=== PATIENT | male | born 1960 | race Caucasian/White ===

== ENCOUNTER 2023-08-31 07:45 | Outpatient (CLI) | payer OTHER, SELFPAY | END 2023-08-31 07:46 | disposition home or self-care (01) | LOC: WOUND 07:50 | PROVIDERS: PCP Family Medicine; Visit Provider Nurse Practitioner Family | DX: E11.621 Type 2 diabetes mellitus with foot ulcer (principal); E11.40 Type 2 diabetes mellitus with diabetic neuropathy, unspecified; L97.512 Non-pressure chronic ulcer of other part of right foot with fat layer exposed; N18.30 Chronic kidney disease, stage 3 unspecified; L60.3 Nail dystrophy; Z89.512 Acquired absence of left leg below knee; Z79.84 Long term (current) use of oral hypoglycemic drugs; Z79.85 Long-term (current) use of injectable non-insulin antidiabetic drugs | CPT/HCPCS: 11042; 11719; G0463 ==

== ENCOUNTER 2023-09-07 08:01 | Outpatient (CLI) | payer OTHER, SELFPAY | END 2023-09-07 08:02 | disposition home or self-care (01) | LOC: WOUND 08:01 | PROVIDERS: PCP Family Medicine; Visit Provider Nurse Practitioner Family | DX: E11.621 Type 2 diabetes mellitus with foot ulcer (principal); E11.40 Type 2 diabetes mellitus with diabetic neuropathy, unspecified; L97.512 Non-pressure chronic ulcer of other part of right foot with fat layer exposed; Z79.84 Long term (current) use of oral hypoglycemic drugs; Z79.85 Long-term (current) use of injectable non-insulin antidiabetic drugs | CPT/HCPCS: 97597 ==

== ENCOUNTER 2023-09-10 14:51 | Outpatient (CLI) | payer OTHER, SELFPAY ==
[2023-09-10 17:13] LABS: Basophils Absolute Auto 0.03 K/uL (0.00-0.30); Basophils Percent Auto 0.3 % (0.0-3.0); Eosinophils Absolute Auto 0.07 K/uL (0.00-0.50); Eosinophils Percent Auto 0.7 % (0.0-7.0); Hematocrit 44.9 % (37.0-53.0); Hemoglobin* 14.5 gm/dL (13.5-17.5); Lymphocytes Absolute Auto 2.04 K/uL (0.90-2.90); Lymphocytes Percent Auto 20.3 % (20-44); Mean Corpuscular HGB Conc 32 gm/dL (32-36); Mean Corpuscular Hemoglobin 30 pg (26-34); Mean Corpuscular Volume 93 fL (80-100); Monocytes Percent Auto 8.3 % (0.0-11.0); Neutrophils Absolute Auto 6.99 K/uL (1.7-7.0); Neutrophils Percent Auto 69.4 % (42.0-72.0); Platelet Count* 183 K/uL (140-440); RDW Coefficient of Variation % 12.5 % (11.5-15.5); Red Blood Count 4.84 m/uL (4.30-5.90); White Blood Count* 10.06 K/uL (4.50-11.00)
[2023-09-10 17:15] LABS: Slide Review Reflex No
[2023-09-10 17:27] LABS: Chloride* 104 mmol/L (96-114); Potassium* 4.4 mmol/L (3.6-5.1); Sodium* 138 mmol/L (135-149)
[2023-09-10 17:30] LABS: Creatinine* 1.6 mg/dL (0.5-1.5); Estimated Glomerular Filt Rate 48 ml/min
[2023-09-10 17:31] LABS: Anion Gap 11 mEq/L (7-15); Blood Urea Nitrogen* 35 mg/dL (7-30); Calcium* 9.4 mg/dL (8.4-10.6); Carbon Dioxide* 23 mmol/L (20-32); Glucose* 89 mg/dL (60-115)
== END 2023-09-10 14:52 | disposition home or self-care (01) ==
LOC: WOUND 14:51
PROVIDERS: PCP Family Medicine; Visit Provider Physician Assistant
DX: E11.621 Type 2 diabetes mellitus with foot ulcer (principal); E11.40 Type 2 diabetes mellitus with diabetic neuropathy, unspecified; L97.518 Non-pressure chronic ulcer of other part of right foot with other specified severity; R52 Pain, unspecified; Z87.39 Personal history of other diseases of the musculoskeletal system and connective tissue; Z89.512 Acquired absence of left leg below knee; Z79.84 Long term (current) use of oral hypoglycemic drugs
CPT/HCPCS: 11042; 36415; 80048; 85025; 86140; 87070; G0463

== ENCOUNTER 2023-09-14 10:03 | Outpatient (CLI) | payer OTHER, SELFPAY | END 2023-09-14 10:04 | disposition home or self-care (01) | LOC: WOUND 10:03 | PROVIDERS: PCP Family Medicine; Visit Provider Nurse Practitioner Family | DX: E11.621 Type 2 diabetes mellitus with foot ulcer (principal); E11.40 Type 2 diabetes mellitus with diabetic neuropathy, unspecified; L97.412 Non-pressure chronic ulcer of right heel and midfoot with fat layer exposed; Z79.84 Long term (current) use of oral hypoglycemic drugs; Z79.85 Long-term (current) use of injectable non-insulin antidiabetic drugs | CPT/HCPCS: 11042 ==

== ENCOUNTER 2023-09-17 12:43 | Outpatient (CLI) | payer OTHER, SELFPAY | END 2023-09-17 12:44 | disposition home or self-care (01) | PROVIDERS: PCP Family Medicine; Visit Provider Nurse Practitioner Family | DX: E11.621 Type 2 diabetes mellitus with foot ulcer (principal); E11.40 Type 2 diabetes mellitus with diabetic neuropathy, unspecified; L97.512 Non-pressure chronic ulcer of other part of right foot with fat layer exposed; Z79.84 Long term (current) use of oral hypoglycemic drugs; Z79.85 Long-term (current) use of injectable non-insulin antidiabetic drugs | CPT/HCPCS: 15275; Q4101 ==

== ENCOUNTER 2023-09-21 08:54 | Outpatient (CLI) | payer OTHER, SELFPAY | END 2023-09-21 08:55 | disposition home or self-care (01) | LOC: WOUND 08:54 | PROVIDERS: PCP Family Medicine; Visit Provider Nurse Practitioner Family | DX: E11.621 Type 2 diabetes mellitus with foot ulcer (principal); E11.40 Type 2 diabetes mellitus with diabetic neuropathy, unspecified; L97.512 Non-pressure chronic ulcer of other part of right foot with fat layer exposed; Z79.84 Long term (current) use of oral hypoglycemic drugs | CPT/HCPCS: G0463 ==

== ENCOUNTER 2023-09-28 08:54 | Outpatient (CLI) | payer OTHER, SELFPAY | END 2023-09-28 08:55 | disposition home or self-care (01) | LOC: WOUND 08:54 | PROVIDERS: PCP Family Medicine; Visit Provider Nurse Practitioner Family | DX: E11.621 Type 2 diabetes mellitus with foot ulcer (principal); E11.40 Type 2 diabetes mellitus with diabetic neuropathy, unspecified; L97.512 Non-pressure chronic ulcer of other part of right foot with fat layer exposed; N18.30 Chronic kidney disease, stage 3 unspecified; Z79.84 Long term (current) use of oral hypoglycemic drugs | CPT/HCPCS: 15275; Q4101 ==

== ENCOUNTER 2023-10-03 08:59 | Outpatient (CLI) | payer OTHER, SELFPAY | END 2023-10-03 09:00 | disposition home or self-care (01) | LOC: WOUND 08:59 | PROVIDERS: PCP Family Medicine; Visit Provider Physician Assistant | DX: E11.621 Type 2 diabetes mellitus with foot ulcer (principal); E11.40 Type 2 diabetes mellitus with diabetic neuropathy, unspecified; L97.515 Non-pressure chronic ulcer of other part of right foot with muscle involvement without evidence of necrosis; E11.22 Type 2 diabetes mellitus with diabetic chronic kidney disease; N18.30 Chronic kidney disease, stage 3 unspecified; Z79.84 Long term (current) use of oral hypoglycemic drugs | CPT/HCPCS: 87070; 87186; 96372; 97597; G0463; J0696 ==

== ENCOUNTER 2023-10-05 10:21 | Outpatient (CLI) | payer OTHER, SELFPAY | END 2023-10-05 10:22 | disposition home or self-care (01) | LOC: WOUND 10:21 | PROVIDERS: PCP Family Medicine; Visit Provider Nurse Practitioner Family | DX: M86.171 Other acute osteomyelitis, right ankle and foot (principal); E11.621 Type 2 diabetes mellitus with foot ulcer; E11.40 Type 2 diabetes mellitus with diabetic neuropathy, unspecified; L97.518 Non-pressure chronic ulcer of other part of right foot with other specified severity; Z79.4 Long term (current) use of insulin; Z79.84 Long term (current) use of oral hypoglycemic drugs | CPT/HCPCS: G0463 ==

== ENCOUNTER 2023-10-05 11:24 | Inpatient (IN) | payer OTHER, SELFPAY ==
[2023-10-05] VITALS (26 sets, daily range): BP systolic 106–145; BP diastolic 54–76; PULSE 62–73; RESP 16–20; TEMP 36.4–37.2; O2SAT 90–98; BMI 41.1
--- NOTE | 2023-10-05 12:07 | ED.GENADULT ---
HPI - General Adult General Chief complaint: Extremity Pain/Injury, Lower Stated complaint: R foot ulcer Time Seen by Provider: 10/05/23 12:06 History of Present Illness HPI narrative: Patient was seen in wound clinic this AM where they are concerned about worsening infection. Has outlined skin on right galicia that was marked on Sunday, redness now extends outside of this border . Also endorses chills and severe neck pain that started at same time 63-year-old man presenting to the emergency department on advice of wound clinic this morning with concern of infection on his galicia. Three days ago started to note some redness in his right galicia. Around this time and also been experiencing some chills. The redness has not expanded from a marked was made on Sunday. Also has of ulcer poorly healing on the right outer right foot. Noted to have a would defer this drainage. This apparently has been collected for wound culture a couple of days ago at the wound clinic. He does have a history of being seen by Podiatry. Who had referred him to the wound clinic. He has had increasing neck pain that seems to have a vault a few days ago as well at rest. Unclear if he actually woke with this. Hurts more to move his neck to the left. Transitions are just painful. Concern is of meningitis. Have not measured a fever but as noted had been chilled. No radicular symptoms noted. Does have a history of amputation of the left lower leg. History of diabetes. Is requesting pain medication mentions oxycodone treatment for pain in his neck and upper back. Related Data Home Medications Medication Instructions Recorded Confirmed amlodipine 10 mg tablet 10 mg PO DAILY 10/05/23 10/05/23 aspirin 81 mg tablet,delayed 81 mg PO DAILY 10/05/23 10/05/23 release atorvastatin 20 mg tablet 20 mg PO DAILY 10/05/23 10/05/23 dulaglutide 3 mg/0.5 mL 3 mg subcut Q7D 10/05/23 10/05/23 subcutaneous pen injector (Trulicity) empagliflozin 25 mg tablet 25 mg PO DAILY 10/05/23 10/05/23 (Jardiance) glipizide 10 mg tablet, extended 20 mg PO DAILY 10/05/23 10/05/23 release 24 hr lisinopril 20 mg tablet 20 mg PO DAILY 10/05/23 10/05/23 lisinopril 20 1 tab PO DAILY 10/05/23 10/05/23 mg-hydrochlorothiazide 25 mg tablet Allergies Allergy/AdvReac Type Severity Reaction Status Date / Time canagliflozin [From Invokana] AdvReac Severe Vomiting Unverified 10/05/23 15:28 liraglutide [From Victoza] AdvReac Intermediate Unverified 10/05/23 15:28 metformin AdvReac Intermediate Unverified 10/05/23 15:28 Review of Systems Status of ROS: Reports: 6 or more systems reviewed and unremarkable except as noted in History and below [facility] Medical History (Updated 10/07/23 @ 12:33 by Lashanda Bai PA-C) Hyperlipidemia ?E78.5 - Hyperlipidemia, unspecified (ICD-10) Diabetic neuropathy ?E11.40 - Type 2 diabetes mellitus with diabetic neuropathy, unspecified (ICD-10) Diabetic retinopathy ?E11.319 - Type 2 diabetes mellitus with unspecified diabetic retinopathy without macular edema (ICD-10) Welcome syndrome ?E80.4 - Gilbert syndrome (ICD-10) Phantom limb pain ?G54.6 - Phantom limb syndrome with pain (ICD-10) CKD (chronic kidney disease) stage 3, GFR 30-59 ml/min ?N18.30 - Chronic kidney disease, stage 3 unspecified (ICD-10) Type 2 diabetes mellitus ?E11.9 - Type 2 diabetes mellitus without complications (ICD-10) Degenerative joint disease (DJD) of lumbar spine ?M47.816 - Spondylosis without myelopathy or radiculopathy, lumbar region (ICD-10) Hypertension ?I10 - Essential (primary) hypertension (ICD-10) Obesity ?E66.9 - Obesity, unspecified (ICD-10) Surgical History (Updated 10/05/23 @ 15:24 by Mary Beth Beard MD) Amputation of fifth toe of left foot ?S98.132A - Complete traumatic amputation of one left lesser toe, initial encounter (ICD-10) H/O spinal fusion ?Z98.1 - Arthrodesis status (ICD-10) Below-knee amputation of left lower extremity ?S88.112A - Complete traumatic amputation at level between knee and ankle, left lower leg, initial encounter (ICD-10) Social History What is your current living situation?: I presently have a place to live Problems where you live: no known problems Problems where you live details: none known In the past 12 months, utilities in danger of being shut off: no In past 12 months, lack of transportation kept you from medical appts, meetings, work, or getting things needed for daily living: no In the past 12 mos, have been you worried that your food would run out before you had money to buy more?: never true In the past 12 mos, the food you bought just didn't last and you didn't have money to buy more?: never true Smoking Status: Never smoker How often do you have a drink containing alcohol: monthly or less AUDIT-C Alcohol total score: 1 Non-prescribed substance use: denies use How often does anyone, including family, friends and others, physically hurt you: never How often does anyone, including family, friends and others, insult or talk down to you: never How often does anyone, including family, friends and others, threaten you with harm: never How often does anyone, including family, friends and others, scream or curse at you: never Exam Narrative: Exam Narrative: Appears generally uncomfortable sitting stiffly. Quite sore to palpation over the left greater than right paracervical musculature and into the rhomboids. Actually cries out as I press the trapezius on the left as well. Limited in head rotation more to the left than the right. Breathing easily. Heart in regular rate and rhythm. Prosthetic in place on the left lower leg consistent with report of below the knee amputation. On the right foot there was some large calluses. At the outer 5th M TP there is an approximately 2 to 2.5 cm maximal dimension ulceration that is oozing some serosanguineous fluid. There is an odor. Erythema surrounding this as well with mild calor. Another patch of erythema in the right mid galicia with mild induration and mild calor. Hand sized area patch here. Const: Vital Signs, click to edit/add: Vital Signs - 24 hr 10/05/23 11:43 Temperature 99 F Pulse Rate [Femora l] 67 Respiratory Rate 20 Blood Pressure [Ri ght Upper Arm] 132/69 Pulse Oximetry 97 Oxygen Delivery Me thod Room Air Documenting provider has reviewed patient's vital signs: yes Course Vital Signs Vital signs: Initial Vital Signs Temperature 99 F 10/05/23 11:43 Temperature Source Temporal Artery Scan 10/05/23 11:43 Pulse Rate 67 10/05/23 11:43 Respiratory Rate 20 10/05/23 11:43 Blood Pressure 132/69 10/05/23 11:43 Blood Pressure Mean 90 10/05/23 11:43 Pulse Oximetry 97 10/05/23 11:43 Oxygen Delivery Method Room Air 10/05/23 11:43 Vital Signs Temperature 99 F 10/05/23 11:43 Pulse Rate 67 10/05/23 11:43 Respiratory Rate 20 10/05/23 11:43 Blood Pressure 132/69 10/05/23 11:43 Pulse Oximetry 97 10/05/23 11:43 Oxygen Delivery Method Room Air 10/05/23 11:43 Temperature 97.4 F L 10/07/23 19:40 Pulse Rate 61 10/07/23 23:00 Respiratory Rate 18 10/08/23 06:00 Blood Pressure 140/70 H 10/07/23 23:00 Pulse Oximetry 95 10/07/23 23:00 Oxygen Delivery Method Room Air 10/07/23 23:00 Medications Administered Medications: Generic Name Dose Route Start Last Admin Trade Name Freq PRN Reason Stop Dose Admin Acetaminophen 650 - 975 mg 10/05/23 15:01 10/08/23 06:21 Acetaminophen 325 Mg Tablet PO 975 mg Q6H PRN Administration Amlodipine Besylate 10 mg 10/06/23 09:00 10/07/23 08:44 Amlodipine 10 Mg Tablet PO 10 mg DAILY OSMIN Administration Atorvastatin Calcium 20 mg 10/06/23 09:00 10/07/23 08:44 Atorvastatin 10 Mg Tablet PO 20 mg DAILY OSMIN Administration Baclofen 5 - 10 mg 10/07/23 21:30 10/07/23 22:45 Baclofen 10 Mg Tablet PO 10 mg Q8H PRN Administration neck pain Glipizide 20 mg 10/06/23 09:00 10/07/23 08:45 Glipizide Xl 5 Mg Tab PO 20 mg DAILY OSMIN Administration Hydromorphone HCl 0.2 - 0.5 mg 10/05/23 19:57 10/08/23 02:30 Hydromorphone 0.5 Mg/0.5 Ml Inj IVP 0.5 mg Q2H PRN Administration Pain Ceftriaxone Sodium 2 gm/ 100 mls @ 200 mls/hr 10/06/23 13:15 10/07/23 13:30 Sodium Chloride IVPB Infused Q24H OSMIN Infusion Vancomycin HCl 1,000 mg/ 260 mls @ 258.75 mls/hr 10/07/23 16:00 10/07/23 19:05 Sodium Chloride IVPB Infused Q24H OSMIN Infusion Protocol Sodium Chloride 1,000 mls @ 50 mls/hr 10/07/23 12:56 10/07/23 15:35 0.9 % Sodium Chloride 1000 Ml IV 10/08/23 08:55 50 mls/hr .Q20H OSMIN Administration Insulin Aspart 0 unit 10/05/23 17:30 10/07/23 20:57 Insulin Aspart 100 Unit/Ml SUBCUT 1 unit ACHS OSMIN Administration Protocol Lidocaine 1 patch 10/06/23 15:00 10/07/23 15:34 Lidocaine 5% Patch TRANSDERMA Not Given Q24H [facility] Protocol Menthol 1 applic 10/06/23 18:00 10/07/23 22:53 Menthol 57 Gm Gel TOPICAL 1 applic Q6H OSMIN Administration Dulaglutide [ 3 mg 10/07/23 11:30 10/07/23 11:39 Trulicity] 3 Mg/0.5 SUBCUT 3 mg Ml Pen Injector Berman@1130 OSMIN Administration Oxycodone HCl 5 mg 10/05/23 19:57 10/08/23 06:22 Oxycodone 5 Mg Tablet PO 5 mg Q4H PRN Administration Sodium Chloride 5 ml 10/05/23 15:01 10/08/23 02:30 Sodium Chloride 0.9 % (Flush) 10 Ml Syringe IVF 5 ml .FLUSH PRN Administration Sodium Chloride 5 ml 10/05/23 21:00 10/07/23 21:30 Sodium Chloride 0.9 % (Flush) 10 Ml Syringe IVF Not Given BID OSMIN Tramadol HCl 50 mg 10/05/23 19:57 10/07/23 20:55 Tramadol Hcl 50 Mg Tablet PO 50 mg Q6H PRN Administration Discontinued Medications Generic Name Dose Route Start Last Admin Trade Name Freq PRN Reason Stop Dose Admin Acetaminophen 325 - 650 mg 10/05/23 17:28 10/05/23 19:07 Acetaminophen 325 Mg Tablet PO 10/05/23 17:29 Not Given ONCE ONE Hydrocodone Bitart/Acetaminophen 2 tab 10/05/23 12:29 10/05/23 12:54 Hydrocodone-Acetamin 5-325 Mg 1 Tab PO 10/05/23 12:30 2 tab ONCE ONE Administration Baclofen 5 - 10 mg 10/06/23 15:30 10/07/23 14:31 Baclofen 10 Mg Tablet PO 10 mg TID OSMIN Administration Bupivacaine HCl 30 ml 10/05/23 17:24 10/05/23 17:20 Bupivacaine 0.5% 30 Ml INJECTION 10/05/23 17:25 20 ml ONCE ONE Administration Sodium Chloride 1,000 mls @ 1,000 mls/hr 10/05/23 12:29 10/05/23 14:10 0.9 % Sodium Chloride 1000 Ml IV 10/05/23 13:28 Infused .Q1H ONE Infusion Piperacillin Sod/Tazobactam 100 mls @ 200 mls/hr 10/05/23 14:27 10/07/23 07:36 Sod 3.375 gm/ Sodium Chloride IVPB 10/05/23 14:28 Infused ONCE ONE Infusion Vancomycin HCl 2,000 mg/ 520 mls @ 260 mls/hr 10/05/23 14:35 10/07/23 07:36 Sodium Chloride IVPB 10/05/23 16:34 Infused ONCE ONE Infusion Protocol Lactated Ringer's 1,000 mls @ 75 mls/hr 10/05/23 15:05 10/07/23 07:37 Lactated Ringers 1000 Ml IV Infused .[id number] OSMIN Infusion Piperacillin Sod/Tazobactam 100 mls @ 200 mls/hr 10/05/23 21:00 10/06/23 10:00 Sod 3.375 gm/ Sodium Chloride IVPB Infused Q6H OSMIN Infusion Vancomycin HCl 1,250 mg/ 262.5 mls @ 258.75 mls/hr 10/06/23 16:00 10/07/23 07:37 Sodium Chloride IVPB Infused Q24H OSMIN Infusion Protocol Sodium Chloride 500 mls @ 500 mls/hr 10/07/23 07:43 10/07/23 10:45 0.9 % Sodium Chloride 500 Ml IV 10/07/23 08:42 Infused .Q1H ONE Infusion Ibuprofen 400 mg 10/05/23 12:29 03/08/24 12:54 Ibuprofen 200 Mg Tablet PO 10/05/23 12:30 400 mg ONCE ONE Administration Meperidine HCl 12.5 mg 10/05/23 17:28 10/05/23 19:07 Meperidine 25 Mg/Ml Inj IVP 10/05/23 17:29 Not Given ONCE ONE Non-Formulary Medication 3 mg 10/05/23 15:15 10/05/23 16:12 Dulaglutide [Trulicity] SUBCUT Not Given Q7D OSMIN Medical Decision Making MDM Narrative Medical decision making narrative: I think the neck issue was more related to some degree of immobility. There appears to be more muscle tension in the area. I do not think this represents meningitis. I would screen for influenza and COVID however. Blood cultures and anticipate IV antibiotics for cellulitis or infected wound. Will be discussing with podiatry. X-rays looking for osteomyelitis. Was given ibuprofen and [place]. Along with soft collar is more comfortable on reassessment. X-ray of the right foot reviewed by me shows ulceration and what looks to be some erosion of the bone in the area of the 5th MTP joint. Vascular calcifications noted as well. Radiology over-read on preliminary noting ?findings suggestive of underlying osteomyelitis modified later to include subcutaneous emphysema Final Report: Indication: Right foot ulcer at 5th MTP. Eval for osteo Technique: Two views of the right foot Comparison: None Findings: No acute fracture or malalignment. There is some degenerative changes throughout the interphalangeal joints and midfoot. Prominent calcaneal enthesophytes. Soft tissue ulcer seen along the lateral aspect of the 5th MTP joint with regional osteopenia/lysis and cortical erosion of the 5th metatarsal head. There is soft tissue edema and subcutaneous emphysema seen in the soft tissues along the 5th metatarsal. Prominent vascular calcifications. Impression: 1. Soft tissue ulcer along the lateral aspect of the 5th MTP joint with radiographic findings suggestive of underlying osteomyelitis of the 5th metatarsal head. 2. Soft tissue edema and subcutaneous emphysema seen in the soft tissues along the 5th metatarsal Initiating Zosyn and vancomycin. Discussed these findings with Podiatry and hospitalist for admission. Medical Records Medical records reviewed: Yes I reviewed the patient's medical records Lab Data Lab results reviewed: Yes I reviewed the patient's lab results Labs: Lab Results 10/05/23 10/05/23 Range/Units 12:55 14:00 WBC 12.41 H (4.50-11.00) K/uL RBC 4.44 (4.30-5.90) m/uL Hgb 13.3 L (13.5-17.5) gm/dL Hct 40.5 (37.0-53.0) % MCV 91 (80-100) fL MCH 30 (26-34) pg MCHC 33 (32-36) gm/dL RDW Coeff of Kushal 12.8 (11.5-15.5) % Plt Count 279 (140-440) K/uL Neut % (Auto) 79.2 H (42.0-72.0) % Lymph % (Auto) 11.7 L (20-44) % [place] % (Auto) 6.7 (0.0-11.0) % Eos % (Auto) 1.2 (0.0-7.0) % Baso % (Auto) 0.2 (0.0-3.0) % Neut # (Auto) 9.80 H (1.7-7.0) K/uL Lymph # (Auto) 1.50 (0.90-2.90) K/uL [place] # (Auto) 0.80 (0.00-0.90) K/UL Eos # (Auto) 0.10 (0.00-0.50) K/uL Baso # (Auto) 0.00 (0.00-0.30) K/uL Abs Immat Gran (auto) 0.10 (0.00-0.30) K/uL Imm/Tot Granulo (auto) 1.0 % VBG pH 7.360 (7.32-7.43) VBG pCO2 44 (40-50) mmHG VBG pO2 (25-47) mmHG VBG HCO3 25 (21-28) mmol/L Sodium 136 (135-149) mmol/L Potassium 4.4 (3.6-5.1) mmol/L Chloride 103 (96-114) mmol/L Carbon Dioxide 24 (20-32) mmol/L Anion Gap 9 (7-15) mEq/L BUN 47 H (7-30) mg/dL Creatinine 1.7 H (0.5-1.5) mg/dL Estimated Creat Clear 43.03 Estimated GFR 45 ml/min Glucose 161 H (60-115) mg/dL Hemoglobin A1c 7.1 H (0-5.6) % Lactate 1.2 (0.5-1.9) mmol/L Calcium 9.5 (8.4-10.6) mg/dL C-Reactive Protein 13.5 H (0.5-1.0) mg/dL Procalcitonin 0.39 (<0.50) ng/mL Urine Color Yellow (Yellow) Urine Appearance Slightly Cloudy A (Clear) Urine pH 5.5 (5.0-8.5) Ur Specific [place] 1.020 (1.000-1.030) Urine Protein Negative (Negative) Urine Glucose (UA) 2+ A (Negative) Urine Ketones Negative (Negative) Urine Blood Negative (Negative) Urine Nitrite Negative (Negative) Urine Bilirubin Negative (Negative) Urine Urobilinogen 0.2 (0.2-1.0) Ur Leukocyte Esterase Negative (Negative) Urine RBC 0-2 (0-2) Urine WBC 5-10 A (0-5) Ur Squamous Epith Cells Few (None-Few) Urine Bacteria None (None) Fine Granular Casts Few A (None) SARS-CoV-2 (PCR) Negative SARS-CoV-2 (Negative) Influenza Type A (PCR) Negative PCR FLU A (Negative) Influenza Type B (PCR) Negative PCR FLU B (Negative) Lab Acknowledgement Test Added Discharge Plan Discharge Clinical Impression: Chronic foot ulcer, Cellulitis, Osteomyelitis Patient Disposition: Admitted As Observation
--- NOTE | 2023-10-05 12:29 | XR_ITS ---
Patient: PORTER ARZATE Facility:?[facility] Patient ID:?[id number] Site Patient ID:?[id number]. Site :?[id number] Study:?XRay-Extremity Right FOOT-10/05/2023 12:48:44 PM Ordering Physician:MARY GRACE Final Report: Indication: Right foot ulcer at 5th MTP. Eval for osteo Technique: Two views of the right foot Comparison: None Findings: No acute fracture or malalignment. There is some degenerative changes throughout the interphalangeal joints and midfoot. Prominent calcaneal enthesophytes. Soft tissue ulcer seen along the lateral aspect of the 5th MTP joint with regional osteopenia/lysis and cortical erosion of the 5th metatarsal head. There is soft tissue edema and subcutaneous emphysema seen in the soft tissues along the 5th metatarsal. Prominent vascular calcifications. Impression: 1. Soft tissue ulcer along the lateral aspect of the 5th MTP joint with radiographic findings suggestive of underlying osteomyelitis of the 5th metatarsal head. 2. Soft tissue edema and subcutaneous emphysema seen in the soft tissues along the 5th metatarsal Dictated by Dm Cox MD @ 10/05/2023 1:04:53 PM Signed by:?Dm Cox MD @10/05/2023 1:04:53 PM (Electronic Signature)
[2023-10-05] MEDS: IBUPROFEN 200 MG TABLET 400 MG PO (12:54)
[2023-10-05] MEDS: HYDROCODONE-ACETAMIN 5-325 MG 1 TAB 2 TAB PO (12:54)
[2023-10-05 13:02] LABS: Lactate* 1.2 mmol/L (0.5-1.9)
[2023-10-05] MEDS: 0.9 % SODIUM CHLORIDE 1000 ml 1,000 ML IV (13:03)
[2023-10-05 13:07] LABS: Basophils Percent Auto 0.2 % (0.0-3.0); Eosinophils Percent Auto 1.2 % (0.0-7.0); Hematocrit 40.5 % (37.0-53.0); Hemoglobin* 13.3 gm/dL (13.5-17.5); Lymphocytes Percent Auto 11.7 % (20-44); Mean Corpuscular HGB Conc 33 gm/dL (32-36); Mean Corpuscular Hemoglobin 30 pg (26-34); Mean Corpuscular Volume 91 fL (80-100); Monocytes Percent Auto 6.7 % (0.0-11.0); Neutrophils Percent Auto 79.2 % (42.0-72.0); Platelet Count* 279 K/uL (140-440); RDW Coefficient of Variation % 12.8 % (11.5-15.5); Red Blood Count 4.44 m/uL (4.30-5.90); White Blood Count* 12.41 K/uL (4.50-11.00)
[2023-10-05 13:14] LABS: Slide Review Reflex No
[2023-10-05 13:18] LABS: Chloride* 103 mmol/L (96-114); Potassium* 4.4 mmol/L (3.6-5.1); Sodium* 136 mmol/L (135-149)
[2023-10-05 13:21] LABS: Anion Gap 9 mEq/L (7-15); Blood Urea Nitrogen* 47 mg/dL (7-30); Carbon Dioxide* 24 mmol/L (20-32); Creatinine* 1.7 mg/dL (0.5-1.5); Est. Creatinine Clearance* 43.03; Estimated Glomerular Filt Rate 45 ml/min
[2023-10-05 13:22] LABS: Calcium* 9.5 mg/dL (8.4-10.6); Glucose* 161 mg/dL (60-115)
[2023-10-05 13:37] LABS: C Reactive Protein* 13.5 mg/dL (0.5-1.0)
[2023-10-05 13:44] LABS: PCR FLU A Negative PCR FLU A (Negative); PCR FLU B Negative PCR FLU B (Negative); SARS PCR* Negative SARS-CoV-2 (Negative)
[2023-10-05 14:23] LABS: Appearance Urine Slightly Cloudy (Clear); Bilirubin Urine Negative (Negative); Blood Urine Negative (Negative); Color Urine Yellow (Yellow); Glucose Urine 2+ (Negative); Ketones Urine Negative (Negative); Leukocyte Esterase Urine Negative (Negative); Nitrite Urine Negative (Negative); Protein Urine Negative (Negative); Urobilinogen Urine 0.2 (0.2-1.0); pH Urine 5.5 (5.0-8.5)
[2023-10-05] MEDS: PIPERACILLIN/TAZOBACTAM 3.375 GM in 0.9 % SODIUM CHLORIDE Mini-bag 100 ML IVPB ×2 (14:40→21:06)
[2023-10-05 14:41] LABS: RBC Urine 0-2 (0-2); Squamous Epithelial Cell Urine Few (None-Few)
[2023-10-05 14:42] LABS: Fine Granular Casts Urine Few
--- NOTE | 2023-10-05 15:28 | ED.NURSE ---
Pt report handed off to marielena REDDY. Pt to room 255.
--- NOTE | 2023-10-05 15:30 | PM.IMHP1 ---
Hospitalist- H&P: HPI History of Present Illness Date Seen: 10/05/23 Chief complaint: R foot ulcer Narrative: ADMISSION HISTORY AND PHYSICAL - HOSPITALIST Chief Complaint: Progressive foot infection, open wound draining HPI: 63-year-old type 2 diabetes, morbid obesity, obstructive sleep apnea, hypertension, hyperlipidemia presents to the emergency room by way of wound care clinic secondary for ongoing concerns of found a right foot infection. This diabetic foot ulcer began last fall, has seen our rn wound care in our wound care clinic. Had an MRI in August that showed no osteo. However, unfortunately, he has had continued erythema, drainage of this wound. Two days ago he was started on doxycycline in the wound care clinic. Systemically he has felt unwell for the last few days. No documented fevers but he has felt feverish. He states his blood sugars have been harder to control. He is not on insulin historically he has had his left lower extremity amputated below the knee for similar problems. Fortunately our staff rn wound care was able to evaluate the patient on the afternoon of admission, 10/05/2023. The plan is for surgical debridement, IV antibiotics, wound care. ER COURSE: X-ray, labs, IV antibiotics and fluids were given in the ED. these labs and x-rays have been reviewed. CODE STATUS: FULL CODE EMERGENCY CONTACT PLAN: Iqra Livingston? ?Rel to [facility]? [phone]?Cell Phone? I've updated the PFSH, medications and allergies in the Expanse tabs. INVESTIGATIONS: LABS/MICRO/ECG/IMAGING CBC reflects an elevated white blood cell count of 12.41, 79% neutrophils. Hemoglobin 13.3. Platelet count normal. Normal electrolytes. CKD, stage III with creatinine 1.7 and BUN of 47, slightly dehydrated likely Lactate normal Glucose 161 CRP 2.0 on September 10 is now up to 13.5 Urine checked in the emergency room shows 2+ glucose of 5-10 white blood cells, urine culture pending Negative respiratory screen Urine culture, blood culture x2, wound culture were all obtained in the emergency room 2 days ago he had a wound culture growing both gram negative rods (large amount) and Gram-positive cocci (alpha strep NOT STREP PNEUMONIA)-awaiting final sensitivities Impression: 1. Soft tissue ulcer along the lateral aspect of the 5th MTP joint with radiographic findings suggestive of underlying osteomyelitis of the 5th metatarsal head. 2. Soft tissue edema and subcutaneous emphysema seen in the soft tissues along the 5th metatarsal REVIEW OF SYSTEMS: 12-point ROS completed with patient and negative unless otherwise stated in HPI or below. PHYSICAL EXAM: CONSTITUTIONAL: Conversive, good historian. A/O. Knows setting and context. VITAL SIGNS: see record. HEMODYNAMICALLY STABLE. AFEBRILE. HEENT: Normocephalic, atraumatic. PERRL, EOMI, conjunctivae pink, no scleral icterus. Ears and nose externally normal. Pharynx normal. NECK: No JVD. No carotid bruit, no thyromegaly, no adenopathy. CHEST: Clear to auscultation bilaterally HEART: S1 and S2 normal. No harsh murmurs. Edema MUSCULOSKELETAL: RIGHT FOOT, SEE PICTURES. OPEN DRAINING WOUND ON THE LATERAL ASPECT OF THE 5TH METATARSAL HEAD. NEURO: Cranial nerves intact. Grossly intact. No asymmetric findings. SKIN: No rashes, petechiae, concerning changes PSYCHIATRIC: Euthymic. ADMIT TO MEDSURG: FLOOR CARE DVT: SCDs on the right foot, Lovenox 1 stable after surgery GI: PO intake Time spent: Today I spent 75 minutes seeing the patient, discussing the patient with ER staff, reviewing Expanse and EPIC notes/diagnostics, discussing the care plan with our care time that includes social work, PT/OT, pharmacy, RT, longterm and documenting my impressions and plan in the medical record. 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 (ICD-10) Phantom limb pain ?G54.6 - Phantom limb syndrome with pain (ICD-10) CKD (chronic kidney disease) stage 3, GFR 30-59 ml/min ?N18.30 - Chronic kidney disease, stage 3 unspecified (ICD-10) Type 2 diabetes mellitus ?E11.9 - Type 2 diabetes mellitus without complications (ICD-10) Degenerative joint disease (DJD) of lumbar spine ?M47.816 - Spondylosis without myelopathy or radiculopathy, lumbar region (ICD-10) Hypertension ?I10 - Essential (primary) hypertension (ICD-10) Obesity ?E66.9 - Obesity, unspecified (ICD-10) Surgical History (Updated 10/05/23 @ 15:24 by Mary Beth Beard MD) Amputation of fifth toe of left foot ?S98.132A - Complete traumatic amputation of one left lesser toe, initial encounter (ICD-10) H/O spinal fusion ?Z98.1 - Arthrodesis status (ICD-10) Below-knee amputation of left lower extremity ?S88.112A - Complete traumatic amputation at level between knee and ankle, left lower leg, initial encounter (ICD-10) Meds Home Medications and Allergies Home Medications Medication Instructions Recorded Confirmed Type amlodipine 10 mg tablet 10 mg PO DAILY 10/05/23 10/05/23 History aspirin 81 mg tablet,delayed 81 mg PO DAILY 10/05/23 10/05/23 History release atorvastatin 20 mg tablet 20 mg PO DAILY 10/05/23 10/05/23 History dulaglutide 3 mg/0.5 mL 3 mg subcut Q7D 10/05/23 10/05/23 History subcutaneous pen injector (Trulicity) empagliflozin 25 mg tablet 25 mg PO DAILY 10/05/23 10/05/23 History (Jardiance) glipizide 10 mg tablet, extended 20 mg PO DAILY 10/05/23 10/05/23 History release 24 hr lisinopril 20 mg tablet 20 mg PO DAILY 10/05/23 10/05/23 History lisinopril 20 1 tab PO DAILY 10/05/23 10/05/23 History mg-hydrochlorothiazide 25 mg tablet Allergies Allergy/AdvReac Type Severity Reaction Status Date / Time canagliflozin [From Invokana] AdvReac Severe Vomiting Unverified 10/05/23 15:28 liraglutide [From Victoza] AdvReac Intermediate Unverified 10/05/23 15:28 metformin AdvReac Intermediate Unverified 10/05/23 15:28 Exam Const: Vital Signs, click to edit/add: Vital Signs - 24 hr 10/05/23 11:43 10/05/23 13:10 10/05/23 13:11 Temperature 99 F Pulse Rate 63 63 Pulse Rate [Femora l] 67 Respiratory Rate 20 Blood Pressure 107/54 L Blood Pressure [Ri ght Upper Arm] 132/69 Pulse Oximetry 97 96 95 [facility] 10/05/23 13:15 10/05/23 13:27 10/05/23 13:30 Temperature 97.5 F L Pulse Rate 63 63 Pulse Rate [Femora l] Respiratory Rate Blood Pressure Blood Pressure [Ri ght Upper Arm] Pulse Oximetry 96 95 Oxygen Delivery [facility] 10/05/23 13:31 10/05/23 13:45 10/05/23 14:04 Temperature Pulse Rate 63 62 66 Pulse Rate [Femora l] Respiratory Rate Blood Pressure 116/59 L Blood Pressure [Ri ght Upper Arm] Pulse Oximetry 95 95 98 Oxygen Delivery [facility] 10/05/23 14:05 10/05/23 14:15 10/05/23 14:30 Temperature Pulse Rate 69 66 63 Pulse Rate [Femora l] Respiratory Rate Blood Pressure 131/59 L Blood Pressure [Ri ght Upper Arm] Pulse Oximetry 97 95 96 Oxygen Delivery [facility] 10/05/23 14:32 10/05/23 14:45 10/05/23 15:00 Temperature Pulse Rate 65 69 65 Pulse Rate [Femora l] Respiratory Rate Blood Pressure 126/67 Blood Pressure [Ri ght Upper Arm] Pulse Oximetry 93 94 92 Oxygen Delivery [facility] 10/05/23 15:02 Temperature Pulse Rate 67 Pulse Rate [Femora l] Respiratory Rate Blood Pressure 127/68 Blood Pressure [Ri ght Upper Arm] Pulse Oximetry 95 Oxygen Delivery [facility] Hospitalist - H&P: Result Labs Labs: Short CBC 10/05/23 Range/Units 12:55 WBC 12.41 H (4.50-11.00) K/uL Hgb 13.3 L (13.5-17.5) gm/dL Hct 40.5 (37.0-53.0) % Plt Count 279 (140-440) K/uL BMP 10/05/23 12:55 Sodium 136 Potassium 4.4 Chloride 103 Carbon Dioxide 24 BUN 47 H Creatinine 1.7 H Glucose 161 H Calcium 9.5 Urine 10/05/23 Range/Units 14:00 Urine Color Yellow (Yellow) Urine Appearance Slightly Cloudy A (Clear) Urine pH 5.5 (5.0-8.5) Ur Specific [place] 1.020 (1.000-1.030) Urine Protein Negative (Negative) Urine Glucose (UA) 2+ A (Negative) Assessment and Plan Assessment and plan (1) Diabetic ulcer of foot associated with diabetes mellitus due to underlying condition, with necrosis of bone: Problem comment: -to the OR tonight for debridement for evidence of gas gangrene and osteomyelitis -IV vanc and Zosyn started in the ED -appreciate the help of Dr. Hoyt Status: Deleted (2) Gas gangrene: Problem comment: to the OR, 10/05/23 likely will need multi-stage interventions Status: Acute (3) Cellulitis: Problem comment: -small area on the right galicia that has outlined with early cellulitic changes Status: Acute (4) MANINDER (obstructive sleep apnea): Problem comment: -not compliant with CPAP Status: Acute (5) Type 2 diabetes mellitus: Problem comment: -A1c -Trulicity, glipizide. SSI, Accuchecks. -had previously been on Jardiance however patient self-discontinued after reading about unhealing wounds and amputations. Status: Acute (6) CKD (chronic kidney disease) stage 3, GFR 30-59 ml/min: Status: Acute (7) Hypertension: Problem comment: -amlodipine 10 mg -lisinopril 40/hydrochlorothiazide 25 -will use hold parameter Status: Acute (8) Hyperlipidemia: Problem comment: -atorvastatin Status: Acute (9) Diabetic foot ulcer with osteomyelitis: Problem comment: -to the OR tonight for debridement for evidence of gas gangrene and osteomyelitis -IV vanc and Zosyn started in the ED -appreciate the help of Dr. Hoyt Status: Acute
--- NOTE | 2023-10-05 15:57 | PM.PODCN1 ---
[facility] - Podiatry Data of Consult Time Seen by Provider: 15:45 Date Seen: 10/05/23 Patient: Ascencion Patient Consult date: 10/05/23 Requesting physician: Mary Beth Beard MD Primary care provider: Wesley Prasad MD Consult Narrative Reason for consult: right diabetic foot infection Narrative: Patient admitted to the hospital for severe diabetic foot infection on the right. He has a history of left [id number] amputation. He is well known to myself and has been seen [facility] for a diabetic ulceration on the right foot. Recently the wound started to look worse than have an odor. He had some increasing redness. Was initially treated with doxycycline wound cultures obtained. Unfortunately the foot has worsened and wound clinic recommended going to the emergency department. From ED: 63-year-old man presenting to the emergency department then admitted to the hospital on advice of wound clinic this morning with concern of infection on his galicia. Three days ago started to note some redness in his right galicia. Around this time and also been experiencing some chills. The redness has not expanded from a marked was made on Sunday. Also has of ulcer poorly healing on the right outer right foot. Noted to have a would defer this drainage. This apparently has been collected for wound culture a couple of days ago at the wound clinic. He does have a history of being seen by Podiatry. Who had referred him to the wound clinic. He has had increasing neck pain that seems to have a vault a few days ago as well at rest. Unclear if he actually woke with this. Hurts more to move his neck to the left. Transitions are just painful. Concern is of meningitis. Have not measured a fever but as noted had been chilled. No radicular symptoms noted. Does have a history of amputation of the left lower leg. History of diabetes. 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 (ICD-10) Phantom limb pain ?G54.6 - Phantom limb syndrome with pain (ICD-10) CKD (chronic kidney disease) stage 3, GFR 30-59 ml/min ?N18.30 - Chronic kidney disease, stage 3 unspecified (ICD-10) Type 2 diabetes mellitus ?E11.9 - Type 2 diabetes mellitus without complications (ICD-10) Degenerative joint disease (DJD) of lumbar spine ?M47.816 - Spondylosis without myelopathy or radiculopathy, lumbar region (ICD-10) Hypertension ?I10 - Essential (primary) hypertension (ICD-10) Obesity ?E66.9 - Obesity, unspecified (ICD-10) Surgical History (Updated 10/05/23 @ 15:24 by Mary Beth Beard MD) Amputation of fifth toe of left foot ?S98.132A - Complete traumatic amputation of one left lesser toe, initial encounter (ICD-10) H/O spinal fusion ?Z98.1 - Arthrodesis status (ICD-10) Below-knee amputation of left lower extremity ?S88.112A - Complete traumatic amputation at level between knee and ankle, left lower leg, initial encounter (ICD-10) Exam Narrative: Exam Narrative: General: No apparent distress resting comfortably. Vascular: Right foot with faint dorsalis pedis and posterior tibial pulses. Capillary fill time less than 3 seconds all digits. Neuro: Insensate to light touch throughout right foot. Musculoskeletal: Muscle strength 5/5 all quadrants. No gross structural deformity. Derm: There is erythema to the lateral foot extending to the ankle with additional extension to the central anterior galicia. There is a open ulceration lateral aspect 5th metatarsal head. There is extensive amount of necrotic tissue to the wound base and periphery. There is purulent drainage from the ulceration. Ulcer probes to bone as well as undermines proximal along the metatarsal shaft. Ulceration is approximately 2.5cm x 2.5cm. X-ray right foot: There erosive changes of the 5th metatarsal head consistent with probable osteomyelitis. There appears to be gas within the tissues proximal to the 5th metatarsal head on the dorsal lateral aspect. White count 12.4 wound, neutrophils 79.2, CRP 13.5 Assessment: Right diabetic foot infection with gas gangrene and underlying osteomyelitis Plan: Joey is in need of urgent surgical I and D. we will proceed to the operating room for incision and drainage of the right foot with partial resection of the 5th metatarsal. This may or may not include amputation of 5th toe. I discussed with Joey that this is stage I of possibly multiple stages in getting the foot to heal. Our goal tonight is to get infection under control. This is a limb-threatening infection. I reviewed the planned procedure with patient and his . Possible complications include continued infection, probable need for future surgery, possible loss of limb and possible loss of life. He consents to proceeding with surgery this evening. We will continue broad-spectrum IV antibiotics. Const: Vital Signs, click to edit/add: Vital Signs - 24 hr 10/05/23 11:43 10/05/23 13:10 10/05/23 13:11 Temperature 99 F Pulse Rate 63 63 Pulse Rate [Femora l] 67 Respiratory Rate 20 Blood Pressure 107/54 L Blood Pressure [Ri ght Upper Arm] 132/69 Pulse Oximetry 97 96 95 Oxygen Delivery Me thod Room Air 10/05/23 13:15 10/05/23 13:27 10/05/23 13:30 Temperature 97.5 F L Pulse Rate 63 63 Pulse Rate [Femora l] Respiratory Rate Blood Pressure Blood Pressure [Ri ght Upper Arm] Pulse Oximetry 96 95 Oxygen Delivery Me thod 10/05/23 13:31 10/05/23 13:45 10/05/23 14:04 Temperature Pulse Rate 63 62 66 Pulse Rate [Femora l] Respiratory Rate Blood Pressure 116/59 L Blood Pressure [Ri ght Upper Arm] Pulse Oximetry 95 95 98 Oxygen Delivery Me thod 10/05/23 14:05 10/05/23 14:15 10/05/23 14:30 Temperature Pulse Rate 69 66 63 Pulse Rate [Femora l] Respiratory Rate Blood Pressure 131/59 L Blood Pressure [Ri ght Upper Arm] Pulse Oximetry 97 95 96 Oxygen Delivery Me thod 10/05/23 14:32 10/05/23 14:45 10/05/23 15:00 Temperature Pulse Rate 65 69 65 Pulse Rate [Femora l] Respiratory Rate Blood Pressure 126/67 Blood Pressure [Ri ght Upper Arm] Pulse Oximetry 93 94 92 Oxygen Delivery [facility] 10/05/23 15:02 Temperature Pulse Rate 67 Pulse Rate [Femora l] Respiratory Rate Blood Pressure 127/68 Blood Pressure [Ri ght Upper Arm] Pulse Oximetry 95 Oxygen Delivery Me thod Documenting provider has reviewed patient's vital signs: yes Nail Debridement Qualifies If: Qualifiers If:: A patient qualifies for nail debridement if they have: 1 class A finding (Q7) 2 class B findings (Q8) OR 1 class B & 2 class C findings in addition to a primary condition (Q9)
[2023-10-05] MEDS: LACTATED RINGERS 1000 ML 1,000 ML 75 ML IV (16:55)
[2023-10-05] MEDS: BUPIVACAINE 0.5% 30 ML INJECTION (17:20)
[2023-10-05 17:39] LABS: Procalcitonin* 0.39 ng/mL (<0.50)
--- NOTE | 2023-10-05 18:06 | W.ANESCHARGE ---
Anesthesia Charges Start Date/Time Anesthesia Start Date: 10/05/23 Anesthesia Start Time: 16:55 Stop Date/Time Anesthesia Stop Date: 10/05/23 Anesthesia Stop Time: 18:00 Summary Emergency: [employer]
--- NOTE | 2023-10-05 18:07 | W.PODPROC_ITS ---
Date of Procedure: 10/05/23 Surgeon: Ciro Hoyt DPM Pre-op Diagnosis: 1. Gas Gangrene right foot 2. Osteomyelitis right 5th metatarsal Post-op Diagnosis: 1. Gas gangrene right foot 2. Osteomyelitis right 5th metatarsal Type of Procedure: 1. I and D right foot 2. Partial 5th metatarsal resection right foot Indications: Patient admitted to the hospital for gas gangrene right foot. He is in need of emergent I and D. I reviewed the procedure, recovery, expectation potential complications. These include but not limited to: Poor wound healing, continued infection, need for future surgery, possible loss of limb, possible loss of life. He understands risks written consent was obtained. Site marked. Procedure Description: Patient brought the operating room placed supine position on operating table. IV sedation was initiated local anesthetic injected into the right foot. He was prepped and draped in sterile fashion. Standard time-out protocol followed. Right foot was exsanguinated the tourniquet inflated. Starting at the open ulceration incision was made coursing proximal along the 5th metatarsal shaft. Significant amount of purulent drainage was encountered. Significant amount of necrotic tissue to the dorsal lateral and plantar aspect of the 5th metatarsal shaft. Adipose tissue was liquified the plantar musculature is a healthy in appearance. Fifth metatarsal has a pathologic fracture at the neck of the significant erosions and necrosis surrounding this area. Sagittal saw was used to resect the 5th metatarsal at the proximal shaft. A 2 mm clear margin was also removed and sent separately to pathology. A deep space culture was obtained and sent for culture and sensitivities. Fifth toe did not have any necrosis proximal to the exposed base and thus the toe was left in place. Once the metatarsal was partially resected the Versajet was used to debride all of the necrotic and gangrenous tissue from the wound to a healthy bleeding margins. Tourniquet was released and normal capillary fill time returned. No sig nificant active bleeding noted. Skin edges with mild bleeding and healthy in appearance. Wound was packed with saline moistened gauze and sterile dressing applied. He was transferred from OR to PACU vital signs stable and vascular status intact. Anesthesia: MAC and local Hemostasis: ankle Estimated blood loss (mL): 5 Specimens: specimen obtained, sent to pathology (Clear margin 5th metatarsal and the remaining infected portion of the 5th metatarsal) Disposition: floor
[2023-10-05 18:43] LABS: Hemoglobin A1C* 7.1 % (0-5.6)
--- NOTE | 2023-10-05 19:02 | PC.NURSE ---
[id number]: Patient is alert and orientated... underwent surgery for R lateral foot ulcer... returned from the OR @ 1800 Post op VS are done @ 1900. Patient is tolerating food with no N/V. Reports a tingling sensation in R foot. Outlined cellulitis zachariah on R galicia that is outside of the byrd. Call light within reach. Iqra in the room. IV LR infusing (1st bag). R foot is wrapped. Per Dr Carrillo the patient can bear weight but only for pivots and transfer, he does not want him to walk on it. Kamila REDDY BSN
[2023-10-05 20:26] LABS: HCO3 VBG 25 mmol/L (21-28); PCO2 VBG 44 mmHG (40-50)
[2023-10-05] MEDS: ACETAMINOPHEN 325 MG TABLET PO (20:35)
[2023-10-05] MEDS: OXYCODONE 5 MG TABLET PO (20:36)
[2023-10-05] MEDS: INSULIN ASPART 100 UNIT/ML SUBCUT (21:03)
[2023-10-05] MEDS: HYDROmorphone 0.5 mg/0.5 ml inj IVP (22:02)
[2023-10-06 01:20] VITALS: BP 130/65; PULSE 60; RESP 16; TEMP 36.5; O2SAT 94
[2023-10-06] MEDS: PIPERACILLIN/TAZOBACTAM 3.375 GM in 0.9 % SODIUM CHLORIDE Mini-bag 100 ML IVPB ×2 (02:53→09:16)
[2023-10-06] MEDS: LACTATED RINGERS 1000 ML 1,000 ML 75 ML IV (03:29)
[2023-10-06 06:19] LABS: HCO3 VBG 25 mmol/L (21-28); PCO2 VBG 50 mmHG (40-50); PO2 VBG < 30.1 mmHG (25-47); pH VBG 7.306 (7.32-7.43)
[2023-10-06 06:26] LABS: Hematocrit 36.7 % (37.0-53.0); Hemoglobin* 11.5 gm/dL (13.5-17.5); Mean Corpuscular HGB Conc 31 gm/dL (32-36); Mean Corpuscular Hemoglobin 29 pg (26-34); Mean Corpuscular Volume 94 fL (80-100); Platelet Count* 270 K/uL (140-440); Red Blood Count 3.91 m/uL (4.30-5.90); Slide Review Reflex No; White Blood Count* 11.58 K/uL (4.50-11.00)
[2023-10-06 06:38] LABS: Chloride* 106 mmol/L (96-114); Potassium* 4.6 mmol/L (3.6-5.1); Sodium* 135 mmol/L (135-149)
[2023-10-06 06:41] LABS: Est. Creatinine Clearance* 36.58; Estimated Glomerular Filt Rate 37 ml/min
[2023-10-06 06:42] LABS: Anion Gap 5 mEq/L (7-15); Blood Urea Nitrogen* 51 mg/dL (7-30); Calcium* 8.6 mg/dL (8.4-10.6); Carbon Dioxide* 24 mmol/L (20-32); Glucose* 105 mg/dL (60-115)
--- NOTE | 2023-10-06 06:46 | PC.NURSE ---
Pt alert and oriented x3 Afebrile. Pt reports 8/10 dull achy/throbbing pain in neck and left foot, pain managed with PRN medications. Pt denies SOB, chest pain, and N/V. Pt?s left foot dressing is CDI. Redness on pt?s left leg did not exceed outline. Pt had difficulties getting comfortable in bed,?attempted to sleep in recliner and slept for a couple hours then switch back to bed. Pt reported feeling uncomfortable with his right antecubital IV and not being able to bend his arm without the IV machine going off, new IV was inserted in left forearm. Right antecubital IV removed with catheter intact. Pt is up A1 pivot to chair and bed. Pt slept intermittently throughout night.??
[2023-10-06 06:59] LABS: C Reactive Protein* 10.9 mg/dL (0.5-1.0); Procalcitonin* 0.33 ng/mL (<0.50)
[2023-10-06 07:00] VITALS: BP 135/57; PULSE 68; RESP 16; TEMP 36.7; O2SAT 96
[2023-10-06] MEDS: glipiZIDE XL 5 MG TAB 20 MG PO (08:03)
[2023-10-06] MEDS: AMLODIPINE 10 MG TABLET PO (08:03)
[2023-10-06] MEDS: ATORVASTATIN 10 MG TABLET 20 MG PO (08:03)
[2023-10-06] MEDS: TRAMADOL HCL 50 MG TABLET PO ×3 (08:04→21:16)
[2023-10-06] MEDS: SODIUM CHLORIDE 0.9 % (FLUSH) 10 ML SYRINGE 5 ML IVF ×2 (09:23→23:28)
[2023-10-06 11:00] VITALS: BP 133/65; PULSE 75; RESP 18; TEMP 36.6; O2SAT 93
--- NOTE | 2023-10-06 11:57 | PM.IMPN1 ---
Progress Note: A&P Assessment and plan (1) Diabetic ulcer of foot associated with diabetes mellitus due to underlying condition, with necrosis of bone: Problem details: -to the OR tonight for debridement for evidence of gas gangrene and osteomyelitis -IV vanc and Zosyn started in the ED -appreciate the help of Dr. Hoyt 3/9: POD#1 s/p I&D right foot, partial 5th metatarsal resection right foot, Dr. Hoyt. Postoperative wound management per Podiatry. -gram stain shows Gram-positive cocci, wound cultures pending Status: Deleted (2) Gas gangrene: Problem details: As above likely will need multi-stage interventions Status: Acute (3) Cellulitis: Problem details: -small area on the right galicia that has outlined with early cellulitic changes -continue Zosyn and vanc, renally dosed Status: Acute (4) Type 2 diabetes mellitus: Problem details: -A1c 7.1 -Trulicity, glipizide. SSI, Accuchecks. -had previously been on Jardiance however patient self-discontinued after reading about unhealing wounds and amputations. Status: Acute (5) CKD (chronic kidney disease) stage 3, GFR 30-59 ml/min: Problem details: -creatinine 2.0, previously 1.6-1.7 -hold lisinopril and HCTZ -renally dose antibiotics as discussed with pharmacy Status: Acute (6) Hypertension: Problem details: -amlodipine 10 mg -lisinopril 40/hydrochlorothiazide 25 (hold 10/05) -will use hold parameter Status: Acute (7) MANINDER (obstructive sleep apnea): Problem details: -not compliant with CPAP Status: Acute (8) Hyperlipidemia: Problem details: -atorvastatin Status: Acute Time Spent With Patient Total time spent: Total time spent caring for the patient today was 45 minutes. This includes time spent for the visit reviewing the chart, time spent during the visit, time spent after the visit and documentation and planning in coordination of care. Subjective Date Seen: 10/06/23 Interval history: Patient reports doing okay this morning. Pain is currently adequately managed. Denies headache or dizziness. Denies chest pain or shortness of breath. Tolerating orals without nausea vomiting. Has remained afebrile. Exam Narrative: Exam Narrative: PHYSICAL EXAM General: Pleasant, conversant, NAD HEENT: Normocephalic, atraumatic, sclera white, EOMI, oral mucosa moist Cardiovascular: RRR, S1S2. Pulmonary: CTA bilaterally without rhonchi, rales, expiratory wheezes. No dyspnea on room air Abdominal: Soft, nondistended, NTTP Neurological: Alert, answering questions appropriately, cranial nerves intact, no focal findings Extremities: LLE BKA. RLE with postoperative dressing in place, dry without drainage. Skin: Warm, dry. Const: Vital Signs, click to edit/add: Vital Signs - 24 hr 10/05/23 13:10 10/05/23 13:11 10/05/23 13:15 Temperature Pulse Rate 63 63 63 Pulse Rate [Left P ulse Oximeter] Respiratory Rate Blood Pressure 107/54 L Blood Pressure [Le ft Arm] Blood Pressure [Ri ght Arm] Pulse Oximetry 96 95 96 Oxygen Delivery Me thod 10/05/23 13:27 10/05/23 13:30 10/05/23 13:31 Temperature 97.5 F L Pulse Rate 63 63 Pulse Rate [Left P ulse Oximeter] Respiratory Rate Blood Pressure 116/59 L Blood Pressure [Le ft Arm] Blood Pressure [Ri ght Arm] Pulse Oximetry 95 95 Oxygen Delivery Me thod 10/05/23 13:45 10/05/23 14:04 10/05/23 14:05 Temperature Pulse Rate 62 66 69 Pulse Rate [Left P ulse Oximeter] Respiratory Rate Blood Pressure 131/59 L Blood Pressure [Le ft Arm] Blood Pressure [Ri ght Arm] Pulse Oximetry 95 98 97 Oxygen Delivery Me thod 10/05/23 14:15 10/05/23 14:30 10/05/23 14:32 Temperature Pulse Rate 66 63 65 Pulse Rate [Left P ulse Oximeter] Respiratory Rate Blood Pressure 126/67 Blood Pressure [Le ft Arm] Blood Pressure [Ri ght Arm] Pulse Oximetry 95 96 93 Oxygen Delivery Me thod 10/05/23 14:45 10/05/23 15:00 10/05/23 15:01 Temperature Pulse Rate 69 65 Pulse Rate [Left P ulse Oximeter] Respiratory Rate Blood Pressure Blood Pressure [Le ft Arm] Blood Pressure [Ri ght Arm] Pulse Oximetry 94 92 96 Oxygen Delivery Me thod Room Air 10/05/23 15:02 10/05/23 16:48 10/05/23 16:48 Temperature 97.9 F Pulse Rate 67 Pulse Rate [Left P ulse Oximeter] 68 Respiratory Rate 18 18 Blood Pressure 127/68 Blood Pressure [Le ft Arm] 110/56 L Blood Pressure [Ri ght Arm] Pulse Oximetry 95 97 97 Oxygen Delivery Me od Room Air Room Air 10/05/23 18:00 10/05/23 18:15 10/05/23 18:30 Temperature 97.6 F 97.6 F 97.6 F Pulse Rate 63 63 73 Pulse Rate [Left P ulse Oximeter] Respiratory Rate 16 16 16 Blood Pressure 106/54 L 122/60 145/76 H Blood Pressure [Le ft Arm] Blood Pressure [Ri ght Arm] Pulse Oximetry 95 95 97 [facility] 10/05/23 18:45 10/05/23 19:50 10/05/23 19:50 Temperature 97.6 F 97.7 F 97.6 F Pulse Rate 66 66 Pulse Rate [Left P ulse Oximeter] 66 Respiratory Rate 16 18 18 Blood Pressure 131/70 120/56 L Blood Pressure [Le ft Arm] 120/56 L Blood Pressure [Ri ght Arm] Pulse Oximetry 97 90 90 [facility] Room [facility] Room Air 10/05/23 20:50 10/05/23 21:50 10/05/23 22:51 Temperature 98.0 F 97.6 F Pulse Rate 62 64 Pulse Rate [Left P ulse Oximeter] Respiratory Rate 18 16 16 Blood Pressure 116/58 L 122/55 L Blood Pressure [Le ft Arm] Blood Pressure [Ri ght Arm] Pulse Oximetry 95 94 [facility] 10/06/23 01:20 10/06/23 07:00 Temperature 97.7 F 98.0 F Pulse Rate Pulse Rate [Left P ulse Oximeter] 60 68 Respiratory Rate 16 16 Blood Pressure Blood Pressure [Le ft Arm] 130/65 Blood Pressure [Ri ght Arm] 135/57 L Pulse Oximetry 94 96 Oxygen Delivery Me od Room Air Room Air Labs Labs: Laboratory Results - last 24 hr 10/05/23 10/05/23 10/06/23 12:55 14:00 05:50 WBC 12.41 H 11.58 H RBC 4.44 3.91 L Hgb 13.3 L 11.5 L Hct 40.5 36.7 L MCV 91 94 MCH 30 29 MCHC 33 31 L RDW Coeff of Kushal 12.8 Plt Count 279 270 Neut % (Auto) 79.2 H Lymph % (Auto) 11.7 L [place] % (Auto) 6.7 Eos % (Auto) 1.2 Baso % (Auto) 0.2 Neut # (Auto) 9.80 H Lymph # (Auto) 1.50 [place] # (Auto) 0.80 Eos # (Auto) 0.10 Baso # (Auto) 0.00 Abs Immat Gran (auto) 0.10 Imm/Tot Granulo (auto) 1.0 VBG pH 7.360 7.306 L VBG pCO2 44 50 VBG pO2 < 30.1 VBG HCO3 25 25 Sodium 136 135 Potassium 4.4 4.6 Chloride 103 106 Carbon Dioxide 24 24 Anion Gap 9 5 L BUN 47 H 51 H Creatinine 1.7 H 2.0 H Estimated Creat Clear 43.03 36.58 Estimated GFR 45 37 Glucose 161 H 105 Hemoglobin A1c 7.1 H Lactate 1.2 Calcium 9.5 8.6 C-Reactive Protein 13.5 H 10.9 H Procalcitonin 0.39 0.33 Urine Color Yellow Urine Appearance Slightly Cloudy A Urine pH 5.5 Ur Specific [place] 1.020 Urine Protein Negative Urine Glucose (UA) 2+ A Urine Ketones Negative Urine Blood Negative Urine Nitrite Negative Urine Bilirubin Negative Urine Urobilinogen 0.2 Ur Leukocyte Esterase Negative Urine RBC 0-2 Urine WBC 5-10 A Ur Squamous Epith Cells Few Urine Bacteria None Fine Granular Casts Few A SARS-CoV-2 (PCR) Negative SARS-CoV-2 Influenza Type A (PCR) Negative PCR FLU A Influenza Type B (PCR) Negative PCR FLU B Lab Acknowledgement Test Added
--- NOTE | 2023-10-06 12:53 | P.PODPN_ITS ---
Podiatry-PN: Subj Subjective Time Seen by Provider: 12:15 Date Seen: 10/06/23 Interval history: Patient seen bedside today at noon. Patient reports doing okay this morning. Pain is currently adequately managed. Denies headache or dizziness. Denies chest pain or shortness of breath. Tolerating orals without nausea vomiting. Has remained afebrile. He is doing well with weight-bearing for transfers only. His is with him today during the visit. Exam Narrative: Exam Narrative: General: No distress resting comfortably Vascular: Palpable pedal pulses right foot. Neuro: Insensate to light touch throughout. Muscle skeletal: Normal strength right foot. Derm: Improved erythema and edema gets still present to the dorsal and lateral foot. There is improved erythema to the mid galicia. Large open wound lateral foot with packing in place. Removal of packing reveals mostly healthy tissue with early granulation. There 2 small areas of skin necrosis but deeper tissues appear to be healthy. There was no longer any purulence. Exposed bone appears healthy. White blood cell count 11.58 CRP 10.9 Wound culture from 10/02: Wound Culture* Final ML Organism 1 ENTEROBACTER CLOACAE COMPLEX Quantity of Growth Moderate amount Organism 2 Enterococcus faecalis Quantity of Growth Small amount LRG. AMT. OF ALPHA HEME STREP NOT STREP PNEUMONIA. ENTCPX E faecalis DIANA RX DIANA RX --------- --- --------- --- Ampicillin <=2 S Cefazolin >=64 R Cefepime <=1 S Cefoxitin >=64 R Ceftazidime <=1 S Ceftriaxone <=1 S Ciprofloxacin <=0.25 S Daptomycin 2 S Ertapenem <=0.5 S Gentamicin <=1 S Imipenem 0.5 S Levofloxacin <=0.12 S Linezolid 2 S Tigecycline <=0.12 S Tobramycin <=1 S Trimethoprim/Sulfamethoxazole <=20 S Vancomycin 2 S Deep cultures from surgery 10/04 are pending but do show Gram-positive cocci on Gram stain. Assessment: Postop day 1 find the right foot with wide debridement and partial 5th metatarsal resection, osteomyelitis right foot, diabetic foot infection rig ht Plan: Wound packing was removed and new wet-to-dry saline moistened gauze dressing applied packing into the wound. No anesthetic necessary due to neuropathy. We will adjust antibiotics for better coverage of the Enterobacter by changing the Zosyn to ceftriaxone and continue with vancomycin. Renal dosing per pharmacy. I would anticipate return to surgery most likely Sunday. This will be dependent upon resolution of the current infection. Const: Vital Signs, click to edit/add: Vital Signs - 24 hr 10/05/23 13:10 10/05/23 13:11 10/05/23 13:15 Temperature Pulse Rate 63 63 63 Pulse Rate [Left P ulse Oximeter] Respiratory Rate Blood Pressure 107/54 L Blood Pressure [Le ft Arm] Blood Pressure [Ri ght Arm] Pulse Oximetry 96 95 96 Oxygen Delivery Me thod 10/05/23 13:27 10/05/23 13:30 10/05/23 13:31 Temperature 97.5 F L Pulse Rate 63 63 Pulse Rate [Left P ulse Oximeter] Respiratory Rate Blood Pressure 116/59 L Blood Pressure [Le ft Arm] Blood Pressure [Ri ght Arm] Pulse Oximetry 95 95 Oxygen Delivery Me thod 10/05/23 13:45 10/05/23 14:04 10/05/23 14:05 Temperature Pulse Rate 62 66 69 Pulse Rate [Left P ulse Oximeter] Respiratory Rate Blood Pressure 131/59 L Blood Pressure [Le ft Arm] Blood Pressure [Ri ght Arm] Pulse Oximetry 95 98 97 Oxygen Delivery Vt thod 10/05/23 14:15 10/05/23 14:30 10/05/23 14:32 Temperature Pulse Rate 66 63 65 Pulse Rate [Left P ulse Oximeter] Respiratory Rate Blood Pressure 126/67 Blood Pressure [Le ft Arm] Blood Pressure [Ri ght Arm] Pulse Oximetry 95 96 93 Oxygen Delivery Me thod 10/05/23 14:45 10/05/23 15:00 10/05/23 15:01 Temperature Pulse Rate 69 65 Pulse Rate [Left P ulse Oximeter] Respiratory Rate Blood Pressure Blood Pressure [Le ft Arm] Blood Pressure [Ri ght Arm] Pulse Oximetry 94 92 96 [facility] 10/05/23 15:02 10/05/23 16:48 10/05/23 16:48 Temperature 97.9 F Pulse Rate 67 Pulse Rate [Left P ulse Oximeter] 68 Respiratory Rate 18 18 Blood Pressure 127/68 Blood Pressure [Le ft Arm] 110/56 L Blood Pressure [Ri ght Arm] Pulse Oximetry 95 97 97 Oxygen Delivery Me thod Room Air Room Air 10/05/23 18:00 10/05/23 18:15 10/05/23 18:30 Temperature 97.6 F 97.6 F 97.6 F Pulse Rate 63 63 73 Pulse Rate [Left P ulse Oximeter] Respiratory Rate 16 16 16 Blood Pressure 106/54 L 122/60 145/76 H Blood Pressure [Le ft Arm] Blood Pressure [Ri ght Arm] Pulse Oximetry 95 95 97 Oxygen Delivery Me thod Room Air Room Air 10/05/23 18:45 10/05/23 19:50 10/05/23 19:50 Temperature 97.6 F 97.7 F 97.6 F Pulse Rate 66 66 Pulse Rate [Left P ulse Oximeter] 66 Respiratory Rate 16 18 18 Blood Pressure 131/70 120/56 L Blood Pressure [Le ft Arm] 120/56 L Blood Pressure [Ri ght Arm] Pulse Oximetry 97 90 90 Oxygen Delivery Me thod Room Air Room Air Room Air 10/05/23 20:50 10/05/23 21:50 10/05/23 22:51 Temperature 98.0 F 97.6 F Pulse Rate 62 64 Pulse Rate [Left P ulse Oximeter] Respiratory Rate 18 16 16 Blood Pressure 116/58 L 122/55 L Blood Pressure [Le ft Arm] Blood Pressure [Ri ght Arm] Pulse Oximetry 95 94 Oxygen Delivery Me thod Room Air Room Air 10/06/23 01:20 10/06/23 07:00 10/06/23 11:00 Temperature 97.7 F 98.0 F 97.8 F Pulse Rate Pulse Rate [Left P ulse Oximeter] 60 68 75 Respiratory Rate 16 16 18 Blood Pressure Blood Pressure [Le ft Arm] 130/65 Blood Pressure [Ri ght Arm] 135/57 L 133/65 Pulse Oximetry 94 96 93 Oxygen Delivery Me thod Room Air Room Air Room Air Podiatry-PN: Obj Labs Labs: Laboratory Results - last 24 hr 10/05/23 10/05/23 10/06/23 12:55 14:00 05:50 WBC 12.41 H 11.58 H RBC 4.44 3.91 L Hgb 13.3 L 11.5 L Hct 40.5 36.7 L MCV 91 94 MCH 30 29 MCHC 33 31 L RDW Coeff of Kushal 12.8 Plt Count 279 270 Neut % (Auto) 79.2 H Lymph % (Auto) 11.7 L [place] % (Auto) 6.7 Eos % (Auto) 1.2 Baso % (Auto) 0.2 Neut # (Auto) 9.80 H Lymph # (Auto) 1.50 [place] # (Auto) 0.80 Eos # (Auto) 0.10 Baso # (Auto) 0.00 Abs Immat Gran (auto) 0.10 Imm/Tot Granulo (auto) 1.0 VBG pH 7.360 7.306 L VBG pCO2 44 50 VBG pO2 < 30.1 VBG HCO3 25 25 Sodium 136 135 Potassium 4.4 4.6 Chloride 103 106 Carbon Dioxide 24 24 Anion Gap 9 5 L BUN 47 H 51 H Creatinine 1.7 H 2.0 H Estimated Creat Clear 43.03 36.58 Estimated GFR 45 37 Glucose 161 H 105 Hemoglobin A1c 7.1 H Lactate 1.2 Calcium 9.5 8.6 C-Reactive Protein 13.5 H 10.9 H Procalcitonin 0.39 0.33 Urine Color Yellow Urine Appearance Slightly Cloudy A Urine pH 5.5 Ur Specific [place] 1.020 Urine Protein Negative Urine Glucose (UA) 2+ A Urine Ketones Negative Urine Blood Negative Urine Nitrite Negative Urine Bilirubin Negative Urine Urobilinogen 0.2 Ur Leukocyte Esterase Negative Urine RBC 0-2 Urine WBC 5-10 A Ur Squamous Epith Cells Few Urine Bacteria None Fine Granular Casts Few A SARS-CoV-2 (PCR) Negative SARS-CoV-2 Influenza Type A (PCR) Negative PCR FLU A Influenza Type B (PCR) Negative PCR FLU B Lab Acknowledgement Test Added
[2023-10-06] MEDS: OXYCODONE 5 MG TABLET PO ×3 (13:21→23:18)
[2023-10-06] MEDS: cefTRIAXone 2 GM in 0.9 % SODIUM CHLORIDE Mini-bag 100 ML IVPB (13:22)
[2023-10-06 15:00] VITALS: BP 134/60; PULSE 75; RESP 18; TEMP 36.6; O2SAT 95
[2023-10-06] MEDS: LIDOCAINE 5% PATCH 1 PATCH TRANSDERMA (15:44)
[2023-10-06] MEDS: BACLOFEN 10 MG TABLET PO ×2 (15:55→21:16)
[2023-10-06] MEDS: INSULIN ASPART 100 UNIT/ML SUBCUT (17:28)
--- NOTE | 2023-10-06 18:27 | PC.NURSE ---
End of Shift [id number]: The patient is plesant and cooperative... VSS on RA. Upon assessment this AM the patient reported mild pain in his R foot at 3/10. PRN tramadol and oxycodone were given throughout the day. The patient washed up this morning. Lungs clear and bowel sounds active. At 1800 the patient reported an increase in pain in his R foot to a 6/10 PRN oxycodone was given. IV abx infused in L forearm IV. R foot dressing was changed by Dr. Hoyt this afternoon and re wrapped. No drainage visible. Elevating his RLE as tolerated. The patient also reported pain in L side of his neck... lidocaine patch was applied... but it would not stay on. Order for icy/hot was obtained and applied to L neck. Weight bearing only for transferring... the patient is to not ambulate. Calls appropriately. visited today. Kamila REDDY BSN
[2023-10-06] MEDS: MENTHOL 57 GM GEL 1 APPLIC TOPICAL ×2 (18:42→23:29)
[2023-10-06 19:00] VITALS: BP 126/59; PULSE 66; RESP 20; O2SAT 95
[2023-10-06 23:30] VITALS: RESP 20
[2023-10-07 05:31] VITALS: RESP 20
--- NOTE | 2023-10-07 06:12 | PC.NURSE ---
End of shift [id number] ? Pt alert, oriented, cooperative, and talkative. Pt able to use urinal at bedside. Can bear weight on R foot and stands and pivots from bed to chair with standby assistance. Pt reports pain in R foot as 6-7/10. Pain managed with medication per MAR with pt reporting tolerating pain and being observed to sleep. R foot dressing CDI, pedal pulse present. Pt observed to move between bed and chair during shift, appears to be resting comfortably at end of shift. ?
[2023-10-07 06:29] LABS: Hematocrit 36.5 % (37.0-53.0); Hemoglobin* 11.5 gm/dL (13.5-17.5); Mean Corpuscular HGB Conc 32 gm/dL (32-36); Mean Corpuscular Hemoglobin 30 pg (26-34); Mean Corpuscular Volume 94 fL (80-100); Platelet Count* 283 K/uL (140-440); Red Blood Count 3.89 m/uL (4.30-5.90); White Blood Count* 11.57 K/uL (4.50-11.00)
[2023-10-07 06:34] LABS: Slide Review Reflex No
[2023-10-07 06:44] LABS: Chloride* 108 mmol/L (96-114); Potassium* 4.6 mmol/L (3.6-5.1); Sodium* 136 mmol/L (135-149)
[2023-10-07 06:47] LABS: Anion Gap 8 mEq/L (7-15); Blood Urea Nitrogen* 53 mg/dL (7-30); Carbon Dioxide* 20 mmol/L (20-32); Creatinine* 2.1 mg/dL (0.5-1.5); Est. Creatinine Clearance* 34.83; Estimated Glomerular Filt Rate 35 ml/min
[2023-10-07 06:48] LABS: Calcium* 8.8 mg/dL (8.4-10.6); Glucose* 98 mg/dL (60-115)
[2023-10-07 06:50] LABS: C Reactive Protein* 5.5 mg/dL (0.5-1.0)
[2023-10-07 07:00] VITALS: BP 141/61; PULSE 67; RESP 18; TEMP 36.4; O2SAT 94
[2023-10-07 07:03] LABS: Procalcitonin* 0.25 ng/mL (<0.50)
[2023-10-07] MEDS: ATORVASTATIN 10 MG TABLET 20 MG PO (08:44)
[2023-10-07] MEDS: AMLODIPINE 10 MG TABLET PO (08:44)
[2023-10-07] MEDS: BACLOFEN 10 MG TABLET PO ×3 (08:44→22:45)
[2023-10-07] MEDS: glipiZIDE XL 5 MG TAB 20 MG PO (08:45)
[2023-10-07] MEDS: OXYCODONE 5 MG TABLET PO ×3 (08:45→22:45)
[2023-10-07] MEDS: ACETAMINOPHEN 325 MG TABLET PO ×2 (08:45→17:39)
[2023-10-07] MEDS: 0.9 % SODIUM CHLORIDE 500 ML 500 ML IV (08:46)
--- NOTE | 2023-10-07 10:59 | W.PM.PODPN ---
Podiatry-PN: Subj Subjective Time Seen by Provider: 10:30 Date Seen: 10/07/23 Interval history: Patient seen bedside this morning. Pain is currently adequately managed. Denies headache or dizziness. Denies chest pain or shortness of breath. Tolerating orals without nausea vomiting. Has remained afebrile. He is working on [employer] with PT. His is with him today during the visit. Exam Narrative: Exam Narrative: General: No distress. Vascular: Palpable pedal pulses right foot. Neuro: Insensate to light touch throughout. Muscle skeletal: Normal strength right foot. Derm: Improved erythema and edema to the dorsal and lateral foot. There is improved erythema to the mid galicia Which is mostly resolved. Large open wound lateral foot with packing in place. Removal of packing reveals mostly healthy tissue with early granulation. There remain 2 small areas of skin necrosis but deeper tissues appear to be healthy. There was no longer any purulence. Exposed bone appears healthy. White blood cell count 11.57 CRP 5.5 Deep cultures from surgery 10/04 show Enterococcus faecalis sensitive to vancomycin. Assessment: Postop day 2 right foot wide debridement and partial 5th metatarsal resection, osteomyelitis right foot, diabetic foot infection right Plan: Wound packing was removed and new wet-to-dry saline moistened gauze dressing applied packing into the wound. No anesthetic necessary due to neuropathy. continue IV antibiotics. Renal dosing per pharmacy. I would anticipate return to surgery most likely Sunday. This will be dependent upon resolution of the current infection. Const: Vital Signs, click to edit/add: Vital Signs - 24 hr 10/06/23 11:00 10/06/23 15:00 10/06/23 19:00 Temperature 97.8 F 97.9 F Pulse Rate [Left P ulse Oximeter] 75 75 66 Respiratory Rate 18 18 20 Blood Pressure [Le ft Arm] 134/60 Blood Pressure [Ri ght Arm] 133/65 126/59 L Pulse Oximetry 93 95 95 Oxygen Delivery Me thod Room Air Room Air Room Air 10/06/23 23:30 10/07/23 05:31 10/07/23 07:00 Temperature 97.5 F L Pulse Rate [Left P ulse Oximeter] 67 Respiratory Rate 20 20 18 Blood Pressure [Le ft Arm] 141/61 H Blood Pressure [Ri ght Arm] Pulse Oximetry 94 Oxygen Delivery Me thod Room Air Podiatry-PN: Obj Labs Labs: Laboratory Results - last 24 hr 10/07/23 05:50 WBC 11.57 H RBC 3.89 L Hgb 11.5 L Hct 36.5 L MCV 94 MCH 30 MCHC 32 Plt Count 283 Sodium 136 Potassium 4.6 Chloride 108 Carbon Dioxide 20 Anion Gap 8 BUN 53 H Creatinine 2.1 H Estimated Creat Clear 34.83 Estimated GFR 35 Glucose 98 Calcium 8.8 C-Reactive Protein 5.5 H Procalcitonin 0.25
[2023-10-07 11:00] VITALS: BP 140/65; PULSE 61; RESP 16; TEMP 36.5; O2SAT 94
[2023-10-07] MEDS: DULAGLUTIDE 3 MG/0.5 ML 3 EACH SUBCUT (11:39)
--- NOTE | 2023-10-07 12:26 | PM.IMPN1 ---
Progress Note: A&P Assessment and plan (1) Diabetic ulcer of foot associated with diabetes mellitus due to underlying condition, with necrosis of bone: Problem details: -to the OR tonight for debridement for evidence of gas gangrene and osteomyelitis -IV vanc and Zosyn started in the ED -appreciate the help of Dr. Hoyt POD#2 s/p I&D right foot, partial 5th metatarsal resection right foot, Dr. Hoyt. Postoperative wound management per Podiatry. -NWB RLE, heel touch for transfer currently, but will need to be strict NWB following Sunday's surgery. -gram stain shows Gram-positive cocci, aerobe culture growing Enterococcus faecalis -Continues on IV vancomycin. Zosyn discontinued. Ceftriaxone started 10/05 Status: Deleted (2) Gas gangrene: Problem details: As above likely will need multi-stage interventions. Plan is for OR on 10/09/2023 Status: Acute (3) Cellulitis: Problem details: -small area on the right galicia that has outlined with early cellulitic changes - improving -continue vanc and ceftriaxone, renally dosed Status: Acute (4) Type 2 diabetes mellitus: Problem details: -A1c 7.1 -Trulicity, glipizide. SSI, Accuchecks. -had previously been on Jardiance however patient self-discontinued after reading about unhealing wounds and amputations. Status: Acute (5) CKD (chronic kidney disease) stage 3, GFR 30-59 ml/min: Problem details: -creatinine 2.1, previously 1.6-1.7 -hold lisinopril and HCTZ -renally dose antibiotics as discussed with pharmacy -500 mL NS bolus on 10/06. Recheck creatinine in a.m. Status: Acute (6) Hypertension: Problem details: -amlodipine 10 mg -lisinopril 40/hydrochlorothiazide 25 (hold 10/05) -will use hold parameter Status: Acute (7) MANINDER (obstructive sleep apnea): Problem details: -not compliant with CPAP Status: Acute (8) Hyperlipidemia: Problem details: -atorvastatin Status: Acute Time Spent With Patient Total time spent: Total time spent caring for the patient today was 45 minutes. This includes time spent for the visit reviewing the chart, time spent during the visit, time spent after the visit and documentation and planning in coordination of care. Subjective Date Seen: 10/07/23 Interval history: Patient continues to do well postoperatively. Pain remains adequately managed. Patient remains afebrile. Tolerating orals without nausea vomiting. Awaiting 2nd surgery, likely to be Sunday10/09/23. Followed by Dr. Hoyt Exam Narrative: Exam Narrative: PHYSICAL EXAM General: Pleasant, conversant, NAD HEENT: Normocephalic, atraumatic, sclera white, EOMI, oral mucosa moist Cardiovascular: RRR, S1S2. Pulmonary: CTA bilaterally without rhonchi, rales, expiratory wheezes. No dyspnea on room air Abdominal: Soft, nondistended, NTTP Neurological: Alert, answering questions appropriately, cranial nerves intact, no focal findings Extremities: LLE BKA. RLE examined with podiatry, dressing removed, wound is packed, no surrounding erythema. Right erythema over [place] receding, dull. Skin: Warm, dry. Const: Vital Signs, click to edit/add: Vital Signs - 24 hr 10/06/23 15:00 10/06/23 19:00 10/06/23 23:30 Temperature 97.9 F Pulse Rate [Left P ulse Oximeter] 75 66 Respiratory Rate 18 20 20 Blood Pressure [Le ft Arm] 134/60 Blood Pressure [Ri ght Arm] 126/59 L Pulse Oximetry 95 95 Oxygen Delivery Me thod Room Air Room Air 10/07/23 05:31 10/07/23 07:00 10/07/23 07:00 Temperature 97.5 F L Pulse Rate [Left P ulse Oximeter] 67 67 Respiratory Rate 20 18 18 Blood Pressure [Le ft Arm] 141/61 H Blood Pressure [Ri ght Arm] Pulse Oximetry 94 Oxygen Delivery Me thod Room Air 10/07/23 11:00 Temperature 97.7 F Pulse Rate [Left P ulse Oximeter] 61 Respiratory Rate 16 Blood Pressure [Le ft Arm] 140/65 H Blood Pressure [Ri ght Arm] Pulse Oximetry 94 Oxygen Delivery Me thod Room Air Labs Labs: Laboratory Results - last 24 hr 10/07/23 05:50 WBC 11.57 H RBC 3.89 L Hgb 11.5 L Hct 36.5 L MCV 94 MCH 30 MCHC 32 Plt Count 283 Sodium 136 Potassium 4.6 Chloride 108 Carbon Dioxide 20 Anion Gap 8 BUN 53 H Creatinine 2.1 H Estimated Creat Clear 34.83 Estimated GFR 35 Glucose 98 Calcium 8.8 C-Reactive Protein 5.5 H Procalcitonin 0.25
[2023-10-07] MEDS: cefTRIAXone 2 GM in 0.9 % SODIUM CHLORIDE Mini-bag 100 ML IVPB (12:54)
[2023-10-07] MEDS: MENTHOL 57 GM GEL 1 APPLIC TOPICAL ×3 (12:54→22:53)
[2023-10-07] MEDS: INSULIN ASPART 100 UNIT/ML SUBCUT ×2 (12:55→20:57)
[2023-10-07 15:00] VITALS: BP 143/61; PULSE 60; RESP 16; TEMP 36.4; O2SAT 93
[2023-10-07] MEDS: 0.9 % SODIUM CHLORIDE 1000 ml 1,000 ML 50 ML IV (15:35)
--- NOTE | 2023-10-07 18:33 | PC.NURSE ---
End of shift-- Pleasant and cooperative, alert and oriented patient. VSS and pt is afebrile. SPO2 maintained >90% on RA. Pain appears well controlled with Oxycodone and Tylenol PRN. Dressing to right foot was changed by Dr. Hoyt this morning and is C/D/I. Cap refill < 3sec. LS CTA. BS+ x4 and pt had 2x moderate, soft BMs today. He tolerated a regular diet without difficulty. He was up to the chair and commode with SBA and walker, pivot transfer and tolerated it well.
[2023-10-07 19:40] VITALS: BP 138/60; PULSE 62; RESP 18; TEMP 36.3; O2SAT 95
[2023-10-07] MEDS: TRAMADOL HCL 50 MG TABLET PO (20:55)
[2023-10-07 23:00] VITALS: BP 140/70; PULSE 61; RESP 18; O2SAT 95
[2023-10-08] MEDS: SODIUM CHLORIDE 0.9 % (FLUSH) 10 ML SYRINGE 5 ML IVF ×2 (02:30→08:48)
[2023-10-08] MEDS: HYDROmorphone 0.5 mg/0.5 ml inj IVP ×3 (02:30→13:48)
[2023-10-08 06:00] VITALS: RESP 18
[2023-10-08 06:15] LABS: Hematocrit 36.6 % (37.0-53.0); Hemoglobin* 11.5 gm/dL (13.5-17.5); Mean Corpuscular HGB Conc 31 gm/dL (32-36); Mean Corpuscular Hemoglobin 30 pg (26-34); Mean Corpuscular Volume 94 fL (80-100); Platelet Count* 259 K/uL (140-440)
[2023-10-08 06:17] LABS: Slide Review Reflex No
[2023-10-08] MEDS: ACETAMINOPHEN 325 MG TABLET PO ×3 (06:21→21:37)
[2023-10-08] MEDS: OXYCODONE 5 MG TABLET PO ×5 (06:22→23:56)
[2023-10-08 06:26] LABS: Chloride* 111 mmol/L (96-114); Potassium* 4.9 mmol/L (3.6-5.1); Sodium* 137 mmol/L (135-149)
[2023-10-08 06:29] LABS: Anion Gap 4 mEq/L (7-15); Carbon Dioxide* 22 mmol/L (20-32); Creatinine* 1.5 mg/dL (0.5-1.5); Est. Creatinine Clearance* 48.77; Estimated Glomerular Filt Rate 52 ml/min
[2023-10-08 06:30] LABS: Blood Urea Nitrogen* 40 mg/dL (7-30); Glucose* 83 mg/dL (60-115)
[2023-10-08 07:00] VITALS: BP 137/62; PULSE 62; PULSE 63; RESP 18; TEMP 36.5; O2SAT 94
[2023-10-08] MEDS: MENTHOL 57 GM GEL 1 APPLIC TOPICAL (07:44)
[2023-10-08] MEDS: glipiZIDE XL 5 MG TAB 20 MG PO (08:42)
[2023-10-08] MEDS: ATORVASTATIN 10 MG TABLET 20 MG PO (08:42)
[2023-10-08] MEDS: AMLODIPINE 10 MG TABLET PO (08:42)
[2023-10-08] MEDS: ONDANSETRON 2 MG/ML inj 4 MG IVP (09:30)
[2023-10-08 09:47] VITALS: BMI 42.1
--- NOTE | 2023-10-08 10:28 | PM.IMPN1 ---
Progress Note: A&P Assessment and plan (1) Diabetic ulcer of foot associated with diabetes mellitus due to underlying condition, with necrosis of bone: Problem details: -to the OR 10/04 for debridement for evidence of gas gangrene and osteomyelitis -IV vanc and Zosyn started in the ED -appreciate the help of Dr. Hoyt 3: POD#3 s/p I&D right foot, partial 5th metatarsal resection right foot, Dr. Hoyt. Postoperative wound management per Podiatry. -NWB RLE, heel touch for transfer currently, but will need to be strict NWB following Sunday' surgery -pain management Tylenol, p.r.n. oxycodone, p.r.n. Dilaudid -10/02 culture growing Enterobacter cloacae and facecalis -10/04 gram stain shows Gram-positive cocci, aerobic/anaerobic culture in progress -Continues on IV vancomycin. Zosyn discontinued. Ceftriaxone started 10/[address] Hoyt and pharmacy -2nd surgery currently planned for 10/08. NPO at midnight Status: Deleted (2) Gas gangrene: Problem details: As above likely will need multi-stage interventions. Plan is for OR on 10/09/2023 Status: Acute (3) Cellulitis: Problem details: -small area on the right galicia that has outlined with early cellulitic changes - improving -continue vanc and ceftriaxone, renally dosed -BC/UC negative Status: Acute (4) Type 2 diabetes mellitus: Problem details: -A1c 7.1 -Trulicity, glipizide. SSI, Accuchecks. -had previously been on Jardiance however patient self-discontinued after reading about unhealing wounds and amputations. Status: Acute (5) CKD (chronic kidney disease) stage 3, GFR 30-59 ml/min: Problem details: -creatinine 1.6-1.7-2.0-2.1 -hold lisinopril and HCTZ -renally dose antibiotics as discussed with pharmacy -500 mL NS bolus on 10/06 followed by gentle fluids overnight -creatinine improved to 1.5, BUN downtrending, continue to monitor Status: Acute (6) Hypertension: Problem details: -amlodipine 10 mg -lisinopril 40/hydrochlorothiazide 25 (hold 10/05) -will use hold parameter Status: Acute (7) MANINDER (obstructive sleep apnea): Problem details: -not compliant with CPAP Status: Acute (8) Hyperlipidemia: Problem details: -atorvastatin Status: Acute Plan Current plan, NPO at midnight, return to OR Sunday Time Spent With Patient Total time spent: Total time spent caring for the patient today was 45 minutes. This includes time spent for the visit reviewing the chart, time spent during the visit, time spent after the visit and documentation and planning in coordination of care. Subjective Date Seen: 10/08/23 Interval history: Patient continues to do well. Is complaining of throbbing pain in the right foot this morning. Remains afebrile. Vitally stable. Tolerating orals without nausea vomiting. Awaiting 2nd surgery currently planned for tomorrow with Dr. Hoyt. Exam Narrative: Exam Narrative: PHYSICAL EXAM General: Pleasant, conversant, NAD HEENT: Normocephalic, atraumatic, sclera white, EOMI, oral mucosa moist Cardiovascular: RRR, S1S2. +2 pitting edema Pulmonary: CTA bilaterally without rhonchi, rales, expiratory wheezes. No dyspnea on room air Abdominal: Soft, nondistended, NTTP Neurological: Alert, answering questions appropriately, cranial nerves intact, no focal findings Extremities: LLE BKA. RLE dressing in place, dry. Right galicia stable. +2 pitting edema noted Skin: Warm, dry. Const: Vital Signs, click to edit/add: Vital Signs - 24 hr 10/07/23 11:00 10/07/23 15:00 10/07/23 15:00 Temperature 97.7 F 97.6 F Pulse Rate [Left P ulse Oximeter] 61 60 60 Pulse Rate [Pulse Oximeter] Respiratory Rate 16 16 16 Blood Pressure [Le ft Arm] 140/65 H 143/61 H Blood Pressure [Ri ght Arm] Pulse Oximetry 94 93 Oxygen Delivery Me thod Room Air Room Air 10/07/23 19:40 10/07/23 19:40 10/07/23 23:00 Temperature 97.4 F L Pulse Rate [Left P ulse Oximeter] Pulse Rate [Pulse Oximeter] 62 62 61 Respiratory Rate 18 18 18 Blood Pressure [Le ft Arm] 138/60 Blood Pressure [Ri ght Arm] 140/70 H Pulse Oximetry 95 95 Oxygen Delivery Me thod Room Air Room Air 10/07/23 23:00 10/08/23 06:00 10/08/23 07:00 Temperature Pulse Rate [Left P ulse Oximeter] Pulse Rate [Pulse Oximeter] 63 Respiratory Rate 18 18 18 Blood Pressure [Le ft Arm] Blood Pressure [Ri ght Arm] Pulse Oximetry Oxygen Delivery Me thod 10/08/23 07:00 Temperature 97.7 F Pulse Rate [Left P ulse Oximeter] Pulse Rate [Pulse Oximeter] 62 Respiratory Rate 18 Blood Pressure [Le ft Arm] Blood Pressure [Ri ght Arm] 137/62 Pulse Oximetry 94 Oxygen Delivery Me thod Room Air Labs Labs: Laboratory Results - last 24 hr 10/08/23 06:04 WBC 10.90 RBC 3.90 L Hgb 11.5 L Hct 36.6 L MCV 94 MCH 30 MCHC 31 L Plt Count 259 Sodium 137 Potassium 4.9 Chloride 111 Carbon Dioxide 22 Anion Gap 4 L BUN 40 H Creatinine 1.5 Estimated Creat Clear 48.77 Estimated GFR 52 Glucose 83 Calcium 9.0
[2023-10-08 11:00] VITALS: BP 148/63; PULSE 64; RESP 18; TEMP 36.5; O2SAT 93
--- NOTE | 2023-10-08 11:50 | PC.SOCIAL ---
Discharge planning: hide mill worker met with pt today to discuss his return home after this hospital stay. Pt stated he feels good about returning home with help from his and he has no concerns right now. Pt is aware of how to contact the social work department, if needed. Social work to follow-up as needed.
[2023-10-08] MEDS: cefTRIAXone 2 GM in 0.9 % SODIUM CHLORIDE Mini-bag 100 ML IVPB (13:49)
[2023-10-08 15:00] VITALS: BP 168/63; PULSE 74; RESP 18; TEMP 36.4; O2SAT 95
--- NOTE | 2023-10-08 17:35 | W.PM.PODPN ---
Podiatry-PN: Subj Subjective Time Seen by Provider: 17:35 Date Seen: 10/08/23 Interval history: Patient continues to do well. Remains afebrile. Vitally stable. Tolerating orals without nausea vomiting. He has concerns with discharge for wound care. He states his will not be able to do so she is having surgery. Exam Narrative: Exam Narrative: General: No distress resting comfortably Vascular: Palpable pedal pulses right foot. Neuro: Insensate to light touch throughout. Muscle skeletal: Normal strength right foot. Derm: Improved and nearly resolved erythema and edema present to the dorsal and lateral foot. There is improved erythema to the mid galicia. Large open wound lateral foot with packing in place. White blood cell count 10.9 Assessment: Postop day 3 right foot with wide debridement and partial 5th metatarsal resection, osteomyelitis right foot, diabetic foot infection right Plan: Wound packing was removed and new wet-to-dry saline moistened gauze dressing applied packing into the wound by nursing. I plan to return to surgery Sunday around 5:00 p.m.. I reviewed with Joey that I am planning on primary closure. Hopefully he will need home health care for dressing changes. There is a chance he would need home health care for IV antibiotics. Path results not currently available. Would anticipate him being ready tomorrow. Const: Vital Signs, click to edit/add: Vital Signs - 24 hr 10/07/23 19:40 10/07/23 19:40 10/07/23 23:00 Temperature 97.4 F L Pulse Rate [Pulse Oximeter] 62 62 61 Respiratory Rate 18 18 18 Blood Pressure [Le ft Arm] 138/60 Blood Pressure [Ri ght Arm] 140/70 H Pulse Oximetry 95 95 Oxygen Delivery Me thod Room Air Room Air 10/07/23 23:00 10/08/23 06:00 10/08/23 07:00 Temperature Pulse Rate [Pulse Oximeter] 63 Respiratory Rate 18 18 18 Blood Pressure [Le ft Arm] Blood Pressure [Ri ght Arm] Pulse Oximetry Oxygen Delivery Me thod 10/08/23 07:00 10/08/23 11:00 10/08/23 15:00 Temperature 97.7 F 97.7 F Pulse Rate [Pulse Oximeter] 62 64 74 Respiratory Rate 18 18 18 Blood Pressure [Le ft Arm] 148/63 H Blood Pressure [Ri ght Arm] 137/62 Pulse Oximetry 94 93 Oxygen Delivery Me thod Room Air Room Air 10/08/23 15:00 Temperature 97.6 F Pulse Rate [Pulse Oximeter] 74 Respiratory Rate 18 Blood Pressure [Le ft Arm] 168/63 H Blood Pressure [Ri ght Arm] Pulse Oximetry 95 Oxygen Delivery Me thod Room Air Podiatry-PN: Obj Labs Labs: Laboratory Results - last 24 hr 10/08/23 06:04 WBC 10.90 RBC 3.90 L Hgb 11.5 L Hct 36.6 L MCV 94 MCH 30 MCHC 31 L Plt Count 259 Sodium 137 Potassium 4.9 Chloride 111 Carbon Dioxide 22 Anion Gap 4 L BUN 40 H Creatinine 1.5 Estimated Creat Clear 48.77 Estimated GFR 52 Glucose 83 Calcium 9.0
--- NOTE | 2023-10-08 19:56 | PC.NURSE ---
Patient alert and oriented. Dressing change done. Patient tolerating a reg. diet. BG within limits not sliding scale used. see eMAR.
[2023-10-08 20:00] VITALS: BP 133/65; PULSE 61; RESP 16; TEMP 37.2; O2SAT 95
[2023-10-09] VITALS (13 sets, daily range): BP systolic 114–152; BP diastolic 49–70; PULSE 53–70; RESP 16–20; TEMP 36.7–37.1; O2SAT 93–97
[2023-10-09 06:28] LABS: Hematocrit 36.3 % (37.0-53.0); Hemoglobin* 11.4 gm/dL (13.5-17.5); Mean Corpuscular HGB Conc 31 gm/dL (32-36); Mean Corpuscular Hemoglobin 30 pg (26-34); Mean Corpuscular Volume 94 fL (80-100); Platelet Count* 268 K/uL (140-440); Red Blood Count 3.86 m/uL (4.30-5.90); White Blood Count* 10.85 K/uL (4.50-11.00)
[2023-10-09 06:31] LABS: Slide Review Reflex No
[2023-10-09 06:36] LABS: Chloride* 110 mmol/L (96-114); Sodium* 138 mmol/L (135-149)
[2023-10-09 06:39] LABS: Anion Gap 4 mEq/L (7-15); Blood Urea Nitrogen* 33 mg/dL (7-30); Carbon Dioxide* 24 mmol/L (20-32); Creatinine* 1.4 mg/dL (0.5-1.5); Est. Creatinine Clearance* 52.25; Estimated Glomerular Filt Rate 56 ml/min
[2023-10-09 06:40] LABS: Glucose* 85 mg/dL (60-115)
[2023-10-09] MEDS: OXYCODONE 5 MG TABLET PO ×2 (07:27→20:50)
[2023-10-09] MEDS: MENTHOL 57 GM GEL 1 APPLIC TOPICAL (07:27)
[2023-10-09] MEDS: AMLODIPINE 10 MG TABLET PO (08:05)
[2023-10-09] MEDS: ACETAMINOPHEN 325 MG TABLET PO ×2 (08:06→23:59)
[2023-10-09] MEDS: ATORVASTATIN 10 MG TABLET 20 MG PO (08:06)
[2023-10-09] MEDS: SODIUM CHLORIDE 0.9 % (FLUSH) 10 ML SYRINGE 5 ML IVF ×2 (09:03→20:50)
[2023-10-09] MEDS: 5 % DEXTROSE IN LAC RINGER'S 1,000 ML 75 ML IV (09:03)
--- NOTE | 2023-10-09 10:18 | P.IMPN_ITS ---
Progress Note: A&P Assessment and plan (1) Diabetic ulcer of foot associated with diabetes mellitus due to underlying condition, with necrosis of bone: Problem details: -to the OR 10/04 for debridement for evidence of gas gangrene and osteomyelitis -IV vanc and Zosyn started in the ED -Dr. Hoyt, fast food manager, following 10/07: POD#4 s/p I&D right foot, partial 5th metatarsal resection right foot, Dr. Hoyt. Postoperative wound management per Podiatry. -NWB RLE, heel touch for transfer currently, but will need to be strict NWB following Sunday' surgery -pain management Tylenol, p.r.n. oxycodone, p.r.n. Dilaudid -10/02 culture growing Enterobacter cloacae and facecalis -10/04 gram stain shows Gram-positive cocci, aerobic/anaerobic culture in progress -Continues on IV vancomycin. Zosyn discontinued. Ceftriaxone started 10/[address] Hoyt and pharmacy -2nd surgery currently planned for the afternoon of 10/08. NPO now. Status: Deleted (2) Gas gangrene: Problem details: As above likely will need multi-stage interventions. Plan is for OR on 10/09/2023 Status: Acute (3) Cellulitis: Problem details: -small area on the right galicia that has outlined with early cellulitic changes - improving -continue vanc and ceftriaxone, renally dosed -BC/UC negative Status: Acute (4) Type 2 diabetes mellitus: Problem details: -A1c 7.1 -Trulicity, glipizide. SSI, Accuchecks. -had previously been on Jardiance however patient self-discontinued after reading about unhealing wounds and amputations. -D5 LR while NPO. Status: Acute (5) CKD (chronic kidney disease) stage 3, GFR 30-59 ml/min: Problem details: -creatinine 1.6-1.7-2.0-2.1 -hold lisinopril and HCTZ -renally dose antibiotics as discussed with pharmacy -500 mL NS bolus on 10/06 followed by gentle fluids overnight -creatinine improving, 1.4 this morning, BUN normalizing, continue to monitor Status: Acute (6) Hypertension: Problem details: -amlodipine 10 mg -lisinopril 40/hydrochlorothiazide 25 (hold 3/9) -will use hold parameter Status: Acute (7) MANINDER (obstructive sleep apnea): Problem details: -not compliant with CPAP Status: Acute (8) Hyperlipidemia: Problem details: -atorvastatin Status: Acute Plan 1. Reviewed with patient. 2. Patient agreeable with above stated plans and recommendations. Time Spent With Patient Total time spent: 30 minutes Subjective Date Seen: 10/09/23 Interval history: 63-year-old man with right diabetic foot ulcer, gas gangrene, osteomyelitis, status post incision and drainage 10/05/2023 will be going back to the operating room later this afternoon for additional more definitive new debridement. Tolerating IV antibiotics. Blood sugars adequately managed. Morning blood sugars tend to be low, this morning glucose is 71. Did eat afterward. NPO now for surgery later on. About to start D5 LR. Oral glipizide is on hold. Still on a insulin sliding scale. Exam Narrative: Exam Narrative: Appears comfortable and in no acute distress. Vision and hearing are adequate. Alert and oriented to self, place, time, situation. Friendly, cooperative, articulate. Lungs are clear to auscultation. Heart tones with regular rhythm. Right foot dressing in place. Left lower extremity below the knee amputation with prosthesis in place. Const: Vital Signs, click to edit/add: Vital Signs - 24 hr 10/08/23 11:00 10/08/23 15:00 10/08/23 15:00 Temperature 97.7 F 97.6 F Pulse Rate [Pulse Oximeter] 64 74 74 Respiratory Rate 18 18 18 Blood Pressure [Le ft Arm] 148/63 H 168/63 H Blood Pressure [Ri ght Arm] Pulse Oximetry 93 95 Oxygen Delivery Me thod Room Air Room Air 10/08/23 20:00 10/08/23 20:00 10/09/23 00:00 Temperature 99.0 F Pulse Rate [Pulse Oximeter] 61 61 Respiratory Rate 16 16 18 Blood Pressure [Le ft Arm] Blood Pressure [Ri ght Arm] 133/65 Pulse Oximetry 95 Oxygen Delivery Me thod Room Air 10/09/23 00:00 10/09/23 05:30 10/09/23 07:00 Temperature Pulse Rate [Pulse Oximeter] 53 L Respiratory Rate 18 20 16 Blood Pressure [Le ft Arm] Blood Pressure [Ri ght Arm] Pulse Oximetry Oxygen Delivery Me thod 10/09/23 07:55 Temperature 98.6 F Pulse Rate [Pulse Oximeter] 53 L Respiratory Rate 16 Blood Pressure [Le ft Arm] 114/49 L Blood Pressure [Ri ght Arm] Pulse Oximetry 93 Oxygen Delivery Me thod Room Air Documenting provider has reviewed patient's vital signs: yes Labs Labs: Laboratory Results - last 24 hr 10/09/23 05:45 WBC 10.85 RBC 3.86 L Hgb 11.4 L Hct 36.3 L MCV 94 MCH 30 MCHC 31 L Plt Count 268 Sodium 138 Potassium 5.0 Chloride 110 Carbon Dioxide 24 Anion Gap 4 L BUN 33 H Creatinine 1.4 Estimated Creat Clear 52.25 Estimated GFR 56 Glucose 85 Calcium 9.0
--- NOTE | 2023-10-09 13:52 | PC.SOCIAL ---
Addendum entered by KATIUSKA Murguia 10/09/23 15:10: Discharge planning: merchandise worker met with pt and his today to discuss resources in the home. merchandise worker explained [facility] as a private pay option. merchandise worker explained that the surgeon would not know recommendations for Home Care until he does the surgery this evening. Pt and his were thankful for the assistance. Social work to follow-up as needed. Original Note: Discharge planning: merchandise worker checked in with Dr. Hoyt on recommendations for Home Care and whether the pt will need it after surgery. Dr. Hoyt stated that he will not know the recommendations until after the surgery. Social work will follow-up on any surgical recommendations on Sunday. merchandise worker also spoke with pt's , Iqra, and explained that recommendations would not be known until after surgery. Iqra was understanding and thankful for the update. Social work to follow-up as needed.
[2023-10-09] MEDS: cefTRIAXone 2 GM in 0.9 % SODIUM CHLORIDE Mini-bag 100 ML IVPB (13:53)
[2023-10-09] MEDS: BUPIVACAINE 0.5% 30 ML INJECTION (17:30)
--- NOTE | 2023-10-09 18:51 | W.PODPROC_ITS ---
Date of Procedure: 10/09/23 Surgeon: Ciro Hoyt DPM Pre-op Diagnosis: 1. Osteomyelitis 5th metatarsal right foot 2. Gas gangrene right foot Post-op Diagnosis: 1. Osteomyelitis 5th metatarsal right 2. Gas gangrene right foot Type of Procedure: 1. Delayed primary closure of right foot wound 2. Amputation 5th toe right foot Indications: Patient had initial white debridement and partial metatarsal resection for gas gangrene osteomyelitis. Infection has cleared from the subcutaneous tissues and raise additional surgery is necessary. I reviewed the procedure, recovery, expectation potential complications. These include but are not limited to: Poor wound healing, continued infection, potential need for future surgery, limb loss, possible loss of life. He understands written consent was obtained. Site marked. Procedure Description: Patient brought the operating room placed supine position on operating table. IV sedation initiated local anesthetic injected into the right foot. He was prepped and draped in standard fashion. Standard time-out protocol followed. Thorough irrigation of the open wound performed. A Versajet used to debride in fracture and the skin edge and the overall wound in general. Only a small area of necrotic tissue was noted. No area of purulence. The underlying bone appeared healthy. A distal incision was made starting at the distal portion of the open wound extending dorsal and plantar to the 5th toe at the base and converging medially. The toe was removed in total. The phalangeal base was necrotic in appearance. Remaining subcutaneous tissues. Healthy. Bleeding vessels cauterized. Limb was exsanguinated the tourniquet inflated. This actually increased bleeding so we let the tourniquet down. We thoroughly irrigated with normal sterile saline. The plantar skin from the toe was utilized to rotate and advance proximal to the plantar portion of the original open ulceration and this was sutured together using 2 0 and 3-0 nylon with retention sutures. Next the toe amputation site was closed with 3-0 nylon. The remaining large open wound coursing proximal was then closed using multiple retention sutures with 2-0 nylon. In the central and distal portions of this incision the tension was manageable. Proximal to this we had to create bolsters out of nonstick dressing rolled into tubes. We then passed 2-0 nylon in a retention style suture with the suture tied over the bolsters reducing downward tension on the fragile skin. 2 additional 3-0 nylon sutures were placed the proximal most aspect of the incision and did not require bolsters. We were able to close the wound entirely. Sterile dressings were then applied. He was transferred from [place] [facility] with vital signs stable and vascular status intact to the right foot. Anesthesia: MAC and local Hemostasis: ankle Estimated blood loss (mL): 30 Specimens: none sent Disposition: floor
--- NOTE | 2023-10-09 18:59 | P.ANES_ITS ---
Anesthesia Charges Start Date/Time Anesthesia Start Date: 10/09/23 Anesthesia Start Time: 17:13 Stop Date/Time Anesthesia Stop Date: 10/09/23 Anesthesia Stop Time: 18:53 Summary Emergency: [employer]
--- NOTE | 2023-10-09 19:40 | PC.NURSE ---
End of shift-- Pleasant and cooperative, alert and oriented. VSS and pt is afebrile. SPO2 maintained >90% on RA. Pain appears well controlled with Oxycodone and Tylenol PRN. Pt to OR at roughly 1700 and returned at 1852. Dressing to right foot is C/D/I. LS CTA. He denied nausea and is tolerating a regular diet. BS 70-120s today and pt was given no additional insulin. was at bedside today and appears loving and supportive. Report to BARRY Crabtree.
[2023-10-09] MEDS: INSULIN ASPART 100 UNIT/ML SUBCUT (20:50)
[2023-10-10] VITALS (8 sets, daily range): BP systolic 136–143; BP diastolic 59–67; PULSE 55–62; RESP 16–20; TEMP 36.5–37.2; O2SAT 93–96
[2023-10-10] MEDS: OXYCODONE 5 MG TABLET PO ×5 (00:25→23:05)
--- NOTE | 2023-10-10 06:20 | PC.NURSE ---
End of shift [id number]: A&O pleasant and cooperative. VSS w/ sats >90% on RA. Dressing to right foot c/d/i. CMS intact. Rating pain 0-7/10. See eMAR for interventions. Non wt bearing per orders. Using urinal at bedside. Restful vitals overnight
[2023-10-10 06:22] LABS: Hematocrit 36.4 % (37.0-53.0); Hemoglobin* 11.4 gm/dL (13.5-17.5); Mean Corpuscular HGB Conc 31 gm/dL (32-36); Mean Corpuscular Hemoglobin 30 pg (26-34); Mean Corpuscular Volume 94 fL (80-100); Platelet Count* 269 K/uL (140-440); Red Blood Count 3.87 m/uL (4.30-5.90); White Blood Count* 10.32 K/uL (4.50-11.00)
[2023-10-10 06:26] LABS: Slide Review Reflex No
[2023-10-10 06:36] LABS: Chloride* 109 mmol/L (96-114); Sodium* 137 mmol/L (135-149)
[2023-10-10 06:38] LABS: Creatinine* 1.2 mg/dL (0.5-1.5); Est. Creatinine Clearance* 60.96; Estimated Glomerular Filt Rate 68 ml/min
[2023-10-10 06:39] LABS: Anion Gap 3 mEq/L (7-15); Blood Urea Nitrogen* 23 mg/dL (7-30); Calcium* 9.1 mg/dL (8.4-10.6); Carbon Dioxide* 25 mmol/L (20-32); Glucose* 86 mg/dL (60-115)
--- NOTE | 2023-10-10 06:54 | P.PODPN_ITS ---
Podiatry-PN: Subj Subjective Time Seen by Provider: 06:45 Date Seen: 10/10/23 Interval history: Seen bedside this a.m. postop day 1. He is doing well without complaints. Pain is well controlled. Exam Narrative: Exam Narrative: General: No distress Dressings clean dry and intact. Incision is well coapted. No gapping or dehiscence. Surrounding tissues appear healthy with minimal edema and minimal erythema. Pathology: Pending White blood cell count: Normal Assessment: Postop day 1 delayed primary closure with 5th toe amputation right foot. Plan: We are still waiting on pathology results to determine whether he needs additional long-term IV antibiotics at discharge. Patient may need PICC line based on results of the path report. In discussion with the patient today I feel he would benefit from an additional day in the hospital for continued work with physical therapy for nonweightbearing and ability to remain with bedrest f ollowing closure. Closure of the wound was exceedingly tight and early weight- bearing could lead to failure. Recommend discharge home morning. Const: Vital Signs, click to edit/add: Vital Signs - 24 hr 10/09/23 07:00 10/09/23 07:55 10/09/23 11:00 Temperature 98.6 F 98.8 F Pulse Rate Pulse Rate [Pulse Oximeter] 53 L 53 L 60 Respiratory Rate 16 16 16 Blood Pressure Blood Pressure [Le ft Arm] 114/49 L 144/62 H Blood Pressure [Ri ght Arm] Pulse Oximetry 93 95 Oxygen Delivery Me thod Room Air Room Air 10/09/23 15:00 10/09/23 15:00 10/09/23 18:50 Temperature 98.8 F 98.1 F Pulse Rate 59 L Pulse Rate [Pulse Oximeter] 55 L 55 L Respiratory Rate 16 16 16 Blood Pressure 141/69 H Blood Pressure [Le ft Arm] Blood Pressure [Ri ght Arm] 134/68 Pulse Oximetry 96 95 Oxygen Delivery Me thod Room Air Room Air 10/09/23 19:00 10/09/23 19:45 10/09/23 20:15 Temperature 98.1 F 98.6 F Pulse Rate Pulse Rate [Pulse Oximeter] 58 L 56 L 70 Respiratory Rate 16 16 16 Blood Pressure Blood Pressure [Le ft Arm] Blood Pressure [Ri ght Arm] 141/69 H 152/70 H 152/70 H Pulse Oximetry 97 96 Oxygen Delivery Me thod Room Air Room Air 10/09/23 21:20 10/09/23 22:52 10/09/23 23:00 Temperature 98.5 F Pulse Rate Pulse Rate [Pulse Oximeter] 61 67 Respiratory Rate 16 16 16 Blood Pressure Blood Pressure [Le ft Arm] Blood Pressure [Ri ght Arm] 145/65 H 152/66 H Pulse Oximetry 97 96 Oxygen Delivery Me thod Room Air Room Air 10/10/23 03:06 10/10/23 06:04 Temperature Pulse Rate Pulse Rate [Pulse Oximeter] Respiratory Rate 16 18 Blood Pressure Blood Pressure [Le ft Arm] Blood Pressure [Ri ght Arm] Pulse Oximetry Oxygen Delivery Me thod Podiatry-PN: Obj Labs Labs: Laboratory Results - last 24 hr 10/10/23 05:58 WBC 10.32 RBC 3.87 L Hgb 11.4 L Hct 36.4 L MCV 94 MCH 30 MCHC 31 L Plt Count 269 Sodium 137 Potassium 5.0 Chloride 109 Carbon Dioxide 25 Anion Gap 3 L BUN 23 Creatinine 1.2 Estimated Creat Clear 60.96 Estimated GFR 68 Glucose 86 Calcium 9.1
[2023-10-10] MEDS: lisinopriL 20 MG TABLET 40 MG PO (08:58)
[2023-10-10] MEDS: ATORVASTATIN 10 MG TABLET 20 MG PO (08:59)
[2023-10-10] MEDS: SODIUM CHLORIDE 0.9 % (FLUSH) 10 ML SYRINGE 5 ML IVF ×2 (08:59→20:50)
[2023-10-10] MEDS: hydroCHLOROthiazide 25 MG TABLET PO (08:59)
[2023-10-10] MEDS: AMLODIPINE 10 MG TABLET PO (08:59)
[2023-10-10] MEDS: glipiZIDE XL 5 MG TAB 20 MG PO (08:59)
[2023-10-10] MEDS: ACETAMINOPHEN 325 MG TABLET PO ×2 (11:10→19:17)
[2023-10-10] MEDS: MENTHOL 57 GM GEL 1 APPLIC TOPICAL ×2 (12:17→17:59)
--- NOTE | 2023-10-10 16:05 | P.IMPN_ITS ---
Progress Note: A&P Assessment and plan (1) Diabetic ulcer of foot associated with diabetes mellitus due to underlying condition, with necrosis of bone: Problem details: -to the OR 10/04 for debridement for evidence of gas gangrene and osteomyelitis -IV vanc and Zosyn started in the ED -Dr. Hoyt, barrel leveler, following 10/08: POD#4 s/p I&D right foot, partial 5th metatarsal resection right foot, Dr. Hoyt. Postoperative wound management per Podiatry. -NWB RLE, heel touch for transfer currently, but will need to be strict NWB following surgery -pain management Tylenol, p.r.n. oxycodone, p.r.n. Dilaudid -10/02 culture growing Enterobacter cloacae and facecalis -10/04 gram stain shows Gram-positive cocci, aerobic/anaerobic culture in progress -Continues on IV vancomycin. Zosyn discontinued. Ceftriaxone started 10/[address] Hoyt and pharmacy 10/09: Continue with IV antibiotics as noted above for now. Await pathology results and deep anaerobic wound cultures obtained during surgery. Hope to discuss with Infectious Disease once we obtain these results. Continue work with physical therapy and occupational therapy to help establish a safe discharge disposition plan. Status: Deleted (2) Gas gangrene: Problem details: As above Status: Acute (3) Cellulitis: Problem details: -small area on the right galicia that has outlined with early cellulitic changes - improving -continue vanc and ceftriaxone, renally dosed -BC/UC negative Status: Acute (4) Type 2 diabetes mellitus: Problem details: -A1c 7.1 -Trulicity, glipizide. SSI, Accuchecks. -had previously been on Jardiance however patient self-discontinued after reading about unhealing wounds and amputations. Status: Acute (5) CKD (chronic kidney disease) stage 3, GFR 30-59 ml/min: Problem details: -creatinine 1.6-1.7-2.0-2.1 -hold lisinopril and HCTZ -renally dose antibiotics as discussed with pharmacy -500 mL NS bolus on 10/06 followed by gentle fluids overnight -creatinine improving, 1.4 this morning, BUN normalizing, continue to monitor Status: Acute (6) Hypertension: Problem details: -amlodipine 10 mg -lisinopril 40/hydrochlorothiazide 25 (hold 10/05) -will use hold parameter Status: Acute (7) MANINDER (obstructive sleep apnea): Problem details: -not compliant with CPAP Status: Acute (8) Hyperlipidemia: Problem details: -atorvastatin Status: Acute (9) Peripheral vascular disease: Status: Acute (10) Status post below-knee amputation of left lower extremity: Problem details: - utilizes prosthesis Status: Acute (11) Diabetic foot ulcer with osteomyelitis: Problem details: -to the OR 10/05/23 for debridement for evidence of gas gangrene and osteomyelitis -IV vanc and Zosyn started in the ED -on IV ceftriaxone and vancomycin now. Status: Acute Plan 1. Patient agreeable with above stated plans and recommendations. Time Spent With Patient Total time spent: 40 minutes Subjective Date Seen: 10/10/23 Interval history: Postoperative day 1 status post right 5th metatarsal amputation. Postoperative day 5 status post incision and drainage of gas gangrene in right foot. Hospital day 6. Pain adequately managed today. Denies nausea or vomiting. Blood sugars adequately controlled at this time. Tolerating oral intake. Working with Physical and Occupational therapy to establish a safe discharge plan. Still awaiting results of pathology and deep anaerobic cultures. Continues on IV antibiotics including ceftriaxone and vancomycin. Exam Narrative: Exam Narrative: Examine him in his hospital room. Appears comfortable in no acute distress. Alert and oriented to self, place, time, situation. Friendly, articulate, cooperative. Lungs are clear to auscultation. Heart tones with regular rhythm. Abdomen with active bowel sounds, soft, nontender. Left [id number] amputation, chronic. Right foot with dressing in place, surgeon already examine this area earlier this morning. Const: Vital Signs, click to edit/add: Vital Signs - 24 hr 10/09/23 18:50 10/09/23 19:00 10/09/23 19:45 Temperature 98.1 F 98.1 F Pulse Rate 59 L Pulse Rate [Pulse Oximeter] 58 L 56 L Respiratory Rate 16 16 16 Blood Pressure 141/69 H Blood Pressure [Le ft Arm] Blood Pressure [Ri ght Arm] 141/69 H 152/70 H Pulse Oximetry 95 97 96 Oxygen Delivery Me thod Room Air Room Air Room Air 10/09/23 20:15 10/09/23 21:20 10/09/23 22:52 Temperature 98.6 F 98.5 F Pulse Rate Pulse Rate [Pulse Oximeter] 70 61 67 Respiratory Rate 16 16 16 Blood Pressure Blood Pressure [Le ft Arm] Blood Pressure [Ri ght Arm] 152/70 H 145/65 H 152/66 H Pulse Oximetry 97 96 [facility] 10/09/23 23:00 10/10/23 03:06 10/10/23 06:04 Temperature Pulse Rate Pulse Rate [Pulse Oximeter] Respiratory Rate 16 16 18 Blood Pressure Blood Pressure [Le ft Arm] Blood Pressure [Ri ght Arm] Pulse Oximetry Oxygen Delivery Me thod 10/10/23 07:44 10/10/23 07:44 10/10/23 11:05 Temperature 98.1 F 98.4 F Pulse Rate Pulse Rate [Pulse Oximeter] 55 L 55 L 60 Respiratory Rate 16 16 16 Blood Pressure Blood Pressure [Le ft Arm] Blood Pressure [Ri ght Arm] 143/64 H 141/67 H Pulse Oximetry 95 94 [facility] Air 10/10/23 15:00 10/10/23 15:00 Temperature 97.7 F Pulse Rate Pulse Rate [Pulse Oximeter] 59 L 59 L Respiratory Rate 20 20 Blood Pressure Blood Pressure [Le ft Arm] 136/59 L Blood Pressure [Ri ght Arm] Pulse Oximetry 93 [facility] Labs Labs: Laboratory Results - last 24 hr 10/10/23 05:58 WBC 10.32 RBC 3.87 L Hgb 11.4 L Hct 36.4 L MCV 94 MCH 30 MCHC 31 L Plt Count 269 Sodium 137 Potassium 5.0 Chloride 109 Carbon Dioxide 25 Anion Gap 3 L BUN 23 Creatinine 1.2 Estimated Creat Clear 60.96 Estimated GFR 68 Glucose 86 Calcium 9.1
--- NOTE | 2023-10-10 17:56 | PC.NURSE ---
End of Shift: Patient pleasant and cooperative. Patient vitally stable, lungs clear, BS WNL, IV intact and SL. Patient rates pain 4-6/10, tylenol and oxy given once. Patient 1 assist/walker to recliner. Patient tolerating regular diet and urinating by urinal. Patient has been up in recliner all shift. Blood sugars 91,128, and 149. Evelina performed dressing change today.
[2023-10-10] MEDS: INSULIN ASPART 100 UNIT/ML SUBCUT (20:50)
[2023-10-11] VITALS (8 sets, daily range): BP systolic 127–145; BP diastolic 55–93; PULSE 56–62; RESP 16–62; TEMP 36.6–37.1; O2SAT 93–96
[2023-10-11] MEDS: ACETAMINOPHEN 325 MG TABLET PO ×3 (01:54→22:37)
[2023-10-11] MEDS: TRAMADOL HCL 50 MG TABLET PO (01:55)
[2023-10-11] MEDS: OXYCODONE 5 MG TABLET PO ×3 (06:04→22:37)
--- NOTE | 2023-10-11 06:38 | PC.NURSE ---
End of shift [id number]: A&O pleasant and cooperative. VSS w/ sats >90% on RA. Rating pain in right foot 4-01/06. See eMAR for interventions.?Dressing to right foot c/d/i. CMS intact. Non weight bearing per orders. Refused [place] this shift. Using urinal at bedside.?
[2023-10-11 06:40] LABS: Hematocrit 37.1 % (37.0-53.0); Hemoglobin* 11.7 gm/dL (13.5-17.5); Mean Corpuscular HGB Conc 32 gm/dL (32-36); Mean Corpuscular Hemoglobin 30 pg (26-34); Mean Corpuscular Volume 94 fL (80-100); Platelet Count* 264 K/uL (140-440); Red Blood Count 3.95 m/uL (4.30-5.90); White Blood Count* 9.49 K/uL (4.50-11.00)
[2023-10-11 06:50] LABS: Chloride* 109 mmol/L (96-114); Potassium* 4.9 mmol/L (3.6-5.1); Sodium* 137 mmol/L (135-149)
[2023-10-11 06:53] LABS: Anion Gap 5 mEq/L (7-15); Blood Urea Nitrogen* 26 mg/dL (7-30); Carbon Dioxide* 23 mmol/L (20-32); Creatinine* 1.2 mg/dL (0.5-1.5); Est. Creatinine Clearance* 60.96; Estimated Glomerular Filt Rate 68 ml/min; Slide Review Reflex No
[2023-10-11 06:54] LABS: Calcium* 9.2 mg/dL (8.4-10.6); Glucose* 101 mg/dL (60-115)
[2023-10-11] MEDS: ATORVASTATIN 10 MG TABLET 20 MG PO (08:56)
[2023-10-11] MEDS: hydroCHLOROthiazide 25 MG TABLET PO (08:56)
[2023-10-11] MEDS: glipiZIDE XL 5 MG TAB 20 MG PO (08:56)
[2023-10-11] MEDS: lisinopriL 20 MG TABLET 40 MG PO (08:56)
[2023-10-11] MEDS: SODIUM CHLORIDE 0.9 % (FLUSH) 10 ML SYRINGE 5 ML IVF ×3 (08:56→21:21)
[2023-10-11] MEDS: AMLODIPINE 10 MG TABLET PO (08:56)
--- NOTE | 2023-10-11 16:21 | PM.IMPN1 ---
Progress Note: A&P Assessment and plan (1) Diabetic ulcer of foot associated with diabetes mellitus due to underlying condition, with necrosis of bone: Problem details: -to the OR 10/04 for debridement for evidence of gas gangrene and osteomyelitis -IV vanc and Zosyn started in the ED -Dr. Hoyt, administrative fellow, following 10/08: POD#4 s/p I&D right foot, partial 5th metatarsal resection right foot, Dr. Hoyt. Postoperative wound management per Podiatry. -NWB RLE, heel touch for transfer currently, but will need to be strict NWB following Sunday' surgery -pain management Tylenol, p.r.n. oxycodone, p.r.n. Dilaudid -10/02 culture growing Enterobacter cloacae and facecalis -10/04 gram stain shows Gram-positive cocci, aerobic/anaerobic culture in progress -Continues on IV vancomycin. Zosyn discontinued. Ceftriaxone started 10/[address] Hoyt and pharmacy 10/09: Continue with IV antibiotics as noted above for now. Await pathology results and deep anaerobic wound cultures obtained during surgery. Hope to discuss with Infectious Disease once we obtain these results. Continue work with physical therapy and occupational therapy to help establish a safe discharge disposition plan. 10/11/2023: Pathology demonstrates osteomyelitis in margins. I discussed case with Dr. Reno, infectious disease specialists, via telephone today. She recommended 6 weeks of IV meropenem 1 g q.8 hours, to complete a full 6 week course of IV antibiotics. He has completed 1 week of IV antibiotics while in hospital. Will need to complete another 5 more weeks. Ordered PICC line placement today. Held family conference with patient, , wound care center clinician, nursing staff, and social media senior associate. The tentative plan for now is for short-term alf facility placement for ongoing IV antibiotic therapy via PICC line, wound care, physical and occupational therapy given the mobility problems that he now has beyond his baseline. Concurrently wound care center staff will work toward assessing patient for possible hyperbaric oxygen therapy. Patient and would like to complete the IV antibiotic therapy in their home if at all possible and begin hyperbaric oxygen therapy once patient's ability to transfer self and move about is safer than what it currently is given the limitations he currently has with nonweightbearing on the affected right lower extremity and left lower extremity below the knee amputation and prosthesis. Status: Deleted (2) Gas gangrene: Problem details: As above Status: Acute (3) Cellulitis: Problem details: -small area on the right galicia that has outlined with early cellulitic changes - improving -continue vanc and ceftriaxone, renally dosed -BC/UC negative Status: Acute (4) Type 2 diabetes mellitus: Problem details: -A1c 7.1 -Trulicity, glipizide. SSI, Accuchecks. -had previously been on Jardiance however patient self-discontinued after reading about unhealing wounds and amputations. Status: Acute (5) CKD (chronic kidney disease) stage 3, GFR 30-59 ml/min: Problem details: -creatinine 1.6-1.7-2.0-2.1 -hold lisinopril and HCTZ -renally dose antibiotics as discussed with pharmacy -500 mL NS bolus on 10/06 followed by gentle fluids overnight -creatinine improving, 1.2 this morning, BUN normalizing, continue to monitor Status: Acute (6) Hypertension: Problem details: -amlodipine 10 mg -lisinopril 40/hydrochlorothiazide 25 (hold 10/05) -will use hold parameter Status: Acute (7) MANINDER (obstructive sleep apnea): Problem details: -not compliant with CPAP Status: Acute (8) Hyperlipidemia: Problem details: -atorvastatin Status: Acute (9) Peripheral vascular disease: Status: Acute (10) Status post below-knee amputation of left lower extremity: Problem details: - utilizes prosthesis Status: Acute (11) Diabetic foot ulcer with osteomyelitis: Problem details: -to the OR 10/05/23 for debridement for evidence of gas gangrene and osteomyelitis -IV vanc and Zosyn started in the ED -on IV ceftriaxone and vancomycin and was switched to IV imipenem 500 mg q.6 hours while in hospital and at discharge begin IV meropenem 1 g IV q.8 hours and complete a full 6 week course of IV antibiotics for his osteomyelitis. Status: Acute Plan 1. Patient and are agreeable with above stated plans and recommendations. Met with and discussed recommendations in options with them for about 30 minutes today in addition to visiting with the patient and examining him and so forth. Time Spent With Patient Total time spent: 50 minutes Subjective Date Seen: 10/11/23 Interval history: Postoperative day 2 status post right 5th metatarsal amputation. Postoperative day 6 status post incision and drainage of gas gangrene in right foot. Hospital day 7 - 7th day of appropriate IV antibiotics, currently on ceftriaxone and vancomycin. Pain adequately managed today. Denies nausea or vomiting. Blood sugars adequately controlled at this time. Tolerating oral intake. Working with Physical and Occupational therapy to establish a safe discharge plan. Pathology of 5th metatarsal bone demonstrates osteomyelitis in the margins. Exam Narrative: Exam Narrative: Exam patient in his hospital room. Vision and hearing are grossly normal. Alert and oriented to self, place, time, situation. From the, articulate, cooperative. Lungs clear to auscultation. Heart tones with regular rhythm. Abdomen is obese with active bowel sounds, soft. Dr. Hoyt indicated not to remove dressing. I did not examine the patient's foot today. Const: Vital Signs, click to edit/add: Vital Signs - 24 hr 10/10/23 19:14 10/10/23 23:00 10/10/23 23:36 Temperature 98.9 F 98.8 F Pulse Rate [Pulse Oximeter] 62 Respiratory Rate 16 18 18 Blood Pressure [Ri ght Arm] 143/66 H 136/59 L Pulse Oximetry 96 94 Oxygen Delivery Me thod Room Air Room Air 10/11/23 03:00 10/11/23 06:21 10/11/23 08:24 Temperature 98.3 F 98.2 F Pulse Rate [Pulse Oximeter] 56 L 59 L Respiratory Rate 18 18 18 Blood Pressure [Ri ght Arm] 145/93 H 143/64 H Pulse Oximetry 94 93 Oxygen Delivery Me thod Room Air Room Air 10/11/23 12:35 10/11/23 15:31 Temperature 98.4 F 98 F Pulse Rate [Pulse Oximeter] 56 L 62 Respiratory Rate 20 62 H Blood Pressure [Ri ght Arm] 128/58 L 136/55 L Pulse Oximetry 95 93 Oxygen Delivery Me thod Room Air Room Air Labs Labs: Laboratory Results - last 24 hr 10/11/23 05:57 WBC 9.49 RBC 3.95 L Hgb 11.7 L Hct 37.1 MCV 94 MCH 30 MCHC 32 Plt Count 264 Sodium 137 Potassium 4.9 Chloride 109 Carbon Dioxide 23 Anion Gap 5 L BUN 26 Creatinine 1.2 Estimated Creat Clear 60.96 Estimated GFR 68 Glucose 101 Calcium 9.2
--- NOTE | 2023-10-11 16:42 | PC.SOCIAL ---
Addendum entered by AYAKA Lyles 10/11/23 17:02: List of In-network facilities provided by insurance were: 1. [facility] 2. [facility] 3. [facility] 4. [facility] 5. [facility] 6. [facility] 7. [facility] Original Note: Discharge planning: Met with pt and in room regarding discharge plan early this morning and multiple times throughout the day. Pt and are requesting snf placement while pt is needing IV abx, which is expected to be five weeks. Per MD, current antibiotic is Meropenum 1 gram, every 8 hours by IV. Provided written information on senior care facilities in the area to pt and with [employer] if [employer] and where to locate these ratings included in the written information. They are requesting placement in an in-network facility with their insurance, [facility]. Pt and requested social media marketing specialist look for placement at [facility], [place], [place], [place] and [place] (where pt had been previously). She refuses placement at [facility] [place]. informed social media marketing specialist that pt uses Trulicity which is an injected expensive medication once a week on Sundays. She would be willing to bring this into a facility for use if allowed. fur floor worker contacted the following facilities with the listed results: 1. [facility] - Evaluated pt and declined admission due to cost of Abx and other medication. 2. [facility] - called and faxed and awaiting call back on availability. 3. [facility] - Evaluating information sent and awaiting call back with decision on admit. 4. [facility] - not contracted with insurance. 5. [place] - no availability this week. Can contact again on Sunday if still looking for placement, . Utilization review was able to obtain a list of in-network providers. fur floor worker to continue to work with pt and to locate a facility for placement.
--- NOTE | 2023-10-11 17:45 | PC.NURSE ---
Shift Summary 15-19: Patient pleasant and cooperative. Has been in bed for shift, able to turn and reposition self as needed. Vitals stable and WNL. Rates pain 6/10 at start of shift, given PRN medication see SEP, patient reports relief. Still awaiting PICC placement this evening.
[2023-10-12] VITALS (7 sets, daily range): BP systolic 118–139; BP diastolic 56–64; PULSE 57–67; RESP 17–20; TEMP 36.7–37.3; O2SAT 92–96
--- NOTE | 2023-10-12 | XR_ITS ---
Patient: PORTER ARZATE Facility:?[facility] Patient ID:?[id number] Site Patient ID:?[id number]. Site :?[id number] Study:?XRay-Chest 1V-10/12/2023 10:18:23 AM Ordering Physician:?DR. PAREKH Final Report: INDICATION: PICC line TECHNIQUE: 1 view chest radiograph COMPARISON: None. FINDINGS: Devices: The right arm PICC distal tip is seen at least to the level of the superior cavoatrial junction but could extend beyond that level. The mid to lower chest is significantly obscured by the patient`s abdomen. Lung volumes are moderate. No focal or diffuse opacities. No pleural effusion. No pneumothorax. Heart size is difficult to evaluate. IMPRESSION: Right arm PICC as above. Difficult to evaluate given the patient`s abdomen. Consider performing an upright non-portable chest radiograph if possible. Dictated by Delfina Garza MD @ 10/12/2023 10:27:01 AM Signed by:?Delfina Garza MD @10/12/2023 10:27:01 AM (Electronic Signature)
[2023-10-12] MEDS: MENTHOL 57 GM GEL 1 APPLIC TOPICAL (00:12)
[2023-10-12] MEDS: OXYCODONE 5 MG TABLET PO ×3 (05:22→21:39)
[2023-10-12] MEDS: ACETAMINOPHEN 325 MG TABLET PO (05:22)
[2023-10-12] MEDS: PIPERACILLIN/TAZOBACTAM 3.375 GM in 0.9 % SODIUM CHLORIDE Mini-bag 100 ML IVPB ×2 (05:34→11:28)
[2023-10-12 06:38] LABS: Hematocrit 35.9 % (37.0-53.0); Hemoglobin* 11.3 gm/dL (13.5-17.5); Mean Corpuscular HGB Conc 32 gm/dL (32-36); Mean Corpuscular Hemoglobin 30 pg (26-34); Mean Corpuscular Volume 95 fL (80-100); Platelet Count* 263 K/uL (140-440); White Blood Count* 10.39 K/uL (4.50-11.00)
[2023-10-12 06:41] LABS: Slide Review Reflex No
--- NOTE | 2023-10-12 06:58 | PC.NURSE ---
End of shift [id number]: A&O pleasant and cooperative. VSS w/ sats >90% on RA. Rating pain in right foot 4-02/05. See eMAR for interventions.?Dressing to right foot c/d/i. CMS intact. Non weight bearing per orders. After antibiotic administration at 2300 pt reports itchiness on back and right inner leg. Blotchy red areas noted on shoulders and inner leg. No other symptoms noted. updated. See new orders. Blood sugar at 0400 was 54. Pt asymptomatic. Snacks given. Last recheck blood sugar 130. updated.
[2023-10-12 07:01] LABS: Chloride* 107 mmol/L (96-114); Sodium* 137 mmol/L (135-149)
[2023-10-12 07:04] LABS: Anion Gap 4 mEq/L (7-15); Blood Urea Nitrogen* 25 mg/dL (7-30); Carbon Dioxide* 26 mmol/L (20-32); Creatinine* 1.3 mg/dL (0.5-1.5); Est. Creatinine Clearance* 56.27; Estimated Glomerular Filt Rate 62 ml/min; Glucose* 146 mg/dL (60-115)
[2023-10-12] MEDS: SODIUM CHLORIDE 0.9 % (FLUSH) 10 ML SYRINGE 5 ML IVF (10:31)
[2023-10-12] MEDS: diphenhydrAMINE 50 MG/ML inj 25 MG IVP (10:31)
[2023-10-12] MEDS: ATORVASTATIN 10 MG TABLET 20 MG PO (10:33)
[2023-10-12] MEDS: lisinopriL 20 MG TABLET 40 MG PO (10:33)
[2023-10-12] MEDS: hydroCHLOROthiazide 25 MG TABLET PO (10:34)
[2023-10-12] MEDS: glipiZIDE XL 5 MG TAB 20 MG PO (10:34)
[2023-10-12] MEDS: AMLODIPINE 10 MG TABLET PO (10:34)
--- NOTE | 2023-10-12 10:44 | XR_ITS ---
Patient: PORTER ARZATE Facility:?[facility] Patient ID:?[id number] Site Patient ID:?[id number]. Site :?[id number] Study:?XRay-Chest 1V-10/12/2023 11:18:46 AM Ordering Physician:?DR. PAREKH Final Report: Indication: PICC placement Technique: Chest 1 view Comparison: 10/12/2023 Findings/Impression: Right arm PICC line is present in the right atrium, 6-7 cm beyond the cavoatrial junction. No pneumothorax. No infiltrate. Mediastinum normal. Dictated by Ashu Oliva MD @ 10/12/2023 12:04:57 PM Signed by:?Ashu Oliva MD @10/12/2023 12:04:57 PM (Electronic Signature)
--- NOTE | 2023-10-12 12:55 | PC.SOCIAL ---
Addendum entered by KATIUSKA Murguia 10/12/23 16:51: Discharge planning: feed elevator worker met with pt and his to discuss transportation from the hospital to [facility] on Sunday. Pt would like to take non-emergent EMS. feed elevator worker explained the cost and both pt and his were okay with this. Pt's , Iqra Livingston, signed the transportation form and this worker gave it to the charge nurse, who will be here all weekend and will set-up transport on Sunday. Plan for transport time will be between 10-11am. feed elevator worker informed Daya at [facility] about the planned transportation time. Social work to follow-up as needed. Addendum entered by KATIUSKA Murguia 10/12/23 14:15: Discharge planning: Pt was accepted to [facility] for short-term rehab on Sunday. [facility] is running the prior authorization for insurance. Social work to follow-up as needed. Addendum entered by KATIUSKA Murguia 10/12/23 13:20: Discharge planning: feed elevator worker also met with pt and his to give them the update on the information that was listed in the previous note. Social work to follow-up as needed. Original Note: Discharge planning: feed elevator worker reached out to [facility] to notify them that the pt's IV Antibiotic changed overnight and asked if they could review the referral again. Pt had been declined yesterday at [facility] due to the cost of the IV Antibiotic that he was on. feed elevator worker also left messages with [facility] and [facility] to see if they had made a decision on the pt's referral yet. Social work to follow-up as needed.
[2023-10-12] MEDS: diphenhydrAMINE 25 MG CAPSULE PO (13:06)
--- NOTE | 2023-10-12 13:14 | PM.IMPN1 ---
Progress Note: A&P Assessment and plan (1) Gas gangrene: Problem details: As above Status: Acute (2) Cellulitis: Problem details: -small area on the right galicia that has outlined with early cellulitic changes - improving -continue vanc and ceftriaxone, renally dosed -BC/UC negative Status: Acute (3) Type 2 diabetes mellitus: Problem details: -A1c 7.1 -Trulicity, glipizide. SSI, Accuchecks. If he does go to senior care we may need to hold the Trulicity if the senior care will not pay for this. -had previously been on Jardiance however patient self-discontinued after reading about unhealing wounds and amputations. Status: Acute (4) CKD (chronic kidney disease) stage 3, GFR 30-59 ml/min: Problem details: -creatinine 1.6-1.7-2.0-2.1 -hold lisinopril and HCTZ -renally dose antibiotics as discussed with pharmacy -500 mL NS bolus on 10/06 followed by gentle fluids overnight -creatinine improving, 1.2 this morning, BUN normalizing, continue to monitor Status: Acute (5) Hypertension: Problem details: -amlodipine 10 mg -lisinopril 40/hydrochlorothiazide 25 (hold 10/05) -will use hold parameter Status: Acute (6) MANINDER (obstructive sleep apnea): Problem details: -not compliant with CPAP Status: Acute (7) Hyperlipidemia: Problem details: -atorvastatin Status: Acute (8) Peripheral vascular disease: Status: Acute (9) Status post below-knee amputation of left lower extremity: Problem details: - utilizes prosthesis Status: Acute (10) Diabetic foot ulcer with osteomyelitis: Problem details: -to the OR 10/05/23 for debridement for evidence of gas gangrene and osteomyelitis -IV vanc and Zosyn started in the ED -on IV ceftriaxone and vancomycin and was switched to IV imipenem 500 mg q.6 hours while in hospital and at discharge begin IV meropenem 1 g IV q.8 hours and complete a full 6 week course of IV antibiotics for his osteomyelitis. Status: Acute (11) Drug-induced hypersensitivity reaction: Problem details: - 10/11/2023, pruritic maculopapular exanthem from imipenem/cilastatin, which has since been discontinued. - diphenhydramine PRN Status: Acute Plan 1. Reviewed impression and plan with patient and . 2. Answered their questions. 3. Awaiting retirement facility availability, which our mental health social worker staff are working on. Tentative plan is for patient to receive services in a retirement facility temporarily in regard to his wound care, 4 times daily IV antibiotic administration, physical and occupational therapy to help increase his strength, stamina, and confidence in regard to caring for himself safely in his home. In time he would like to be in his home and complete 6 week course of IV antibiotic therapy in his home, possibly in combination with outpatient IV infusion center support. He is working with the [facility] to consider the possibility of hyperbaric oxygen therapy. Patient needs consultation in regard to the same as well as insurance authorization. 4. Continue with current supportive efforts. 5. Patient and are agreeable with above stated plans and recommendations. Subjective Date Seen: 10/12/23 Interval history: - Postoperative day 3 status post right 5th metatarsal amputation. - Postoperative day 7 status post incision and drainage of gas gangrene in right foot. - Hospital day 8: trying to establish safe and appropriate discharge disposition plan as we continue to treat the osteomyelitis. - 8th day/6wks of appropriate IV antibiotics, currently on piperacillin/tazobactam x 2 doses, started today. On 12/11/2023 he was started on imipenem/cilastatin x 2 doses, but this was stopped 10/12/2023 due to hypersensitivity reaction with itching and maculopapular exanthem involving face, neck, chest, back, arms. Was on vancomycin and ceftriaxone for 4 days. Previously was on piperacillin/tazobactam and vancomycin. Pain adequately managed today. Denies nausea or vomiting. Tolerating oral intake. Blood sugars continue to be low in the mornings and adequately controlled throughout the remainder of the day and night. Working with Physical and Occupational therapy to establish a safe discharge plan. Report of pathology of 5th metatarsal bone came out 10/11/2023, demonstrates osteomyelitis in the margins, hence ID recommendation for 6 weeks total of IV antibiotics. Exam Narrative: Exam Narrative: I examined patient in his hospital room. Appears comfortable and in no acute distress. Vision and hearing are adequate. Alert and oriented to self, place, time, situation. Somber disposition. Friendly, articulate, cooperative. Maculopapular exanthem on face, neck, chest, back, arms. Spares conjunctiva, buccal mucosa, and palms. Lungs are clear to auscultation without wheezing, rhonchi, rales. Chest wall excursions are full. Heart tones with regular rhythm with normal S1-S2, no murmur, gallop, rub. Abdomen is obese with active bowel sounds, soft, nontender. I do not examine the wound today. When speaking with Dr. Hoyt, emergency vehicle technician, yesterday, he indicated that a dressing change would be undertaken on a later date. PICC line is placed. Initial placement 6-7 cm to deep. The tip of the catheter is pulled back 6 cm. Const: Vital Signs, click to edit/add: Vital Signs - 24 hr 10/11/23 15:31 10/11/23 19:25 10/11/23 22:47 Temperature 98 F 98.5 F 98.8 F Pulse Rate [Pulse Oximeter] 62 60 60 Respiratory Rate 62 H 16 16 Blood Pressure [Le ft Arm] Blood Pressure [Ri ght Arm] 136/55 L 127/59 L 134/63 Pulse Oximetry 93 95 96 Oxygen Delivery Me thod Room Air Room Air Room Air 10/11/23 23:30 10/12/23 04:31 10/12/23 09:59 Temperature 99.1 F Pulse Rate [Pulse Oximeter] 57 L Respiratory Rate 16 18 20 Blood Pressure [Le ft Arm] 136/62 Blood Pressure [Ri ght Arm] Pulse Oximetry 93 Oxygen Delivery Me thod Room Air 10/12/23 13:06 Temperature 98.3 F Pulse Rate [Pulse Oximeter] 58 L Respiratory Rate Blood Pressure [Le ft Arm] 118/56 L Blood Pressure [Ri ght Arm] Pulse Oximetry 96 Oxygen Delivery Me thod Labs Labs: Laboratory Results - last 24 hr 10/12/23 06:00 WBC 10.39 RBC 3.80 L Hgb 11.3 L Hct 35.9 L MCV 95 MCH 30 MCHC 32 Plt Count 263 Sodium 137 Potassium 5.0 Chloride 107 Carbon Dioxide 26 Anion Gap 4 L BUN 25 Creatinine 1.3 Estimated Creat Clear 56.27 Estimated GFR 62 Glucose 146 H Calcium 9.0 Imaging Chest x-ray: Attestation: I have reviewed the pertinent imaging results. Radiologist's impression: Right arm PICC line is present in the right atrium, 6-7 cm beyond the cavoatrial junction. No pneumothorax. No infiltrate. Mediastinum normal.
[2023-10-12] MEDS: HEPARIN 500 UNIT/5 ML SYRINGE IVF ×3 (14:09→23:12)
[2023-10-12] MEDS: SODIUM CHLORIDE 0.9 % (FLUSH) 10 ML SYRINGE IVF ×2 (14:09→23:12)
[2023-10-12] MEDS: LACTOBACILLUS ACIDOPHILUS 1 TABLET 2 TAB PO (17:06)
[2023-10-12] MEDS: diphenhydrAMINE 25 MG CAPSULE 50 MG PO (17:13)
[2023-10-12] MEDS: METHYLPREDNISOLONE SOD SUCC 62.5 MG/ML (125) 125 MG IVP (17:31)
[2023-10-12] MEDS: FAMOTIDINE 20 MG TABLET PO ×2 (17:31→21:36)
--- NOTE | 2023-10-12 19:18 | PC.NURSE ---
End of shift [id number]: Assumed care of patient at 1400. Pt is A&O, VSS and afebrile. He is SBA pivoting to BSC using 2ww. Pt utilizes urinal at bedside independently. Left BKA with prosthetic in place. NWB to RLE s/p I&D and 5th toe amputation. Pt had another medication reaction (possibly to IV Zosyn) this evening with c/o urticaria and widespread blisters on BLE and posterior shoulders as well as facial redness. MD rounded & ordered Pepcid BID and 1x dose of Solu-Medrol. IV Zosyn held at this time until MD can review IV abx alternatives. PO Benadryl increased from 25mg to 50mg q6H last given at 1710.? Blood glucose at supper time: 91 using patient?s [employer] ivan. RUE PICC heparin locked and C/D/I- dressing due to be changed tomorrow, 10/12. Discharge plan is to go to [facility] on Sunday for continued IV abx. ?
[2023-10-12] MEDS: INSULIN ASPART 100 UNIT/ML SUBCUT (21:31)
[2023-10-13] VITALS (8 sets, daily range): BP systolic 116–146; BP diastolic 60–69; PULSE 63–77; RESP 16–20; TEMP 36.4–36.6; O2SAT 92–97
[2023-10-13] MEDS: diphenhydrAMINE 25 MG CAPSULE 50 MG PO ×4 (00:35→22:59)
[2023-10-13] MEDS: diphenhydrAMINE 50 MG/ML inj IVP (04:48)
--- NOTE | 2023-10-13 06:08 | PC.NURSE ---
Patient pleasant, alert and oriented. Remained in bed. Was given PRN Benadryl 50mg PO at 0035 for itching and rash. Patient reported teriible?itching at approximately 0435. Rash/hives noted to have increased to upper chest, arms, back and legs. [facility] called and new orders given from Dr Murray for one time Benadryl 50mg IVP. Patient reported some relief afterwards.?
[2023-10-13] MEDS: LACTOBACILLUS ACIDOPHILUS 1 TABLET 2 TAB PO ×3 (08:19→17:16)
[2023-10-13] MEDS: glipiZIDE XL 5 MG TAB 20 MG PO (08:19)
[2023-10-13] MEDS: ATORVASTATIN 10 MG TABLET 20 MG PO (08:19)
[2023-10-13] MEDS: AMLODIPINE 10 MG TABLET PO (08:20)
[2023-10-13] MEDS: lisinopriL 20 MG TABLET 40 MG PO (08:20)
[2023-10-13] MEDS: FAMOTIDINE 20 MG TABLET PO ×2 (08:21→20:38)
[2023-10-13] MEDS: hydroCHLOROthiazide 25 MG TABLET PO (08:22)
[2023-10-13] MEDS: INSULIN ASPART 100 UNIT/ML SUBCUT ×4 (08:22→20:39)
[2023-10-13] MEDS: SODIUM CHLORIDE 0.9 % (FLUSH) 10 ML SYRINGE 5 ML IVF ×3 (08:23→20:41)
[2023-10-13] MEDS: HEPARIN 500 UNIT/5 ML SYRINGE IVF ×4 (08:29→23:37)
[2023-10-13] MEDS: predniSONE 20 MG TABLET 40 MG PO (08:29)
[2023-10-13 09:05] LABS: Eosinophils Percent Auto 0.9 % (0.0-7.0); Hematocrit 34.8 % (37.0-53.0); Hemoglobin* 11.1 gm/dL (13.5-17.5); Immature Granulocytes Pct Auto 0.5 %; Lymphocytes Percent Auto 4.4 % (20-44); Mean Corpuscular HGB Conc 32 gm/dL (32-36); Mean Corpuscular Hemoglobin 30 pg (26-34); Mean Corpuscular Volume 93 fL (80-100); Monocytes Percent Auto 2.3 % (0.0-11.0); Neutrophils Percent Auto 91.9 % (42.0-72.0); Platelet Count* 252 K/uL (140-440); RDW Coefficient of Variation % 12.7 % (11.5-15.5); Red Blood Count 3.73 m/uL (4.30-5.90); White Blood Count* 15.54 K/uL (4.50-11.00)
[2023-10-13 09:15] LABS: Slide Review Reflex No
[2023-10-13 09:19] LABS: Albumin* 3.3 g/dL (3.3-5.0); Chloride* 109 mmol/L (96-114); Sodium* 137 mmol/L (135-149)
[2023-10-13 09:21] LABS: Creatinine* 1.4 mg/dL (0.5-1.5); Est. Creatinine Clearance* 52.25; Estimated Glomerular Filt Rate 56 ml/min
[2023-10-13 09:22] LABS: Alanine Aminotransferase* 69 U/L (4-50); Alkaline Phosphatase* 66 U/L (40-150); Anion Gap 9 mEq/L (7-15); Aspartate Amino Transferase* 35 U/L (12-35); Bilirubin Total* 0.6 mg/dL (0.1-1.5); Blood Urea Nitrogen* 34 mg/dL (7-30); Calcium* 8.7 mg/dL (8.4-10.6); Carbon Dioxide* 19 mmol/L (20-32); Glucose* 254 mg/dL (60-115); Total Protein* 6.5 g/dL (6.0-8.3)
[2023-10-13] MEDS: ACETAMINOPHEN 325 MG TABLET PO ×2 (10:13→22:59)
[2023-10-13] MEDS: OXYCODONE 5 MG TABLET PO ×3 (10:14→22:59)
[2023-10-13] MEDS: PIPERACILLIN/TAZOBACTAM 3.375 GM in 0.9 % SODIUM CHLORIDE Mini-bag 100 ML IVPB ×3 (11:22→22:54)
--- NOTE | 2023-10-13 12:27 | PM.IMPN1 ---
Progress Note: A&P Assessment and plan (1) Drug-induced hypersensitivity reaction: Problem details: - 10/11/2023, pruritic maculopapular exanthem from imipenem/cilastatin, which has since been discontinued. - diphenhydramine PRN, pepcid, prednisone for 3-5 days. Will need monitoring and treatment for hyperglycemia while on prednisone. Status: Acute (2) Gas gangrene: Problem details: As below Status: Acute (3) Cellulitis: Problem details: -small area on the right glaicia that has outlined with early cellulitic changes - improving -continue zosyn for enterobacter and enterococcus. -BC/UC negative Status: Acute (4) Diabetic foot ulcer with osteomyelitis: Problem details: -to the OR 10/05/23 for debridement for evidence of gas gangrene and osteomyelitis -Complete a full 6 week course of IV antibiotics for his osteomyelitis. Status: Acute (5) Type 2 diabetes mellitus: Problem details: -A1c 7.1 -Trulicity, glipizide. SSI, Accuchecks. If he does go to senior living we may need to hold the Trulicity if the senior living will not pay for this. -had previously been on Jardiance however patient self-discontinued after reading about unhealing wounds and amputations. - Since he will be on prednisone for a few days, I will start levemir. Continue ISS ACHS. Status: Acute (6) CKD (chronic kidney disease) stage 3, GFR 30-59 ml/min: Problem details: -creatinine 1.6-1.7-2.0-2.1 -hold lisinopril and HCTZ -renally dose antibiotics as discussed with pharmacy -500 mL NS bolus on 10/06 followed by gentle fluids overnight -creatinine improving, 1.2 this morning, BUN normalizing, continue to monitor Status: Acute (7) Hypertension: Problem details: -amlodipine 10 mg -lisinopril 40/hydrochlorothiazide 25 (hold 10/05) -will use hold parameter Status: Acute (8) MANINDER (obstructive sleep apnea): Problem details: -not compliant with CPAP Status: Chronic (9) Hyperlipidemia: Problem details: -atorvastatin Status: Chronic (10) Peripheral vascular disease: Status: Chronic (11) Status post below-knee amputation of left lower extremity: Problem details: - utilizes prosthesis Status: Chronic Plan Was scheduled to go to on Sunday with IV zosyn for 6 weeks total. I think drug reaction is likely secondary to imipenem and will restart zosyn to cover enterococcus and enterobacter. Stop all other antibiotics. Monitor. If not able to tolerate zosyn, may need ID consult (tele ID not available this weekend). He is working with the [facility] to consider the possibility of hyperbaric oxygen therapy. Patient needs consultation in regard to the same as well as insurance authorization. Time Spent With Patient Total time spent: Today I spent 45 minutes rounding on the patient. Greater than 50% included discussing care with the patient and his , our pharmacist, team, reviewing data, medications, updating and managing the care plan. Subjective Time Seen by Provider: 08:21 Date Seen: 10/13/23 Interval history: Joey was started on Imipenem (last dose 10/10 at 22:40) to treat enterobacter and enterococcus cellulitis/gas gangrene, but had a drug rash develop 10/12/23 for which he was then switched to zosyn. Unfortunately his rash and pruritis worsened last night after the second dose of zosyn, so that was stopped and he was started on pepcid and given one dose of solumedrol. Despite getting benadryl, he continues to be very pruritic this morning. In lieu of zosyn, he was started on vancomycin last night. It appears to me that this does not cover enterobacter. I discussed this with the patient (in person) and his , Iqra (who was on speakerphone), this morning. He denies CP, SOB, sore throat or swelling. His is concerned about using prednisone because she has had side effects from using it for Crohns. Exam Narrative: Exam Narrative: General: Pruritic. Flushed. Awake, alert, oriented x3. No jaundice. Oropharynx: Clear. Mucous membranes moist. Cardiovascular: Regular rate and rhythm. No murmurs, gallops, or rubs. Respiratory: Clear to auscultation bilaterally. No wheezes or crackles. Abdomen: Bowel sounds present. Profound abdominal obesity. Soft, nontender. Skin: Maculopapular rash worst on face, neck, upper chest, upper back also with exanthem on upper arms and legs, consistent with drug rash. Spares periorbital skin, buccal mucosa, and palms. Extremities: Right foot is bandaged. Well-healed left BKA. Const: Vital Signs, click to edit/add: Vital Signs - 24 hr 10/12/23 13:06 10/12/23 15:00 10/12/23 15:00 Temperature 98.3 F 98.1 F Pulse Rate [Pulse Oximeter] 58 L 63 63 Respiratory Rate 20 20 Blood Pressure [Le ft Arm] 118/56 L Blood Pressure [Ri ght Arm] 129/64 Pulse Oximetry 96 95 Oxygen Delivery Me thod Room Air 10/12/23 19:40 10/12/23 23:00 10/12/23 23:30 Temperature 98.3 F 98.0 F Pulse Rate [Pulse Oximeter] 63 67 Respiratory Rate 20 17 17 Blood Pressure [Le ft Arm] 139/64 139/60 Blood Pressure [Ri ght Arm] Pulse Oximetry 95 92 Oxygen Delivery Me thod Room Air Room Air 10/13/23 03:00 10/13/23 07:00 10/13/23 07:00 Temperature 97.5 F L 97.5 F L Pulse Rate [Pulse Oximeter] 77 69 69 Respiratory Rate 20 18 18 Blood Pressure [Le ft Arm] 116/67 135/60 Blood Pressure [Ri ght Arm] Pulse Oximetry 92 97 Oxygen Delivery Me thod Room Air Room Air 10/13/23 11:00 Temperature 97.6 F Pulse Rate [Pulse Oximeter] 63 Respiratory Rate 18 Blood Pressure [Le ft Arm] 130/64 Blood Pressure [Ri ght Arm] Pulse Oximetry 96 Oxygen Delivery Me thod Room Air Labs Labs: Laboratory Results - last 24 hr 10/13/23 08:53 WBC 15.54 H RBC 3.73 L Hgb 11.1 L Hct 34.8 L MCV 93 MCH 30 MCHC 32 RDW Coeff of Kushal 12.7 Plt Count 252 Neut % (Auto) 91.9 H Lymph % (Auto) 4.4 L [place] % (Auto) 2.3 Eos % (Auto) 0.9 Baso % (Auto) 0.0 Neut # (Auto) 14.30 H Lymph # (Auto) 0.70 L [place] # (Auto) 0.40 Eos # (Auto) 0.10 Baso # (Auto) 0.00 Abs Immat Gran (auto) 0.10 Imm/Tot Granulo (auto) 0.5 Sodium 137 Potassium 5.0 Chloride 109 Carbon Dioxide 19 L Anion Gap 9 BUN 34 H Creatinine 1.4 Estimated Creat Clear 52.25 Estimated GFR 56 Glucose 254 H Calcium 8.7 Total Bilirubin 0.6 AST 35 ALT 69 H Alkaline Phosphatase 66 Total Protein 6.5 Albumin 3.3
[2023-10-13] MEDS: 0.9 % SODIUM CHLORIDE 250 ml IV (17:18)
[2023-10-13] MEDS: SODIUM CHLORIDE 0.9 % (FLUSH) 10 ML SYRINGE IVF (17:18)
--- NOTE | 2023-10-13 18:29 | PC.NURSE ---
End of Shift: Patient pleasant and cooperative. Afebrile. Rating pain in right foot and back 3-6/10 and PRN Oxycodone given x2. Dressing to right foot C/D/I. Pivot transfer to BSC, NWB to right lower extremity. Continues to have rash/itching to trunk, arms/legs and face reddened, in to see pt. PRN Benadryl given x2. States some improvement throughout the day. Dressing to PICC in right upper extremity changed, measurements 10 cm from site to hub (previous 6cm) and arm circumference 40 cm (previous 38cm), updated and OK to continue to use.
[2023-10-14] VITALS (9 sets, daily range): BP systolic 117–151; BP diastolic 56–73; PULSE 57–69; RESP 16–20; TEMP 36.4–36.9; O2SAT 94–97
[2023-10-14] MEDS: SODIUM CHLORIDE 0.9 % (FLUSH) 10 ML SYRINGE IVF ×4 (03:06→18:25)
[2023-10-14] MEDS: PIPERACILLIN/TAZOBACTAM 3.375 GM in 0.9 % SODIUM CHLORIDE Mini-bag 100 ML IVPB ×4 (04:42→22:40)
[2023-10-14] MEDS: diphenhydrAMINE 25 MG CAPSULE 50 MG PO ×3 (04:44→20:36)
--- NOTE | 2023-10-14 05:28 | PC.NURSE ---
Shift note: Pt continue to have itchy erythematous rash. Managed with cold compresses and Benadryl. Alert and oriented and able to make needs known. Dressing to the right leg appears clean and dry but the calf redness and swelling remained at the same level above the marked area. Pt has been in bed throughout the shift. Pain level has been rated between 3 and 6. Tylenol and Oxycodone were requested at 2300. Blood glucose at 2100 was 282 and insulin given per sliding scale.Except elevated systolic Bp, vitally stable.
[2023-10-14 07:01] LABS: Eosinophils Percent Auto 3.1 % (0.0-7.0); Hematocrit 32.8 % (37.0-53.0); Hemoglobin* 10.5 gm/dL (13.5-17.5); Immature Granulocytes Pct Auto 1.3 %; Lymphocytes Percent Auto 6.7 % (20-44); Mean Corpuscular HGB Conc 32 gm/dL (32-36); Mean Corpuscular Hemoglobin 30 pg (26-34); Mean Corpuscular Volume 94 fL (80-100); Monocytes Percent Auto 4.1 % (0.0-11.0); Neutrophils Percent Auto 84.8 % (42.0-72.0); Platelet Count* 249 K/uL (140-440); Red Blood Count 3.49 m/uL (4.30-5.90)
[2023-10-14 07:04] LABS: Slide Review Reflex No
[2023-10-14] MEDS: predniSONE 20 MG TABLET 40 MG PO (08:17)
[2023-10-14] MEDS: LACTOBACILLUS ACIDOPHILUS 1 TABLET 2 TAB PO ×3 (08:17→18:22)
[2023-10-14] MEDS: FAMOTIDINE 20 MG TABLET PO ×2 (08:17→20:55)
[2023-10-14] MEDS: AMLODIPINE 10 MG TABLET PO (08:28)
[2023-10-14] MEDS: ATORVASTATIN 10 MG TABLET 20 MG PO (08:28)
[2023-10-14] MEDS: glipiZIDE XL 5 MG TAB 20 MG PO (08:28)
[2023-10-14] MEDS: SODIUM CHLORIDE 0.9 % (FLUSH) 10 ML SYRINGE 5 ML IVF ×2 (08:29→22:41)
[2023-10-14] MEDS: hydroCHLOROthiazide 25 MG TABLET PO (08:29)
[2023-10-14] MEDS: lisinopriL 20 MG TABLET 40 MG PO (08:29)
[2023-10-14] MEDS: ACETAMINOPHEN 325 MG TABLET PO ×2 (08:30→20:58)
[2023-10-14] MEDS: OXYCODONE 5 MG TABLET PO ×3 (08:30→20:55)
--- NOTE | 2023-10-14 12:47 | PM.IMPN1 ---
Progress Note: A&P Assessment and plan (1) Drug-induced hypersensitivity reaction: Problem details: - 10/11/2023, pruritic maculopapular exanthem from imipenem/cilastatin, which has since been discontinued. - improving now despite being on Zosyn. I think this reaction was likely secondary to imipenem, which has been discontinued. I will schedule Pepcid, Zyrtec, and prednisone for the next 4 days. Status: Acute (2) Gas gangrene: Problem details: As below Status: Acute (3) Cellulitis: Problem details: -small area on the right galicia that has outlined with early cellulitic changes, unclear if this has worsened since it blossomed with the drug rash, but now appears to be improving again -continue zosyn for enterobacter and enterococcus. -BC/UC negative Status: Acute (4) Diabetic foot ulcer with osteomyelitis: Problem details: -to the OR 10/05/23 for debridement for evidence of gas gangrene and osteomyelitis -Complete a full 6 week course of IV antibiotics for his osteomyelitis. Status: Acute (5) Type 2 diabetes mellitus: Problem details: -A1c 7.1 -Trulicity, glipizide. SSI, Accuchecks. If he does go to senior care we may need to hold the Trulicity if the senior care will not pay for this. -had previously been on Jardiance however patient self-discontinued after reading about unhealing wounds and amputations. - Since he will be on prednisone for a few days, I have started levemir. Continue ISS ACHS. Goal blood glucoses are 140s to 180s. Status: Acute (6) CKD (chronic kidney disease) stage 3, GFR 30-59 ml/min: Problem details: -creatinine 1.6-1.7-2.0-2.1 -hold lisinopril and HCTZ -renally dose antibiotics as discussed with pharmacy -500 mL NS bolus on 10/06 followed by gentle fluids overnight -creatinine improving, 1.2 this morning, BUN normalizing, continue to monitor Status: Acute (7) Hypertension: Problem details: -amlodipine 10 mg -lisinopril 40/hydrochlorothiazide 25 (hold 10/05) -will use hold parameter Status: Acute (8) MANINDER (obstructive sleep apnea): Problem details: -not compliant with CPAP Status: Chronic (9) Hyperlipidemia: Problem details: -atorvastatin Status: Chronic (10) Peripheral vascular disease: Status: Chronic (11) Status post below-knee amputation of left lower extremity: Problem details: - utilizes prosthesis Status: Chronic Plan Was scheduled to go to [facility] on Sunday with IV zosyn for 6 weeks total. I think drug reaction is likely secondary to imipenem and have restarted zosyn to cover enterococcus and enterobacter. He is tolerating Zosyn and the drug rash is now improving. Anticipate he is on track to discharge tomorrow if the drug rash and cellulitis on his right galicia continue to improve. Time Spent With Patient Total time spent: Today I spent 40 minutes rounding on the patient. Greater than 50% included discussing care with the team, reviewing data, updating and managing the care plan. Subjective Time Seen by Provider: 07:48 Date Seen: 10/14/23 Interval history: Joey is feeling much better today. I had switched him back to Zosyn yesterday and he is tolerating this well without any worsening of his rash. He is chatty and joking with me this morning. He tells me he feels much better. He reached up to scratch only a handful of times during our conversation. I spoke with him for 15 minutes this morning and later spoke with his over the phone for 20 minutes. We discussed treating cellulitis, osteomyelitis, antibiotic choice, wound care, rehab, length of need for antibiotics and rehab, symptoms to monitor for, treatment of allergic reactions, prednisone, hyperglycemia,, diabetes and diabetic diet. Exam Narrative: Exam Narrative: General: Less pruritic. Much less flushed today. Awake, alert, oriented x3. No jaundice. Oropharynx: Clear. Mucous membranes moist. Cardiovascular: Regular rate and rhythm. No murmurs, gallops, or rubs. Respiratory: Clear to auscultation bilaterally. No wheezes or crackles. Skin: Maculopapular rash still present on neck and upper chest, but much improved on face, upper legs and arms, and back. Right anterolateral galicia has ready macro papular rash, longer bright red like it was yesterday, mild warmth at the very center otherwise no calor. No open area or drainage. Extremities: Right foot is bandaged. Well-healed left BKA. Const: Vital Signs, click to edit/add: Vital Signs - 24 hr 10/13/23 15:00 10/13/23 15:00 10/13/23 19:00 Temperature 97.7 F 97.8 F Pulse Rate [Pulse Oximeter] 63 71 69 Respiratory Rate 18 16 16 Blood Pressure [Le ft Arm] 141/61 H 140/62 H Pulse Oximetry 95 96 Oxygen Delivery Me thod Room Air Room Air 10/13/23 22:52 10/13/23 23:00 10/13/23 23:30 Temperature 97.8 F Pulse Rate [Pulse Oximeter] 64 64 Respiratory Rate 16 16 16 Blood Pressure [Le ft Arm] 146/69 H Pulse Oximetry 96 Oxygen Delivery Me thod Room Air 10/14/23 03:00 10/14/23 06:00 10/14/23 07:00 Temperature 97.5 F L 98.1 F Pulse Rate [Pulse Oximeter] 66 63 Respiratory Rate 16 16 16 Blood Pressure [Le ft Arm] 140/71 H 120/73 Pulse Oximetry 97 95 Oxygen Delivery Ne thod Room Air Room Air 10/14/23 11:00 Temperature 98.3 F Pulse Rate [Pulse Oximeter] 57 L Respiratory Rate 16 Blood Pressure [Le ft Arm] 117/56 L Pulse Oximetry 95 Oxygen Delivery Me thod Room Air Labs Labs: Laboratory Results - last 24 hr 10/14/23 06:40 WBC 15.70 H RBC 3.49 L Hgb 10.5 L Hct 32.8 L MCV 94 MCH 30 MCHC 32 RDW Coeff of Kushal 13.0 Plt Count 249 Neut % (Auto) 84.8 H Lymph % (Auto) 6.7 L [place] % (Auto) 4.1 Eos % (Auto) 3.1 Baso % (Auto) 0.0 Neut # (Auto) 13.30 H Lymph # (Auto) 1.10 [place] # (Auto) 0.60 Eos # (Auto) 0.50 Baso # (Auto) 0.00 Abs Immat Gran (auto) 0.20 Imm/Tot Granulo (auto) 1.3
[2023-10-14] MEDS: HEPARIN 500 UNIT/5 ML SYRINGE IVF ×3 (13:45→22:42)
[2023-10-14] MEDS: DULAGLUTIDE 3 MG/0.5 ML 3 EACH SUBCUT (14:32)
--- NOTE | 2023-10-14 15:54 | PC.NURSE ---
Addendum entered by Lucille Gale RN 10/14/23 16:07: Pt has PICC in right arm- heparin locked b/t abx. Not a PIV. Original Note: VSS, RA. Pain in right foot 3-6 throughout day- relieved w/ PRN oxy and tylenol x2. No c/o itching all day- did give one dose of benedryl per more spouse's request, pt did agree. Edema and redness in right leg- CMS intact. Tolerating regular diet- has not needed any SS insulin w/ meals today. Drinking well. Up to void x3, large BM x1. Up w/ SBA, walker- NWB on right foot w/ BKA of left leg. Using w/c to go long distances. PIV- SL'd b/t IV abx. Spouse here this afternoon. Will d/c to [facility] tomorrow via non-emergent transport. Did have wound clinic appointment at 1315 tomorrow, 10/13- email has been sent to wound care to see if they can come up before he leaves as needs to be at [facility] by 1400. Will continue to monitor, follow POC, and keep pt and famliy updated. Lucille Gale RN
[2023-10-14] MEDS: INSULIN ASPART 100 UNIT/ML SUBCUT ×2 (18:23→20:59)
--- NOTE | 2023-10-14 21:49 | PC.NURSE ---
[id number]: Patient pleasant and cooperative. Iqra at bedside and supportive. A1/walker. Dressing to R. foot C/D/I. PRN Oxycodone and Tylenol for pain management. Rash on body improving per patient. PICC intact. Eating and voiding.
[2023-10-15 02:50] VITALS: RESP 18
--- NOTE | 2023-10-15 04:15 | PC.NURSE ---
Pt rested well this night. Toes Wrapped CDI. Pain controlled. Afebrile. VS unremarkable. Pt was up earlier in shift walking halls with NWB to right foot.
[2023-10-15] MEDS: PIPERACILLIN/TAZOBACTAM 3.375 GM in 0.9 % SODIUM CHLORIDE Mini-bag 100 ML IVPB (05:07)
[2023-10-15] MEDS: SODIUM CHLORIDE 0.9 % (FLUSH) 10 ML SYRINGE 5 ML IVF (05:12)
[2023-10-15 05:18] VITALS: RESP 18
[2023-10-15] MEDS: HEPARIN 500 UNIT/5 ML SYRINGE IVF (05:46)
[2023-10-15] MEDS: SODIUM CHLORIDE 0.9 % (FLUSH) 10 ML SYRINGE IVF ×2 (05:47)
[2023-10-15 06:52] LABS: Chloride* 109 mmol/L (96-114); Potassium* 4.4 mmol/L (3.6-5.1); Sodium* 137 mmol/L (135-149)
[2023-10-15 06:55] LABS: Anion Gap 4 mEq/L (7-15); Blood Urea Nitrogen* 44 mg/dL (7-30); Carbon Dioxide* 24 mmol/L (20-32); Creatinine* 1.7 mg/dL (0.5-1.5); Est. Creatinine Clearance* 43.03; Estimated Glomerular Filt Rate 45 ml/min
[2023-10-15 06:56] LABS: Calcium* 8.6 mg/dL (8.4-10.6); Glucose* 141 mg/dL (60-115)
[2023-10-15 07:00] VITALS: BP 151/71; PULSE 57; RESP 20; TEMP 36.9; O2SAT 96
[2023-10-15 07:00] LABS: C Reactive Protein* < 0.5 mg/dL (0.5-1.0)
[2023-10-15 07:12] LABS: Basophils Percent Auto 0.1 % (0.0-3.0); Eosinophils Percent Auto 4.1 % (0.0-7.0); Hematocrit 31.5 % (37.0-53.0); Hemoglobin* 9.9 gm/dL (13.5-17.5); Immature Granulocytes Pct Auto 0.4 %; Lymphocytes Percent Auto 9.7 % (20-44); Mean Corpuscular HGB Conc 31 gm/dL (32-36); Mean Corpuscular Hemoglobin 30 pg (26-34); Mean Corpuscular Volume 95 fL (80-100); Monocytes Percent Auto 4.9 % (0.0-11.0); Neutrophils Percent Auto 80.8 % (42.0-72.0); Platelet Count* 228 K/uL (140-440); RDW Coefficient of Variation % 13.1 % (11.5-15.5); Red Blood Count 3.32 m/uL (4.30-5.90); White Blood Count* 12.77 K/uL (4.50-11.00)
[2023-10-15 07:13] LABS: Slide Review Reflex No
[2023-10-15] MEDS: ATORVASTATIN 10 MG TABLET 20 MG PO (07:48)
[2023-10-15] MEDS: AMLODIPINE 10 MG TABLET PO (07:49)
[2023-10-15] MEDS: predniSONE 20 MG TABLET 40 MG PO (07:49)
[2023-10-15] MEDS: FAMOTIDINE 20 MG TABLET PO (07:49)
[2023-10-15] MEDS: LACTOBACILLUS ACIDOPHILUS 1 TABLET 2 TAB PO (07:49)
[2023-10-15] MEDS: glipiZIDE XL 5 MG TAB 20 MG PO (07:50)
[2023-10-15] MEDS: CETIRIZINE HCL 10 MG TABLET PO (07:50)
--- NOTE | 2023-10-15 08:01 | PC.NURSE ---
Dr. Hoyt was in this am and changed his dressing
--- NOTE | 2023-10-15 08:54 | P.DS_ITS ---
DS: Providers Provider Time Seen by Provider: 08:00 Date Seen: 10/15/23 Date of admission: 10/05/23 15:07 Primary care physician: Wesley Prasad MD Admitting Clinician: Mary Beth Parekh MD Consults: 10/05/23 15:01 Consult to Occupational Therapy [CONS] Routine Comment: Reason(s) for OT Consult:: Evaluate and Treat Any Restrictions?:: No Restrictions Consult to Physical Therapy [CONS] Routine Comment: Reason(s) for PT Consult:: Evaluate and Treat Any Restrictions?:: No Restrictions Consult to Tour Conductor [CONS] Routine Comment: Reason for Consult:: Social Service Consult 10/05/23 17:08 Consult to Physical Therapy [CONS] Routine Comment: Reason(s) for PT Consult:: Unstable Gait Any Restrictions?:: See Comment Comment: possible non weight bearing 10/06/23 13:04 Consult to Physical Therapy [CONS] Routine Comment: start to work on NWB to the right Reason(s) for PT Consult:: Evaluate and Treat Any Restrictions?:: Non Wt Bearing Comment: will need to be as NWB as possible after surgery next week. please work with patient on this prior to planned surgery Sunday. currently heel WB for transfers 10/10/23 09:34 Consult to Physical Therapy [CONS] Routine Comment: Reason(s) for PT Consult:: Evaluate and Treat Any Restrictions?:: See Comment Comment: Non-weight bearing on right foot; left LE BKA, prosthesis 10/11/23 08:51 Consult to Infectious Diseases [CONS] Routine Comment: Consulting Provider: [facility] Consult priority: Routine Has provider been notified: No Call back required?: Yes Attending Physician on discharge: Nuris Adam MD Date of Discharge: 10/15/23 DS: Diagnosis Discharge Diagnosis (1) Drug-induced hypersensitivity reaction: Status: Acute Problem details: - 10/11/2023, pruritic maculopapular exanthem from imipenem/cilastatin, which has since been discontinued. - improving now despite being on Zosyn. I think this reaction was likely secondary to imipenem, which has been discontinued. He will be on scheduled Pepcid, Zyrtec, and prednisone for the next 3 days. (2) Cellulitis: Status: Acute Problem details: -small area on the right galicia that has outlined with early cellulitic changes, unclear if this has worsened since it blossomed with the drug rash, but now appears to be improving again -continue zosyn for enterobacter and enterococcus. -BC/UC negative (3) Gas gangrene: Status: Acute Problem details: As below (4) Diabetic foot ulcer with osteomyelitis: Status: Acute Problem details: -to the OR 10/05/23 for debridement for evidence of gas gangrene and osteomyelitis -Complete a full 6 week course of IV antibiotics for his osteomyelitis. (5) Peripheral vascular disease: Status: Chronic (6) Type 2 diabetes mellitus: Status: Acute Problem details: -A1c 7.1 -Trulicity, glipizide. SSI, Accuchecks. If he does go to long-term we may need to hold the Trulicity if the long-term will not pay for this. -had previously been on Jardiance however patient self-discontinued after reading about unhealing wounds and amputations. - Since he will be on prednisone for a few days, I have started levemir. Continue ISS ACHS. Goal blood glucoses are 140s to 180s. - Daytime sugars are elevated. Will increase morning dose of levemir (7) CKD (chronic kidney disease) stage 3, GFR 30-59 ml/min: Status: Chronic Problem details: -creatinine 1.6-1.7-2.0-2.1 -hold lisinopril and HCTZ -renally dose antibiotics as discussed with pharmacy -500 mL NS bolus on 10/06 followed by gentle fluids overnight -creatinine improving, 1.2 this morning, BUN normalizing, continue to monitor - 10/14 Cr 1.7 today. Likely related to zosyn. Will hold HCTZ and lisinopril today and recheck Cr Sunday at rehab. I have also spoken with pharmacy about a more continuous infusion of zoyn (q8h) and we will talk with [facility] to see if they can do that there. (8) Hypertension: Status: Acute Problem details: -amlodipine 10 mg -lisinopril 40/hydrochlorothiazide 25 (hold 10/14) -will use hold parameter (9) Hyperlipidemia: Status: Chronic Problem details: -atorvastatin (10) MANINDER (obstructive sleep apnea): Status: Chronic Problem details: -not compliant with CPAP (11) Status post below-knee amputation of left lower extremity: Status: Chronic Problem details: - utilizes prosthesis (12) Obesity: Status: Chronic (13) Acute kidney injury superimposed on CKD: Status: Acute DS: Summary Hospital Course Hospital Course: 63-year-old man with right diabetic foot ulcer, gas gangrene, osteomyelitis, status post incision and drainage 10/05/2023 and more debridement on 10/09/23. In discussions with Infectious Disease, he was started on imipenem for treatment of Enterococcus and Enterobacter however developed a drug reaction to this. He was switched to Zosyn and has done well over the weekend with that. He is discharging to [facility] today on 6 weeks of IV Zosyn for treatment of osteomyelitis of the right foot. He is getting 3 more days of prednisone, Zyrtec, and Pepcid for a pruritic drug rash that is improving. Also of note are several elevations in creatinine above his baseline during this hospital stay, likely partially secondary to Zosyn. I have held hydrochlorothiazide and lisinopril and he should ever recheck creatinine on Sunday. He is overall in stable and improved condition and ready for discharge to a [facility] facility today with IV Zosyn for 6 weeks and follow-up labs at appropriate intervals as below. Time Spent with Patient Time attestation: Total time spent providing and/or coordinating discharge services: Exam Narrative: Exam Narrative: General: Rash is about 10% of what it was on Sunday. It is mostly noticeable still on his anterior neck and upper chest. Awake, alert, oriented x3. No jaundice. Oropharynx: Clear. Mucous membranes moist. Cardiovascular: Regular rate and rhythm. No murmurs, gallops, or rubs. Respiratory: Clear to auscultation bilaterally. No wheezes or crackles. Skin: Maculopapular rash still present on neck and upper chest, but much improved on face, upper legs and arms, and back. Right anterolateral galicia has drew macro papular rash, improving, mild warmth at the very center otherwise no calor. No open area or drainage. Extremities: Right foot was read bandaged by Dr. Daisy france this morning. These are clean, dry, and intact. Well-healed left BKA. Const: Vital Signs, click to edit/add: Vital Signs - 24 hr 10/14/23 11:00 10/14/23 17:23 10/14/23 20:32 Temperature 98.3 F 97.9 F 97.5 F L Pulse Rate [Pulse Oximeter] 57 L 68 66 Respiratory Rate 16 20 18 Blood Pressure [Le ft Arm] 117/56 L 130/59 L 142/64 H Pulse Oximetry 95 94 95 Oxygen Delivery Me thod Room Air Room Air Room Air 10/14/23 22:50 10/14/23 22:53 10/14/23 23:26 Temperature 98.4 F Pulse Rate [Pulse Oximeter] 69 69 Respiratory Rate 18 18 18 Blood Pressure [Le ft Arm] 151/61 H Pulse Oximetry 96 Oxygen Delivery Me thod Room Air 10/15/23 02:50 10/15/23 05:18 10/15/23 07:00 Temperature 98.5 F Pulse Rate [Pulse Oximeter] 57 L Respiratory Rate 18 18 20 Blood Pressure [Le ft Arm] 151/71 H Pulse Oximetry 96 Oxygen Delivery Me thod Room Air 10/15/23 07:00 Temperature Pulse Rate [Pulse Oximeter] Respiratory Rate 20 Blood Pressure [Le ft Arm] Pulse Oximetry Oxygen Delivery Me thod DS: Data Data Completed and Pending Completed studies during hospitalization: 10/05/2023 EKG: Normal sinus rhythm, 70 beats per minute. Normal EKG. Study: XRay-Extremity Right FOOT-10/05/2023 12:48:44 PM Ordering Physician: CHILANGO Final Report: Indication: Right foot ulcer at 5th MTP. Eval for osteo Technique: Two views of the right foot Comparison: None Findings: No acute fracture or malalignment. There is some degenerative changes throughout the interphalangeal joints and midfoot. Prominent calcaneal enthesophytes. Soft tissue ulcer seen along the lateral aspect of the 5th MTP joint with regional osteopenia/lysis and cortical erosion of the 5th metatarsal head. There is soft tissue edema and subcutaneous emphysema seen in the soft tissues along the 5th metatarsal. Prominent vascular calcifications. Impression: 1. Soft tissue ulcer along the lateral aspect of the 5th MTP joint with radiographic findings suggestive of underlying osteomyelitis of the 5th metatarsal head. 2. Soft tissue edema and subcutaneous emphysema seen in the soft tissues along the 5th metatarsal Dictated by Dm Cox MD @ 10/05/2023 1:04:53 PM Signed by: Dm Cox MD @10/05/2023 1:04:53 PM (Electronic Signature) Dictated By: Dm Cox M.D. Signed By: 10/05/23 1320 DD/ 1304 TD/TT: 10/05/23 1320 Study: XRay-Chest 1V-10/12/2023 10:18:23 AM Ordering Physician: DR. PAREKH Final Report: INDICATION: PICC line TECHNIQUE: 1 view chest radiograph COMPARISON: None. FINDINGS: Devices: The right arm PICC distal tip is seen at least to the level of the superior cavoatrial junction but could extend beyond that level. The mid to lower chest is significantly obscured by the patient`s abdomen. Lung volumes are moderate. No focal or diffuse opacities. No pleural effusion. No pneumothorax. Heart size is difficult to evaluate. IMPRESSION: Right arm PICC as above. Difficult to evaluate given the patient`s abdomen. Consider performing an upright non-portable chest radiograph if possible. Dictated by Delfina Garza MD @ 10/12/2023 10:27:01 AM Signed by: Delfina Garza MD @10/12/2023 10:27:01 AM (Electronic Signature) Dictated By: Delfina Garza M.D. Signed By: 10/12/23 1040 DD/ 1027 TD/TT: 10/12/23 1040 Study: XRay-Chest 1V-10/12/2023 11:18:46 AM Ordering Physician: DR. PAREKH Final Report: Indication: PICC placement Technique: Chest 1 view Comparison: 10/12/2023 Findings/Impression: Right arm PICC line is present in the right atrium, 6-7 cm beyond the cavoatrial junction. No pneumothorax. No infiltrate. Mediastinum normal. Dictated by Ashu Oliva MD @ 10/12/2023 12:04:57 PM Signed by: Ashu Oliva MD @10/12/2023 12:04:57 PM (Electronic Signature) Dictated By: Ashu Oliva M.D. Signed By: 10/12/23 1302 DD/ 1204 TD/TT: 10/12/23 1301 Labs on day of discharge: Labs from last 24 hours 10/15/23 05:55 WBC 12.77 H RBC 3.32 L Hgb 9.9 L Hct 31.5 L MCV 95 MCH 30 MCHC 31 L RDW Coeff of Kushal 13.1 Plt Count 228 Neut % (Auto) 80.8 H Lymph % (Auto) 9.7 L [place] % (Auto) 4.9 Eos % (Auto) 4.1 Baso % (Auto) 0.1 Neut # (Auto) 10.30 H Lymph # (Auto) 1.20 [place] # (Auto) 0.60 Eos # (Auto) 0.50 Baso # (Auto) 0.00 Abs Immat Gran (auto) 0.10 Imm/Tot Granulo (auto) 0.4 Sodium 137 Potassium 4.4 Chloride 109 Carbon Dioxide 24 Anion Gap 4 L BUN 44 H Creatinine 1.7 H Estimated Creat Clear 43.03 Estimated GFR 45 Glucose 141 H Calcium 8.6 C-Reactive Protein < 0.5 L Discharge Plan Discharge Disposition: [facility] Date of Admission: 10/05/23 15:07 Attending Provider on Discharge: Nuris Adam Consulting Providers: Janice House; Bahman Alcantara; Genoveva Reno; Parish Travis; Jarrett Lao; Shannon Barrera; Rosie Pitts; Karuna Kent Primary Care Provider: Wesley Prasad Condition: Improved Anticipated Discharge Date/Time: 10/15/23 10:00 Discharge Medications: New Zosyn in dextrose (iso-osm) 3.375 gram/50 mL piggyback 3.375 g IV Q6H 42 Days piperacillin-tazobactam 3.375 gram Recon Soln 3.375 g IVPB Q6H 42 Days Qty: 168 0RF cetirizine 10 mg Tablet 10 mg PO DAILY Qty: 4 0RF famotidine [Acid Wire Winding Machine Tender (famotidine)] 20 mg Tablet 20 mg PO BID Qty: 8 0RF insulin aspart U-100 100 unit/mL (3 mL) Insulin Pen See Rx Instructions .ROUTE .COMPLEX Qty: 15 0RF Rx Instructions: Blood Glucose 150 or less No coverage Blood Glucose 151-200 1 unit Blood Glucose 201-250 2 units Blood Glucose 251-300 3 units Blood Glucose 301-350 4 units Blood Glucose 351 to 400 5 units Blood Glucose 401 and greater 6 units and recheck in 2 hours Levemir FlexPen 100 unit/mL (3 mL) Insulin Pen 5 unit subcut HS Qty: 15 0RF Levemir FlexPen 100 unit/mL (3 mL) insulin pen 10 unit subcut DAILY Qty: 15 0RF prednisone 20 mg Tablet 40 mg PO DAILYWM 3 Days Qty: 6 0RF oxycodone 5 mg Tablet 5 mg PO Q4H PRNQty: 30 0RF BenGay Vanishing Scent 2.5 % Gel 1 applic topical Q6H Qty: 15 0RF Lactobacillus acidophilus 0.5 mg (100 million cell) Tablet 100 mmu cells PO TIDWM Qty: 180 0RF Continued glipizide 10 mg tablet extended release 24hr 20 mg PO DAILY amlodipine 10 mg tablet 10 mg PO DAILY atorvastatin 20 mg tablet 20 mg PO DAILY Held lisinopril 20 mg tablet 20 mg PO DAILY Hold Instructions: Resume on 10/18/23. aspirin 81 mg tablet,delayed release (DR/EC) 81 mg PO DAILY Hold Instructions: Resume on 10/23/23. lisinopril-hydrochlorothiazide 20-25 mg tablet 1 tab PO DAILY Hold Instructions: Resume on 10/18/23. Discontinued Jardiance 25 mg tablet 25 mg PO DAILY Hold Instructions: pt decision Trulicity 3 mg/0.5 mL pen injector 3 mg subcut Q7D Discharge Orders: Discharge Order (Routine); Ordered 10/15/23 Ordered By: Nuris Adam Consulting provider completed their portion of the discharge: Yes Additional Instructions: PICC dressing changes weekly, saline flush PICC BID. Activity Level: No Weight Bearing Discharge Diet: Diabetic Follow Up Appointments: Wesley Prasad MD [Primary Care Provider] - Ciro Hoyt DPM [Staff Physician] - (Sunday) Forms: [facility] Info Instructions Wound Care: keep dressing clean and dry. Admit to: SNF Discharge Potential: Good Length of Stay: 30-90 days Can use facility standing orders?: Yes Code Status: Full Code TEDs: N/A Rehab Potential: Good Therapy: Physical Therapy and Occupational Therapy Therapy Orders: Evaluate and Treat Oxygen: No Urinary Catheter: No Lab Orders: creatinine Sunday, CBC and BMP weekly (Mondays) Orders are good >30 days: No
[2023-10-15] MEDS: OXYCODONE 5 MG TABLET PO (10:05)
--- NOTE | 2023-10-15 10:07 | W.PM.PODPN ---
Podiatry-PN: Subj Subjective Time Seen by Provider: 07:00 Date Seen: 10/15/23 Interval history: Joey seen bedside this a.m.. He has no current complaints. He discussed with me the reaction to the previous antibiotic but is feeling better. Planning for transfer to [facility]. Has a appointment later today to initiate hyperbaric oxygen. Exam Narrative: Exam Narrative: Dressing change. It does not appear to be any further signs of infection to the skin surrounding the incision area. There is minimal edema. Erythema is mostly resolved. Incision is healing well no evidence for drainage. Proximal bolster area appears to be staying coapted without skin necrosis. Assessment: Postop day 6 primary closure following 5th ray amputation, osteomyelitis 5th metatarsal Plan: Planning discharge to [facility] for continued IV antibiotics. Will start hyperbaric oxygen soon. [facility] with [facility] for [facility] care. Nonweightbearing to the right lower extremity. No dressing changes necessary as he will be going to wound care center. sterile dressing applied today. Const: Vital Signs, click to edit/add: Vital Signs - 24 hr 10/14/23 11:00 10/14/23 17:23 10/14/23 20:32 Temperature 98.3 F 97.9 F 97.5 F L Pulse Rate [Pulse Oximeter] 57 L 68 66 Respiratory Rate 16 20 18 Blood Pressure [Le ft Arm] 117/56 L 130/59 L 142/64 H Pulse Oximetry 95 94 95 Oxygen Delivery Me thod Room Air Room Air Room Air 10/14/23 22:50 10/14/23 22:53 10/14/23 23:26 Temperature 98.4 F Pulse Rate [Pulse Oximeter] 69 69 Respiratory Rate 18 18 18 Blood Pressure [Le ft Arm] 151/61 H Pulse Oximetry 96 Oxygen Delivery Me thod Room Air 10/15/23 02:50 10/15/23 05:18 10/15/23 07:00 Temperature 98.5 F Pulse Rate [Pulse Oximeter] 57 L Respiratory Rate 18 18 20 Blood Pressure [Le ft Arm] 151/71 H Pulse Oximetry 96 Oxygen Delivery Me thod Room Air 10/15/23 07:00 Temperature Pulse Rate [Pulse Oximeter] Respiratory Rate 20 Blood Pressure [Le ft Arm] Pulse Oximetry Oxygen Delivery Me thod Documenting provider has reviewed patient's vital signs: yes Podiatry-PN: Obj Labs Labs: Laboratory Results - last 24 hr 10/15/23 05:55 WBC 12.77 H RBC 3.32 L Hgb 9.9 L Hct 31.5 L MCV 95 MCH 30 MCHC 31 L RDW Coeff of Kushal 13.1 Plt Count 228 Neut % (Auto) 80.8 H Lymph % (Auto) 9.7 L [place] % (Auto) 4.9 Eos % (Auto) 4.1 Baso % (Auto) 0.1 Neut # (Auto) 10.30 H Lymph # (Auto) 1.20 [place] # (Auto) 0.60 Eos # (Auto) 0.50 Baso # (Auto) 0.00 Abs Immat Gran (auto) 0.10 Imm/Tot Granulo (auto) 0.4 Sodium 137 Potassium 4.4 Chloride 109 Carbon Dioxide 24 Anion Gap 4 L BUN 44 H Creatinine 1.7 H Estimated Creat Clear 43.03 Estimated GFR 45 Glucose 141 H Calcium 8.6 C-Reactive Protein < 0.5 L
--- NOTE | 2023-10-15 10:29 | PC.SOCIAL ---
Discharge planning: Called [facility] and spoke with Daya in admitting, who is aware of appointment at the [facility] prior to admit to [facility]. Daya states WOund Care appointments are excluded from daily rate of the senior care, so possibility of out pt Wound Care appointments is not a concern to the senior care. Secure emailed discharge orders to [facility] and confirmed receipt. PAS completed and submitted PAS#[id number]. Pt to be transported [facility] appointment to [facility] for admit by EMS. is aware and agrees to pay privately for this transportation.
== END 2023-10-15 11:23 | DRG 616 ==
LOC: ED 14:45 → MEDSURG 15:07
PROVIDERS: Family Medicine; Podiatrist; Admitting Provider Family Medicine; Emergency Provider Family Medicine; PCP Family Medicine; Visit Provider Family Medicine
DX: E11.621 Type 2 diabetes mellitus with foot ulcer (principal); A48.0 Gas gangrene; M86.171 Other acute osteomyelitis, right ankle and foot; E11.52 Type 2 diabetes mellitus with diabetic peripheral angiopathy with gangrene; Z16.19 Resistance to other specified beta lactam antibiotics; Z68.41 Body mass index [BMI] 40.0-44.9, adult; N17.8 Other acute kidney failure; E11.628 Type 2 diabetes mellitus with other skin complications; L97.514 Non-pressure chronic ulcer of other part of right foot with necrosis of bone; Z79.85 Long-term (current) use of injectable non-insulin antidiabetic drugs; Z79.84 Long term (current) use of oral hypoglycemic drugs; B95.2 Enterococcus as the cause of diseases classified elsewhere; B96.89 Other specified bacterial agents as the cause of diseases classified elsewhere; L03.031 Cellulitis of right toe; E11.22 Type 2 diabetes mellitus with diabetic chronic kidney disease; I12.9 Hypertensive chronic kidney disease with stage 1 through stage 4 chronic kidney disease, or unspecified chronic kidney disease; N18.30 Chronic kidney disease, stage 3 unspecified; G47.33 Obstructive sleep apnea (adult) (pediatric); G54.6 Phantom limb syndrome with pain; E66.9 Obesity, unspecified; M47.816 Spondylosis without myelopathy or radiculopathy, lumbar region; E80.4 Gilbert syndrome; E11.40 Type 2 diabetes mellitus with diabetic neuropathy, unspecified; E11.319 Type 2 diabetes mellitus with unspecified diabetic retinopathy without macular edema; T78.49XA Other allergy, initial encounter; Z89.512 Acquired absence of left leg below knee; Z89.421 Acquired absence of other right toe(s); E78.5 Hyperlipidemia, unspecified
CPT/HCPCS: 01480; 36415; 36573; 71045; 73620; 80048; 80053; 81001; 82803; 82962; 83036; 83605; 84145; 85025; 85027; 86140; 87040; 87070; 87075; 87076; 87086; 87186; 87205; 87631; 88304; 88311; 97110; 97140; 97161; 97166; 97530; 99140; 99284; 99285; A4221; A9270; C1751; J0665; J0696; J0743; J1170; J1200; J1642; J2250; J2405; J2543; J2704; J2765; J2930; J3010; J3370; J3490; J7030; J7050; J7120; J7512

== ENCOUNTER 2023-10-15 10:11 | Outpatient (CLI) | payer OTHER, SELFPAY | END 2023-10-15 10:12 | disposition home or self-care (01) | PROVIDERS: PCP Family Medicine; Visit Provider Nurse Practitioner Family | DX: E11.621 Type 2 diabetes mellitus with foot ulcer (principal); M86.171 Other acute osteomyelitis, right ankle and foot; L97.514 Non-pressure chronic ulcer of other part of right foot with necrosis of bone; N18.30 Chronic kidney disease, stage 3 unspecified; Z79.4 Long term (current) use of insulin; Z79.84 Long term (current) use of oral hypoglycemic drugs; Z89.512 Acquired absence of left leg below knee | CPT/HCPCS: G0463 ==

== ENCOUNTER 2023-10-15 11:20 | Outpatient (CLI) | payer OTHER, SELFPAY | END 2023-10-15 11:21 | disposition home or self-care (01) | LOC: AMB 10-16 12:38 | PROVIDERS: PCP Family Medicine; Visit Provider Family Medicine | DX: E11.621 Type 2 diabetes mellitus with foot ulcer (principal); Z99.3 Dependence on wheelchair | CPT/HCPCS: A0425; A0428 ==

== ENCOUNTER 2023-10-17 03:37 | Outpatient (CLI) | payer OTHER, SELFPAY | END 2023-10-17 03:38 | disposition home or self-care (01) | LOC: AMB 10-18 11:23 | PROVIDERS: PCP Family Medicine; Visit Provider Family Medicine | DX: T82.599A Other mechanical complication of unspecified cardiac and vascular devices and implants, initial encounter (principal) | CPT/HCPCS: A0425; A0429 ==

== ENCOUNTER 2023-10-17 03:53 | Emergency (ER) | payer OTHER, SELFPAY ==
[2023-10-17 04:01] VITALS: BP 153/63; PULSE 58; RESP 16; TEMP 36.3; O2SAT 97; BMI 42.6
--- NOTE | 2023-10-17 04:31 | ED.GENADULT ---
HPI - General Adult General Chief complaint: Post Op Complication Stated complaint: complication Time Seen by Provider: 10/17/23 04:07 Source: patient Mode of arrival: EMS History of Present Illness HPI narrative: 63-year-old male presents the emergency department by EMS. He was transferred here from his detention facility due to inability to use his PICC line to infuse his 4 times daily antibiotic. PICC line was placed on the . He was discharged from the hospital on the . Here I but the facility and had been receiving his IV antibiotic but they did not have the heparin flushes that were ordered to manage the PICC line. They had hoped that the frequent use and saline flushes were going to be enough to maintain the line and unfortunately, it seems to have become clogged. The nurse was unable to Prime the line prior to infusing is antibiotic tonight. He feels well, no fevers. Zosyn is being used to treat to foot infection of his 1 remaining foot. No other complications have been noted. He does have a history of chronic kidney disease. No recent fever. Accompanying paperwork is reviewed. ROS is otherwise negative times 12 systems. Related Data Home Medications Medication Instructions Recorded Confirmed amlodipine 10 mg tablet 10 mg PO DAILY 10/05/23 10/05/23 aspirin 81 mg tablet,delayed 81 mg PO DAILY 10/05/23 10/05/23 release atorvastatin 20 mg tablet 20 mg PO DAILY 10/05/23 10/05/23 glipizide 10 mg tablet, extended 20 mg PO DAILY 10/05/23 10/05/23 release 24 hr lisinopril 20 mg tablet 20 mg PO DAILY 10/05/23 10/05/23 lisinopril 20 1 tab PO DAILY 10/05/23 10/05/23 mg-hydrochlorothiazide 25 mg tablet Previous Rx's Medication Instructions Recorded piperacillin-tazobactam 3.375 gram 3.375 g IVPB Q6H 6 weeks #168 ea 10/12/23 intravenous solution piperacillin-tazobactam 3.375 3.375 g (56.25 mL) IV Q6H 10/12/23 gram/50 mL dextrose(iso-os) IV osteomyelitis 6 weeks piggyback (Zosyn) Lactobacillus acidophilus 0.5 mg 100 mmu cells PO TIDWM #180 tabs 10/15/23 (100 million cell) tablet cetirizine 10 mg tablet 10 mg PO DAILY #4 tabs 10/15/23 famotidine 20 mg tablet (Acid 20 mg PO BID #8 tabs 10/15/23 Employee Relations Consultant (famotidine)) insulin aspart U-100 100 unit/mL See Rx Instructions .Route 10/15/23 (3 mL) subcutaneous pen .COMPLEX #15 mL insulin detemir U-100 100 unit/mL 5 unit (0.05 mL) subcut HS #15 mL 10/15/23 (3 mL) subcutaneous pen (Levemir FlexPen) insulin detemir U-100 100 unit/mL 10 unit (0.1 mL) subcut DAILY #15 10/15/23 (3 mL) subcutaneous pen (Levemir mL FlexPen) menthol 2.5 % topical gel (BenGay 1 applic topical Q6H #15 grams 10/15/23 Vanishing Scent) oxycodone 5 mg tablet 5 mg PO Q4H PRN #30 tabs 10/15/23 prednisone 20 mg tablet 40 mg (2 x 20 mg) PO DAILYWM 3 10/15/23 days #6 tabs Allergies Allergy/AdvReac Type Severity Reaction Status Date / Time imipenem Allergy Severe Rash Verified 10/17/23 05:33 canagliflozin [From Invokana] AdvReac Severe Vomiting Verified 10/17/23 05:33 liraglutide [From Victoza] AdvReac Intermediate Verified 10/17/23 05:33 metformin AdvReac Intermediate Verified 10/17/23 05:33 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) Phantom limb pain ?G54.6 - Phantom limb syndrome with pain (ICD-10) CKD (chronic kidney disease) stage 3, GFR 30-59 ml/min ?N18.30 - Chronic kidney disease, stage 3 unspecified (ICD-10) Type 2 diabetes mellitus ?E11.9 - Type 2 diabetes mellitus without complications (ICD-10) Degenerative joint disease (DJD) of lumbar spine ?M47.816 - Spondylosis without myelopathy or radiculopathy, lumbar region (ICD-10) Hypertension ?I10 - Essential (primary) hypertension (ICD-10) Obesity ?E66.9 - Obesity, unspecified (ICD-10) Surgical History Status post below-knee amputation of left lower extremity ?Z89.512 - Acquired absence of left leg below knee (ICD-10) Amputation of fifth toe of left foot ?S98.132A - Complete traumatic amputation of one left lesser toe, initial encounter (ICD-10) H/O spinal fusion ?Z98.1 - Arthrodesis status (ICD-10) Below-knee amputation of left lower extremity ?S88.112A - Complete traumatic amputation at level between knee and ankle, left lower leg, initial encounter (ICD-10) Social History What is your current living situation?: I presently have a place to live Problems where you live: no known problems Problems where you live details: none known In the past 12 months, utilities in danger of being shut off: no In past 12 months, lack of transportation kept you from medical appts, meetings, work, or getting things needed for daily living: no In the past 12 mos, have been you worried that your food would run out before you had money to buy more?: never true In the past 12 mos, the food you bought just didn't last and you didn't have money to buy more?: never true Smoking Status: Never smoker How often do you have a drink containing alcohol: monthly or less AUDIT-C Alcohol total score: 1 Non-prescribed substance use: denies use How often does anyone, including family, friends and others, physically hurt you: never How often does anyone, including family, friends and others, insult or talk down to you: never How often does anyone, including family, friends and others, threaten you with harm: never How often does anyone, including family, friends and others, scream or curse at you: never Exam Const: Vital Signs, click to edit/add: Vital Signs - 24 hr 10/17/23 04:01 Temperature 97.3 F L Pulse Rate [Pulse Oximeter] 58 L Respiratory Rate 16 Blood Pressure [Ri ght Upper Arm] 153/63 H Pulse Oximetry 97 Oxygen Delivery Me thod Room Air Documenting provider has reviewed patient's vital signs: yes Common normals: no apparent distress General appearance: cooperative Other: Good historian. Calm, appears well hydrated and well nourished, nontoxic. HENMT: Common normals: normocephalic Head and scalp: normocephalic Mouth: oral and palatal mucosa normal Neck & C-Spine: General: normal visual inspection Resp: Common normals: normal respiratory effort, no use of accessory muscles and clear to auscultation bilaterally Effort & inspection: able to speak in complete sentences Auscultation: clear to auscultation bilaterally Cardio: Common normals: regular rate, regular rhythm, S1 normal heart sound, S2 normal heart sound and no murmurs Rate: regular rate Rhythm: regular rhythm Heart sounds: S1 normal and S2 normal Extremity: Other: Pressing around PICC site in upper right forearm. No surrounding significant redness or sign of abnormality. Attempt at flushing unsuccessful. Left [id number] amputation noted, not new. Wound on right foot is not examined. Psych: Attitude: engaged Activity/motor behavior: appropriate eye contact Insight: insight good Judgement: judgment good Course Course ED Course: Attempted to flush with saline, unable to do so. Will insert 2 mL of Cathflo, wait 30 minutes try to drain back. If still unsuccessful, weight 2 hours. Is still unsuccessful, consult PICC team. If successful, will give missed dose of Zosyn and heparin lock. I will ask the laborer [facility] to figure out how we can get some heparin to discharge with him if we are successful and able. Update: Cathflo inserted, waiting our 30 minutes to draw back. I have ordered 5 heparin flushes that will be sent with the patient in sealed supply. These will be charged through the emergency department. There really is no other safe way to facilitate getting these for him in the middle of the night. Cath flow was very expensive and transport to the emergency department for this service is a poor use of hospital resources, [facility] time and the patient's time. Hopefully the heparin flushes can get him through until his detention facility can order the supply that he needs. Reevaluation(s) Reevaluation #1: We were able to unclog the PICC line with Cathflo. Zosyn was administered and heparin locked as ordered. Will send patient with 5 extra heparin flushes to get him through until his supply can be delivered. These were ordered through our system and dispense to him in person. This was the only way to facilitate safe appropriate care for this patient overnight. He will be discharged back to detention facility with no changes to his previous orders. Vital Signs Vital signs: Initial Vital Signs Temperature 97.3 F L 10/17/23 04:01 Temperature Source Temporal Artery Scan 10/17/23 04:01 Pulse Rate 58 L 10/17/23 04:01 Respiratory Rate 16 10/17/23 04:01 Blood Pressure 153/63 H 10/17/23 04:01 Blood Pressure Mean 93 10/17/23 04:01 Blood Pressure Position Supine 10/17/23 04:01 Pulse Oximetry 97 10/17/23 04:01 Oxygen Delivery Method Room Air 10/17/23 04:01 Vital Signs Temperature 97.3 F L 10/17/23 04:01 Pulse Rate 58 L 10/17/23 04:01 Respiratory Rate 16 10/17/23 04:01 Blood Pressure 153/63 H 10/17/23 04:01 Pulse Oximetry 97 10/17/23 04:01 Oxygen Delivery Method Room Air 10/17/23 04:01 Temperature 97.3 F L 10/17/23 04:01 Pulse Rate 58 L 10/17/23 04:01 Respiratory Rate 16 10/17/23 04:01 Blood Pressure 153/63 H 10/17/23 04:01 Pulse Oximetry 97 10/17/23 04:01 Oxygen Delivery Method Room Air 10/17/23 04:01 Medications Administered Medications: Generic Name Dose Route Start Last Admin Trade Name Freq PRN Reason Stop Dose Admin Alteplase, Recombinant 2 mg 10/17/23 04:11 10/17/23 04:39 Alteplase 2 Mg Inj IVF 10/17/23 04:12 2 mg ONCE ONE Administration Heparin Sodium (Porcine) 100 unit 10/17/23 04:46 10/17/23 05:46 Heparin 500 Unit/5 Ml Syringe IVF 10/17/23 04:47 100 unit ONCE ONE Administration Heparin Sodium (Porcine) 100 unit 10/17/23 04:54 10/17/23 05:49 Heparin 500 Unit/5 Ml Syringe IVF 10/17/23 04:55 100 unit 5XD ONE Administration Piperacillin Sod/Tazobactam 100 mls @ 200 mls/hr 10/17/23 04:24 10/17/23 05:46 Sod 3.375 gm/ Sodium Chloride IVPB 10/17/23 04:25 Infused ONCE ONE Infusion Discharge Plan Discharge Clinical Impression: Occluded PICC line Patient Disposition: Home w/ Parent or Adult Condition: Improved Instructions: How to Flush Your PICC (Peripherally Inserted Central Catheter) (ED) Additional Instructions: I am glad that we were able to get your pick opened. You have received your antibiotic. Continue on the schedule as outlined by her previous physician orders. We have sent you with a few doses of heparin to get you through until the pharmacy can deliver your supply. Activity Level: No Restrictions Discharge Diet: Regular Prescriptions: No Action glipizide 10 mg tablet extended release 24hr 20 mg PO DAILY lisinopril 20 mg tablet 20 mg PO DAILY Hold Instructions: Resume on 10/18/23. amlodipine 10 mg tablet 10 mg PO DAILY aspirin 81 mg tablet,delayed release (DR/EC) 81 mg PO DAILY Hold Instructions: Resume on 10/23/23. atorvastatin 20 mg tablet 20 mg PO DAILY lisinopril-hydrochlorothiazide 20-25 mg tablet 1 tab PO DAILY Hold Instructions: Resume on 10/18/23. Zosyn in dextrose (iso-osm) 3.375 gram/50 mL piggyback 3.375 g IV Q6H 42 Days piperacillin-tazobactam 3.375 gram Recon Soln 3.375 g IVPB Q6H 42 Days Qty: 168 0RF cetirizine 10 mg Tablet 10 mg PO DAILY Qty: 4 0RF famotidine [Acid Employee Relations Consultant (famotidine)] 20 mg Tablet 20 mg PO BID Qty: 8 0RF insulin aspart U-100 100 unit/mL (3 mL) Insulin Pen See Rx Instructions .ROUTE .COMPLEX Qty: 15 0RF Rx Instructions: Blood Glucose 150 or less No coverage Blood Glucose 151-200 1 unit Blood Glucose 201-250 2 units Blood Glucose 251-300 3 units Blood Glucose 301-350 4 units Blood Glucose 351 to 400 5 units Blood Glucose 401 and greater 6 units and recheck in 2 hours Levemir FlexPen 100 unit/mL (3 mL) Insulin Pen 5 unit subcut HS Qty: 15 0RF Levemir FlexPen 100 unit/mL (3 mL) insulin pen 10 unit subcut DAILY Qty: 15 0RF prednisone 20 mg Tablet 40 mg PO DAILYWM 3 Days Qty: 6 0RF oxycodone 5 mg Tablet 5 mg PO Q4H PRNQty: 30 0RF BenGay Vanishing Scent 2.5 % Gel 1 applic topical Q6H Qty: 15 0RF Lactobacillus acidophilus 0.5 mg (100 million cell) Tablet 100 mmu cells PO TIDWM Qty: 180 0RF Follow Up/Referrals: Wesley Prasad MD [Primary Care Provider] - Stand Alone [facility] Info Inst[facility]
[2023-10-17] MEDS: ALTEPLASE 2 MG INJ IVF (04:39)
[2023-10-17] MEDS: PIPERACILLIN/TAZOBACTAM 3.375 GM in 0.9 % SODIUM CHLORIDE Mini-bag 100 ML IVPB (05:11)
[2023-10-17] MEDS: HEPARIN 500 UNIT/5 ML SYRINGE 100 UNIT IVF ×2 (05:46→05:49)
== END 2023-10-17 06:32 | disposition home or self-care (01) ==
PROVIDERS: Emergency Provider Family Medicine; PCP Family Medicine
DX: T82.898A Other specified complication of vascular prosthetic devices, implants and grafts, initial encounter (principal)
CPT/HCPCS: 82565; 99283; J1642; J2543; J2997

== ENCOUNTER 2023-10-22 14:57 | Outpatient (CLI) | payer OTHER, SELFPAY | END 2023-10-22 14:58 | disposition home or self-care (01) | LOC: WOUND 14:57 | PROVIDERS: PCP Family Medicine; Visit Provider Physician Assistant | DX: M86.171 Other acute osteomyelitis, right ankle and foot (principal); E11.621 Type 2 diabetes mellitus with foot ulcer; L97.514 Non-pressure chronic ulcer of other part of right foot with necrosis of bone; N18.30 Chronic kidney disease, stage 3 unspecified; Z79.4 Long term (current) use of insulin; E11.22 Type 2 diabetes mellitus with diabetic chronic kidney disease; Z79.84 Long term (current) use of oral hypoglycemic drugs | CPT/HCPCS: 82962; G0277; G0463 ==

== ENCOUNTER 2023-10-26 08:00 | Outpatient (RCR) | payer OTHER, SELFPAY | END 2023-10-28 23:59 | disposition home or self-care (01) | LOC: WOUND 08:00 | PROVIDERS: PCP Family Medicine; Visit Provider Nurse Practitioner Family | DX: M86.171 Other acute osteomyelitis, right ankle and foot (principal); E11.621 Type 2 diabetes mellitus with foot ulcer; L97.514 Non-pressure chronic ulcer of other part of right foot with necrosis of bone; E11.22 Type 2 diabetes mellitus with diabetic chronic kidney disease; N18.30 Chronic kidney disease, stage 3 unspecified; Z89.512 Acquired absence of left leg below knee; Z79.4 Long term (current) use of insulin; Z79.84 Long term (current) use of oral hypoglycemic drugs | CPT/HCPCS: 82962; G0277; G0463 ==

== ENCOUNTER 2023-11-12 07:58 | Outpatient (CLI) | payer OTHER, SELFPAY | END 2023-11-12 07:59 | disposition home or self-care (01) | LOC: WOUND 07:58 | PROVIDERS: PCP Family Medicine; Visit Provider Nurse Practitioner Family | DX: M86.171 Other acute osteomyelitis, right ankle and foot (principal); E11.621 Type 2 diabetes mellitus with foot ulcer; L97.514 Non-pressure chronic ulcer of other part of right foot with necrosis of bone; Z79.4 Long term (current) use of insulin; Z79.84 Long term (current) use of oral hypoglycemic drugs | CPT/HCPCS: 82962; 97597; G0277 ==

== ENCOUNTER 2023-11-22 08:17 | Outpatient (CLI) | payer OTHER, SELFPAY | END 2023-11-22 08:18 | disposition home or self-care (01) | LOC: WOUND 08:17 | PROVIDERS: PCP Family Medicine; Visit Provider Nurse Practitioner Family | DX: E11.621 Type 2 diabetes mellitus with foot ulcer (principal); M86.171 Other acute osteomyelitis, right ankle and foot; I87.2 Venous insufficiency (chronic) (peripheral); L97.514 Non-pressure chronic ulcer of other part of right foot with necrosis of bone; I89.0 Lymphedema, not elsewhere classified; Z79.4 Long term (current) use of insulin; Z79.84 Long term (current) use of oral hypoglycemic drugs | CPT/HCPCS: 82962; 97597; G0277 ==

== ENCOUNTER 2023-11-27 08:00 | Outpatient (RCR) | payer OTHER, SELFPAY | END 2023-11-27 23:59 | disposition home or self-care (01) | LOC: WOUND 08:00 | PROVIDERS: PCP Family Medicine; Visit Provider Nurse Practitioner Family | DX: M86.171 Other acute osteomyelitis, right ankle and foot (principal); E11.621 Type 2 diabetes mellitus with foot ulcer; L97.514 Non-pressure chronic ulcer of other part of right foot with necrosis of bone; Z79.4 Long term (current) use of insulin; Z79.84 Long term (current) use of oral hypoglycemic drugs | CPT/HCPCS: 82962; G0277 ==

== ENCOUNTER 2023-12-06 07:57 | Outpatient (CLI) | payer OTHER, SELFPAY | END 2023-12-06 07:58 | disposition home or self-care (01) | LOC: WOUND 07:57 | PROVIDERS: PCP Family Medicine; Visit Provider Nurse Practitioner Family | DX: M86.171 Other acute osteomyelitis, right ankle and foot (principal); E11.621 Type 2 diabetes mellitus with foot ulcer; L97.514 Non-pressure chronic ulcer of other part of right foot with necrosis of bone; Z79.4 Long term (current) use of insulin; Z79.84 Long term (current) use of oral hypoglycemic drugs | CPT/HCPCS: 82962; 97597; G0277 ==

== ENCOUNTER 2023-12-17 08:00 | Outpatient (RCR) | payer OTHER, SELFPAY | END 2023-12-28 23:59 | disposition home or self-care (01) | LOC: WOUND 08:00 | PROVIDERS: PCP Family Medicine; Visit Provider Nurse Practitioner Family | DX: M86.171 Other acute osteomyelitis, right ankle and foot (principal); E11.621 Type 2 diabetes mellitus with foot ulcer; L97.514 Non-pressure chronic ulcer of other part of right foot with necrosis of bone; I87.2 Venous insufficiency (chronic) (peripheral); Z79.4 Long term (current) use of insulin; Z79.84 Long term (current) use of oral hypoglycemic drugs | CPT/HCPCS: 82962; G0277; G0463 ==

== ENCOUNTER 2023-12-17 10:25 | Outpatient (CLI) | payer OTHER, SELFPAY | END 2023-12-17 10:26 | disposition home or self-care (01) | LOC: WOUND 10:26 | PROVIDERS: PCP Family Medicine; Visit Provider Nurse Practitioner Family | DX: E11.621 Type 2 diabetes mellitus with foot ulcer (principal); M86.171 Other acute osteomyelitis, right ankle and foot; L97.518 Non-pressure chronic ulcer of other part of right foot with other specified severity; I89.0 Lymphedema, not elsewhere classified; Z79.4 Long term (current) use of insulin; Z79.84 Long term (current) use of oral hypoglycemic drugs | CPT/HCPCS: 82962; G0277; G0463 ==

== ENCOUNTER 2024-12-12 08:54 | Outpatient (CLI) | payer BC, SELFPAY | END 2024-12-12 08:55 | disposition home or self-care (01) | PROVIDERS: PCP Family Medicine; Visit Provider Nurse Practitioner Family | DX: L89.892 Pressure ulcer of other site, stage 2 (principal); E11.622 Type 2 diabetes mellitus with other skin ulcer; Z89.512 Acquired absence of left leg below knee; Z79.85 Long-term (current) use of injectable non-insulin antidiabetic drugs; Z97.14 Presence of artificial left leg (complete) (partial) | CPT/HCPCS: G0463 ==

== ENCOUNTER 2024-12-19 08:30 | Outpatient (CLI) | payer BC, SELFPAY | END 2024-12-19 08:31 | disposition home or self-care (01) | LOC: WOUND 08:30 | PROVIDERS: PCP Family Medicine; Visit Provider Physician Assistant | DX: E11.9 Type 2 diabetes mellitus without complications (principal); Z87.2 Personal history of diseases of the skin and subcutaneous tissue; Z89.512 Acquired absence of left leg below knee; Z79.85 Long-term (current) use of injectable non-insulin antidiabetic drugs | CPT/HCPCS: G0463 ==